=== PATIENT | male | born 1955 | race Caucasian/White ===

== ENCOUNTER 2022-01-26 10:07 | Outpatient (CLI) | payer MEDICARE, SELFPAY ==
--- NOTE | 2022-01-26 10:15 | CT_ITS ---
WS: [id number] LDCT LUNG CANCER SCREENING TECHNIQUE: Noncontrast CT of the chest with coronal and sagittal reformatted images. CLINICAL INFORMATION: NICOTINE DEPENDENCE COMPARISON: None. DLP: 86.70 mGy.cm DIvol: Mean CTDIvol: 1.60 (mGy) All CT scans at [facility] use at least one of these dose optimization techniques: automat ed exposure control; mA and/or kV adjustment per patient size (includes targeted exams where dose is matched to clinical indication); or iterative reconstruction. FINDINGS: No acute pulmonary infiltrates. No focal pneumonia or pleural fluid. Small amount of nodularity along the LEFT hilum. Calcified granuloma RIGHT lower lobe. Subsegmental atelectasis RIGHT middle lobe. Normal caliber thoracic aorta. Mild aortic calcification. Coronary calcification. No mediastinal or h ilar lymphadenopathy. No axillary lymphadenopathy. Adrenal glands are normal. Normal GE junction. Hypertrophic changes thoracic spine. CT/CT lung screening [id number] IMPRESSION: LUNG-RADS: 2-Benign Appearance or Behavior FOLLOW UP: 12 Month: Continue annual screening with LDCT
== END 2022-01-26 10:08 | disposition home or self-care (01) ==
PROVIDERS: PCP Nurse Practitioner Family; Visit Provider Family Medicine
DX: Z12.2 Encounter for screening for malignant neoplasm of respiratory organs (principal); F17.210 Nicotine dependence, cigarettes, uncomplicated
CPT/HCPCS: 71271

== ENCOUNTER 2022-06-28 10:09 | Inpatient (IN) | payer MEDICARE, SELFPAY ==
[2022-06-28] VITALS (38 sets, daily range): BP systolic 119–170; BP diastolic 77–99; PULSE 73–114; RESP 17–31; TEMP 36.6–37.4; O2SAT 86–96; BMI 26.4; BMI 36.1
--- NOTE | 2022-06-28 10:15 | XRR_ITS ---
PROCEDURE INFORMATION: Exam: XR Chest Exam date and time: 06/28/2022 10:21 AM Age: 67 years old Clinical indication: Cough and dyspnea; Additional info: Dyspnea/cough TECHNIQUE: Imaging protocol: Radiologic exam of the chest. Views: 1 view. COMPARISON: CR Chest 1 [place] [id number] 09/25/2018 4:23 PM FINDINGS: Lungs: Unremarkable. No consolidation. Pleural spaces: Unremarkable. No pleural effusion. No pneumothorax. Heart/Mediastinum: Unremarkable. No cardiomegaly. Bones/joints: Unremarkable. XR/XR chest 1V portable [id number] IMPRESSION: No acute findings.
[2022-06-28 10:25] LABS: Basophils # 0.1 10^3/uL (0.0-0.1); Monocytes # 0.7 10^3/uL (0.2-0.9); Nucleated Red Blood Cells % 0 %
--- NOTE | 2022-06-28 10:28 | CTR_ITS ---
PROCEDURE INFORMATION: Exam: CT Abdomen And Pelvis With Contrast Exam date and time: 06/28/2022 12:09 PM Age: 67 years old Clinical indication: Abdominal pain; Additional info: Abd pain TECHNIQUE: Imaging protocol: Computed tomography of the abdomen and pelvis with contrast. Radiation optimization: All CT scans at this facility use at least one of these dose optimization techniques: automated exposure control; mA and/or kV adjustment per patient size (includes targeted exams where dose is matched to clinical indication); or iterative reconstruction. Contrast material: OMNI 350; Contrast volume: 80 ml; Contrast route: INTRAVENOUS (IV); COMPARISON: CT pelvis wo con [id number] 09/25/2018 3:27 PM RADIATION DOSE METRICS: Total DLP (mGy-cm): 1079.33 FINDINGS: Liver: Hepatomegaly the liver span is 20 cm. No mass. Gallbladder and bile ducts: Normal. No calcified stones. No ductal dilation. Pancreas: Normal. No ductal dilation. Spleen: Normal. No splenomegaly. Adrenal glands: Normal. No mass. Kidneys and ureters: Normal. No hydronephrosis. Stomach and bowel: Unremarkable. No obstruction. No mucosal thickening. Appendix: No evidence of appendicitis. Intraperitoneal space: Unremarkable. No free air. No significant fluid collection. Vasculature: Unremarkable. No abdominal aortic aneurysm. Lymph nodes: Unremarkable. No enlarged lymph nodes. Urinary bladder: Unremarkable as visualized. Reproductive: Unremarkable as visualized. Bones/joints: Unremarkable. No acute fracture. Soft tissues: Unremarkable. CT/CT abdomen pelvis w con* [id number] IMPRESSION: 1. Hepatomegaly without focal hepatic abnormality. 2. Otherwise No acute findings.
--- NOTE | 2022-06-28 10:31 | ECG_ITS ---
[facility] Test Date: 2022-06-28 Pat Name: Sanchez Phillips Department: Room: Gender: Male Transitional Care Liaison: : 1955 Requested By: Haresh Gan Order Number: [id number] Sumanth MD: Chinyere Rosado M.D. Measurements Intervals [place] Rate: 112 P: 72 VA: 152 QRS: -39 QRSD: 92 T: 79 QT: 310 QTc: 425 Interpretive Statements SINUS TACHYCARDIA WITH OCCASIONAL ECTOPIC PREMATURE COMPLEXES LEFT AXIS DEVIATION [QRS AXIS < -30] SEPTAL MYOCARDIAL INFARCTION , PROBABLY OLD [40+ ms Q WAVE IN V1/V2] Compared to ECG 09/25/2018 13:00:42 Myocardial infarct finding now present Electronically Signed On 06-28-2022 18:00:28 CDT by Chinyere Rosado M.D. [email or web address] [id number]
[2022-06-28 10:33] LABS: Basophils % 0.3 %; Eosinophils % 0.1 %; Hematocrit 52.8 % (42.0-52.0); Lymphocytes # 1.4 10^3/uL (0.8-4.8); Lymphocytes % 8.8 %; Mean Corpuscular HGB Conc 32.2 g/dL (30.0-36.0); Mean Corpuscular Volume 93.1 fl (80-94); Mean Platelet Volume 11.2 fL (7.4-10.4); Monocytes % 4.5 %; Neutrophils # 13.77 10^3/uL (1.8-7.7); Neutrophils % 85.7 %; Platelet Count 148 10^3/cmm (130-400); Red Blood Count 5.67 10^6/uL (4.1-5.3); Red Cell Distribution Width 13.8 % (12.1-15.1); White Blood Count 16.1 10^3/uL (4.0-10.0)
[2022-06-28 11:05] LABS: Alanine Aminotransferase 10 U/L (0-41); Albumin Level 3.6 g/dL (3.5-5.2); Alkaline Phosphatase 139 U/L (40-130); Anion Gap 16.8 (5-19); Aspartate Amino Transferase 13 U/L (0-40); Blood Urea Nitrogen 24 mg/dL (8-23); Carbon Dioxide 25 mmol/L (22-29); Chloride 102 mmol/L (98-107); Globulin 3.8 g/dL (1.3-4.6); Glomerular Filtration Rate 60.2 mL/min (90-130); Glucose 197 mg/dL (65-115); Osmolality Calculated 298 mOsm/kg (285-295); Potassium 4.8 mmol/L (3.5-5.1); Sodium 139 mmol/L (136-145); Total Bilirubin 0.8 mg/dL (0.15-1.2); Total Protein 7.4 g/dL (6.6-8.7)
[2022-06-28] MEDS: iohexol 350 mg/mL 100 mL Btl IV (12:18)
--- NOTE | 2022-06-28 12:47 | W.ED.WEAKNES ---
HPI - Weakness General: Chief complaint: Weakness Stated complaint: GENERAL WEAKNESS/ BOWEL INCONTINENCE Time Seen by Provider: 06/28/22 10:14 Source: patient Mode of arrival: EMS Limitations: no limitations History of Present Illness: 59-year-old male presents emergency room from home with generalized weakness malaise and fevers been incontinent of stool and urine. 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 Was reported to have O2 sat of 87% on room air on arrival. He normally does not use oxygen. He has not had any orthopnea or PND he has had a cough which is nonproductive subtle low-grade fever as well. On arrival here he is tachycardic requiring 2 L by nasal cannula to maintain sats in the low 90s. He has had episodes of urinary and fecal incontinence since arriving here. He denies any medication melena hematemesis or coffee-ground emesis. Patient is diabetic and has a history of COPD. Is complaining of generalized abdominal pain as well. He is not currently having any chest pain or orthopnea. MD Complaint: generalized weakness Onset (ago): hour(s) Duration: constant Location: generalized Severity: moderate Relieving factors: none Exacerbating factors: none Associated symptoms: Reports chills, decreased appetite, fever(s), myalgias, nausea, short of breath and vomiting; Denies chest pain, confusion, melena, diaphoresis, dysuria, easy bruising, headache(s), rash or syncope Review of Systems Const: Reports: fever(s), chills, fatigue and malaise; Denies: diaphoresis ENMT: Denies: throat pain, ear or mastoid pain, nasal discharge or nasal congestion Card: Denies: chest pain, palpitations or syncope Resp: Reports: dyspnea and non-productive cough; Denies: productive cough GI: Reports: abdominal pain, nausea, vomiting, diarrhea and GI cramping; Denies: melena : Denies: flank pain, difficulty urinating, dysuria, urinary frequency or urinary urgency Musc: Denies: neck pain or back pain Skin/Breast: Denies: rash or pruritus Neuro: Denies: headache(s) or confusion Brennan/Lymph: Denies: easy bruising PFSH ED PFSH: Medical History Diabetes mellitus Hypertension Family History Mother Diabetes Lung disease CAD (coronary artery disease) Social History Quit status (tobacco): not considering quitting Second hand smoke exposure: Yes Alcohol intake: former Physical Exam Const: GENERAL APPEARANCE: cooperative ORIENTATION/CONSCIOUSNESS: Yes awake, Yes oriented to person, Yes oriented to place and Yes oriented to time HENMT: COMMON NORMALS: normocephalic, atraumatic and hearing grossly normal bilaterally HEAD & SCALP: normocephalic and atraumatic Resp: COMMON NORMALS: normal respiratory effort, No retractions, No use of accessory muscles and clear to auscultation bilaterally AUSCULTATION: clear to auscultation bilaterally Cardio: COMMON NORMALS: regular rhythm and No murmurs present (Cardio) RATE: tachycardic RHYTHM: regular rhythm GI: COMMON NORMALS: No hepatosplenomegaly present AUSCULTATION: Yes normoactive bowel sounds PALPATION: Yes Tenderness to palpation present (GI) (Diffuse), No Guarding due to palpation present (GI) and Yes No hepatosplenomegaly present Extremity: COMMON NORMALS: normal to inspection, capillary refill normal, no clubbing, cyanosis or edema, no calf tenderness and no pedal edema Neuro: SENSORIUM/ORIENTATION: Yes oriented to person, Yes oriented to place and Yes oriented to time Skin: COMMON NORMALS: no rashes or lesions noted GENERAL SKIN EXAM: no rashes or lesions noted Course Vital Signs: Vital signs: Vital Signs Temperature 99.2 F 06/28/22 10:37 Pulse Rate 73 06/28/22 15:45 Respiratory Rate 29 H 06/28/22 15:15 Blood Pressure 125/79 06/28/22 15:00 Pulse Oximetry 90 06/28/22 15:45 Oxygen Delivery Me thod 06/28/22 10:15 Oxygen Flow Rate 2 06/28/22 10:15 MDM - Weakness Medical Decision Making Labs imaging and EKGs reviewed as in the chart. Patient is having some hypoxia suspect he has some pneumonia as well as potential heart failure. We will empirically start him on antibiotics discussed with hospitalist will admit done ACDF on the patient. We are also still waiting on a UA. He is mildly volume contracted with a BUN of 24. His second troponin is pending. Orders written. Medical Records I reviewed the patient's medical records. Lab Data I reviewed the patient's lab results. : 06/28/22 10:19 06/28/22 10:19 Radiology Impressions Chest X-Ray 06/28/22 10:15 IMPRESSION: No acute findings. Abdomen/Pelvis CT 06/28/22 10:28 IMPRESSION: 1. Hepatomegaly without focal hepatic abnormality. 2. Otherwise No acute findings. Laboratory Results WBC 16.1 10^3/uL (4.0-10.0) H 06/28/22 10:19 RBC 5.67 10^6/uL (4.1-5.3) H 06/28/22 10:19 Hgb 17.0 g/dL (11.7-16.6) H 06/28/22 10:19 Hct 52.8 % (42.0-52.0) H 06/28/22 10:19 MCV 93.1 fl (80-94) 06/28/22 10:19 MCH 30.0 pg (28.0-34.0) 06/28/22 10:19 MCHC 32.2 g/dL (30.0-36.0) 06/28/22 10:19 RDW 13.8 % (12.1-15.1) 06/28/22 10:19 Plt Count 148 10^3/cmm (130-400) 06/28/22 10:19 MPV 11.2 fL (7.4-10.4) H 06/28/22 10:19 Neut % (Auto) 85.7 % 06/28/22 10:19 Lymph % (Auto) 8.8 % 06/28/22 10:19 [place] % (Auto) 4.5 % 06/28/22 10:19 Eos % (Auto) 0.1 % 06/28/22 10:19 Baso % (Auto) 0.3 % 06/28/22 10:19 Neut # (Auto) 13.77 10^3/uL (1.8-7.7) H 06/28/22 10:19 Lymph # (Auto) 1.4 10^3/uL (0.8-4.8) 06/28/22 10:19 [place] # (Auto) 0.7 10^3/uL (0.2-0.9) 06/28/22 10:19 Eos # (Auto) 0.0 10^3/uL (0.0-0.8) 06/28/22 10:19 Baso # (Auto) 0.1 10^3/uL (0.0-0.1) 06/28/22 10:19 Nucleated RBC % (auto) 0 % 06/28/22 10:19 Nucleated RBCs # 0.0 /100WBC 06/28/22 10:19 Sodium 139 mmol/L (136-145) 06/28/22 10:19 Potassium 4.8 mmol/L (3.5-5.1) 06/28/22 10:19 Chloride 102 mmol/L (98-107) 06/28/22 10:19 Carbon Dioxide 25 mmol/L (22-29) 06/28/22 10:19 Anion Gap 16.8 (5-19) 06/28/22 10:19 BUN 24 mg/dL (8-23) H 06/28/22 10:19 Creatinine 1.2 mg/dL (0.7-1.2) 06/28/22 10:19 GFR Calculation 60.2 mL/min (90-130) L 06/28/22 10:19 Glucose 197 mg/dL (65-115) H 06/28/22 10:19 POC Glucose 197 mg/dL (70-110) H 06/28/22 12:46 Calculated Osmolality 298 mOsm/kg (285-295) H 06/28/22 10:19 Calcium 9.0 mg/dL (8.5-10.5) 06/28/22 10:19 Total Bilirubin 0.8 mg/dL (0.15-1.2) 06/28/22 10:19 AST 13 U/L (0-40) 06/28/22 10:19 ALT 10 U/L (0-41) 06/28/22 10:19 Alkaline Phosphatase 139 U/L (40-130) H 06/28/22 10:19 Troponin T Baseline 18 ng/L (0-15) H 06/28/22 14:02 NT-Pro-B Natriuret Pep 331 pg/mL (0-125) H 06/28/22 10:19 Total Protein 7.4 g/dL (6.6-8.7) 06/28/22 10:19 Albumin 3.6 g/dL (3.5-5.2) 06/28/22 10:19 Globulin 3.8 g/dL (1.3-4.6) 06/28/22 10:19 Discharge Plan Discharge Patient Disposition: Placed in Observation Clinical Impression: Hypoxia, Fever, Pneumonia, Diarrhea Condition: Stable Prescriptions: No Action insulin aspart U-100 [Novolog Flexpen U-100 Insulin] 100 unit/mL (3 mL) insulin pen See Rx Instructions .ROUTE .COMPLEX Rx Instructions: 3 - 5 unit subcutaneously per sliding scale Lantus U-100 Insulin 100 unit/mL solution 60 unit SUBCUT DAILY clotrimazole 1 % cream 1 applic TOPICAL BID 90 Days Qty: 90 0RF atorvastatin 40 mg Tablet 40 mg PO BEDTIME amlodipine 5 mg tablet 5 mg PO DAILY hydroxyzine HCl 25 mg tablet 25 mg PO TID PRN (Reason: Anxiety) duloxetine 60 mg Capsule,Delayed Release(Dr/Ec) 60 mg PO DAILY pregabalin 50 mg Capsule 50 mg PO TID Farxiga 10 mg Tablet 10 mg PO DAILY Advair Diskus 250-50 mcg/dose Blister With Device 1 inh INHALATION BID albuterol sulfate 90 mcg/actuation Hfa Aerosol Inhaler 2 puff INHALATION 6XD PRN (Reason: Shortness Of Breath) Referrals: Naheed Tesfaye FNP [Primary Care Provider] - Patient Instructions: Opioid Safety Coding Level of Care Code ED It Investment/Portfolio Manager for Youg Fwd Exam Detailed
[2022-06-28 12:48] LABS: Glucose Point of Care 197 mg/dL (70-110)
[2022-06-28 13:49] LABS: NT Pro B Type Natriuretic Pept 331 pg/mL (0-125)
[2022-06-28 14:33] LABS: Troponin(5th) Baseline 18 ng/L (0-15)
--- NOTE | 2022-06-28 15:07 | ECG_ITS ---
[facility] Test Date: 2022-06-28 Pat Name: Sanchez Phillips Department: Room: Gender: Male Exhibition Carver: : 1955 Requested By: Haresh Gan Order Number: [id number] Sumanth MD: Chinyere Rosado M.D. Measurements Intervals [place] Rate: 103 P: 77 [place]: 179 QRS: -14 QRSD: 101 T: 67 QT: 352 QTc: 461 Interpretive Statements SINUS TACHYCARDIA WITH OCCASIONAL ECTOPIC PREMATURE COMPLEXES Compared to ECG 06/28/2022 10:31:27 Left-axis deviation no longer present Myocardial infarct finding no longer present Electronically Signed On 06-28-2022 18:17:17 CDT by Chinyere Rosado M.D. [id number]
[2022-06-28 16:54] LABS: Troponin 5 2HR 17.71 ng/L (0-15)
--- NOTE | 2022-06-28 16:59 | P.HP_ITS ---
Providers/Chief Complaint Admitting Physician: Mary Mejia MD Primary Care Provider: Naheed Tesfaye Chief Complaint: GENERAL WEAKNESS/ BOWEL INCONTINENCE History of Present Illness Sanchez Phillips is a 67 year old male who presented to the emergency room with chief complaint of not feeling well, being unable to get out of bed and generally not feeling well today. Patient was in his usual state of health per his last evening. They ate dinner and later went to bed. Patient seemed okay prior to that. Mr. Phillips and his do sleep in separate rooms so she is not sure what happened in the interim. When she got up this morning she went to his room and the heater was on. He was mumbling and not making sense. When she evaluated a bit further he had had bladder and bowel incontinence. He does not really remember what happened. No recollection of if he had tried to get up to go to the bathroom. He spends probably 90% of his time in bed due to severe peripheral neuropathy related to diabetes and inability to stand anything touching his feet including standing on his feet. Usually however he can attend to his ADLs as needed with assistance. Patient was significantly weaker than his baseline. Even with additional family help they were unable to get him up. No definitive fever but he felt warm. Patient has had prior episodes of significant infection and family was concerned that something like that was happening again. EMS was called and brought patient in for further evaluation. They noted that his room air oxygen saturation was 87%. When specifically asked, patient admits to being maybe a little bit more short of breath. No increased cough or sputum production. Patient's says that he always ends up being sent home from hospitals with oxygen but when he gets home his oxygen levels are okay. He does not have chronic oxygen available to him at home currently. Work-up in the emergency room revealed significant stool inconti nence to the point that a rectal tube was placed. No recent antibiotic usage. No one else in the family is sick. Does not usually have issues with diarrhea. CT of the abdomen did not show any acute process. Chest x-ray was unremarkable. White count though was 16,000. Given the hypoxemia clinical impression was for pneumonia and Mr. Phillips received antibiotics. Hospitalist for asked to admit for further care and evaluation as indicated. Attempts to get urinalysis in the emergency room were thus far unsuccessful. 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 Attempt to place catheter in urethral opening behind the scrotal sac were unsuccessful and patient has declined additional attempts. Denies burning or stinging or difficulty/change in urination prior to today. Did not have any diarrhea yesterday. No vomiting. No new areas of pain identified beyond IV placement site to left forearm. Offer was made to replace IV but patient chose to maintain current line. While in the emergency room erythema developed on the right lower extremity extending up the leg. He has chronic dry skin and scratches his thighs as well as under his pannus. He follows with Dr. Gaxiola for foot care but has not seen him for some time. He has a known diabetic and has had previous wounds that were slow to heal. He has known history of peripheral vascular disease having previously undergone vascular radiofrequency ablation procedure by Dr. Cui. Review of Systems Const: Reports: fever(s) (Subjective), chills, body aches, fatigue, malaise, night sweats and diaphoresis (Has completely soaked pillow at home and here) Eyes: Denies: change in vision or photophobia ENMT: Denies: throat pain, oral sores or nasal congestion Card: Denies: chest pain, palpitations or edema Resp: Reports: dyspnea and non-productive cough; Denies: productive cough, pain on inspiration or hemoptysis GI: Reports: abdominal pain, nausea and diarrhea; Denies: vomiting, constipation or hematochezia : Reports: genital lesions (Scrotum red since penectomy; intertriginous erythema new) and other (Status post penectomy, urinates via post scrotal urethral opening); Denies: dysuria or hematuria Musc: Reports: extremity pain (Chronic related to neuropathy, hurts anywhere you touch him), muscle weakness and decrease in muscle mass Skin/Breast: Reports: rash (Chronic irritation to skin in the pannus and both thighs right greater than), pruritus (Pannus and both thighs) and erythema (To right lower extremity has developed since presentation to the emergency ); Denies: sores (Right medial ankle, thighs and abdomen) Neuro: Reports: numbness in extremities (Along with severe pain due to neuropathy), weakness in extremities (Acute on chronic generalized) and confusion (Transient when first found him this morning); Denies: headache(s) or difficulty walking Psych: Reports: anxiety and depression Endo: Reports: polydipsia (But not had much to drink today) Brennan/Lymph: Denies: easy bruising or easy bleeding Medications/Allergies Home Medications Medication Instructions Recorded Confirmed Last Taken Type clotrimazole 1 % topical cream 1 applic topical BID 3 months #90 09/03/20 06/28/22 06/27/22 Rx grams insulin aspart U-100 100 unit/mL See Rx Instructions .Route .COMPLEX 09/03/20 06/28/22 06/27/22 History (3 mL) subcutaneous pen (Novolog Flexpen U-100 Insulin aspart) insulin glargine 100 unit/mL 60 unit SUBCUT DAILY 09/03/20 06/28/22 06/27/22 History subcutaneous solution (Lantus U-100 Insulin) albuterol sulfate 90 mcg/actuation 2 puff inhalation 6XD PRN 06/28/22 06/28/22 Unknown History aerosol inhaler Shortness Of Breath amlodipine 5 mg tablet 5 mg PO DAILY 06/28/22 06/28/22 06/27/22 History atorvastatin 40 mg tablet 40 mg PO BEDTIME 06/28/22 06/28/22 06/27/22 History dapagliflozin 10 mg tablet 10 mg PO DAILY 06/28/22 06/28/22 06/27/22 History (Farxiga) duloxetine 60 mg capsule,delayed 60 mg PO DAILY 06/28/22 06/28/22 06/27/22 History release fluticasone 250 mcg-salmeterol 50 1 inh inhalation BID 06/28/22 06/28/22 06/27/22 History mcg/dose blistr powdr for inhalation (Advair Diskus) hydroxyzine HCl 25 mg tablet 25 mg PO TID PRN Anxiety 06/28/22 06/28/22 06/27/22 History pregabalin 50 mg capsule 50 mg PO TID 06/28/22 06/28/22 06/27/22 History Allergies Allergy/AdvReac Type Severity Reaction Status Date / Time No Known Allergies Allergy Verified 06/28/22 11:30 PFSH Acute PFSH: Medical History (Updated 06/28/22 @ 22:09 by Mary Mejia MD) Chronic kidney disease, stage III (moderate) COPD (chronic obstructive pulmonary disease) Depression with anxiety Diabetes mellitus, type II Diabetic peripheral neuropathy History of renal dialysis Required temporary dialysis after a severe bout of influenza Hyperlipidemia Hypertension Nicotine dependence, cigarettes, with other nicotine-induced disorders Penile cancer Peripheral vascular disease Plantar porokeratosis, acquired Surgical History (Updated 06/28/22 @ 21:54 by Mary Mejia MD) History of incision and drainage History of penectomy Prior to surgical removal due to cancer had had invasive intervention for marvin kortney stenosis and circumcision Status post endovenous radiofrequency ablation of saphenous vein Family History Mother Diabetes Lung disease CAD (coronary artery disease) Social History (Updated 06/28/22 @ 21:54 by Mary Mejia MD) Smoking and tobacco status: current every day smoker cigarettes Packs smoked per day: 1 Years cigarettes smoked: 51 Quit status (tobacco): not considering quitting Alcohol intake: former Household members: spouse Vitals/I&O/Wt Last Vital Signs Temp 99.2 F 06/28/22 10:37 Pulse 97 06/28/22 16:30 Resp 30 H 06/28/22 16:30 BP 125/79 06/28/22 15:00 Pulse Ox 90 06/28/22 16:30 O2 Del Method 06/28/22 10:15 O2 Flow Rate 2 06/28/22 10:15 Weight last 48 hrs Weight 86.183 kg Physical Exam Narrative: Constitutional: Patient is lethargic but arousable, answers questions, provides majority of details as does daughter because he cannot recall events of today fully during the time he was probably febrile, looks both acutely and chronically ill, jumps anywhere you touch him HEENT: Normocephalic, conjunctive are mildly injected, extraocular movements i ntact, oropharynx with very dry mucous membranes and erythematous posterior oropharynx with some stippling noted though patient denies any pain or difficulty swallowing, frequent yawning during exam, no photophobia Neck: Supple, large Respiratory: Clear to auscultation bilaterally without any rales rhonchi or wheezes noted Cardiovascular: Regular rate and rhythm, no murmurs, no JVD, pulses 1+ x4 Abdomen: Soft, rotund, positive bowel sounds, no rebound or guarding though tender anywhere he is touched : Status post penectomy, scrotal sac is quite erythematous but per at the bedside is similar to usual appearance, not acutely tender beyond what I would expect, soft without crepitus, I was not able to visualize urinary opening due to patient not wanting further evaluation currently but intertriginous areas around the scrotal sac with very erythematous skin with satellite lesions, not significantly odorous, no areas of externally obvious necrosis identified, has recently urinated in bed Extremities: Chronic stasis changes noted to both lower extremities with areas of hyperpigmentation bilaterally. Right lower extremity is warm to touch compared to left with defined area of erythema extending from ankle to below the knee. Skin is tender to touch though difficult to assess as patient is extremely tender anywhere you touch him in the lower extremities chronically. Literally cannot handle a whisper of a touch without withdrawing in pain. There is an approximately 5 mm round wound brownish erythematous color in the upper po rtion of the right arch of the foot medially and extending from that a line of some scabbing over a vein, no drainage the wounds look crusted. Patient has very hyperkeratotic nails as well as hypertrophic skin to both feet Skin: In addition to skin findings already noted in other parts of this examination, large area of chronic irritation at the pannus as well as on the u pper thighs with sores in different stages of healing, all appear old and scabbed rather than purulent and acute, no active bleeding seen, outer edges of these wounds are erythematous with chronic skin reconfiguration from repeated healing Neuro: Speech clear, face symmetric, moves all extremities, very hypersensitive to touch in terms of pain particularly to the lower extremities but really anywhere, no abnormal movements beyond jerking from touch's and pain Psych: Normal affect once awake Data : 06/28/22 10:19 06/28/22 10:19 Other Labs: Radiology Impressions Chest X-Ray 06/28/22 10:15 IMPRESSION: No acute findings. Abdomen/Pelvis CT 06/28/22 10:28 IMPRESSION: 1. Hepatomegaly without focal hepatic abnormality. 2. Otherwise No acute findings. Laboratory Results WBC 16.1 10^3/uL (4.0-10.0) H 06/28/22 10:19 RBC 5.67 10^6/uL (4.1-5.3) H 06/28/22 10:19 Hgb 17.0 g/dL (11.7-16.6) H 06/28/22 10:19 Hct 52.8 % (42.0-52.0) H 06/28/22 10:19 MCV 93.1 fl (80-94) 06/28/22 10:19 MCH 30.0 pg (28.0-34.0) 06/28/22 10:19 MCHC 32.2 g/dL (30.0-36.0) 06/28/22 10:19 RDW 13.8 % (12.1-15.1) 06/28/22 10:19 Plt Count 148 10^3/cmm (130-400) 06/28/22 10:19 MPV 11.2 fL (7.4-10.4) H 06/28/22 10:19 Neut % (Auto) 85.7 % 06/28/22 10:19 Lymph % (Auto) 8.8 % 06/28/22 10:19 [place] % (Auto) 4.5 % 06/28/22 10:19 Eos % (Auto) 0.1 % 06/28/22 10:19 Baso % (Auto) 0.3 % 06/28/22 10:19 Neut # (Auto) 13.77 10^3/uL (1.8-7.7) H 06/28/22 10:19 Lymph # (Auto) 1.4 10^3/uL (0.8-4.8) 06/28/22 10:19 [place] # (Auto) 0.7 10^3/uL (0.2-0.9) 06/28/22 10:19 Eos # (Auto) 0.0 10^3/uL (0.0-0.8) 06/28/22 10:19 Baso # (Auto) 0.1 10^3/uL (0.0-0.1) 06/28/22 10:19 Nucleated RBC % (auto) 0 % 06/28/22 10:19 Nucleated RBCs # 0.0 /100WBC 06/28/22 10:19 Sodium 139 mmol/L (136-145) 06/28/22 10:19 Potassium 4.8 mmol/L (3.5-5.1) 06/28/22 10:19 Chloride 102 mmol/L (98-107) 06/28/22 10:19 Carbon Dioxide 25 mmol/L (22-29) 06/28/22 10:19 Anion Gap 16.8 (5-19) 06/28/22 10:19 BUN 24 mg/dL (8-23) H 06/28/22 10:19 Creatinine 1.2 mg/dL (0.7-1.2) 06/28/22 10:19 GFR Calculation 60.2 mL/min (90-130) L 06/28/22 10:19 Glucose 197 mg/dL (65-115) H 06/28/22 10:19 POC Glucose 197 mg/dL (70-110) H 06/28/22 12:46 Calculated Osmolality 298 mOsm/kg (285-295) H 06/28/22 10:19 Calcium 9.0 mg/dL (8.5-10.5) 06/28/22 10:19 Total Bilirubin 0.8 mg/dL (0.15-1.2) 06/28/22 10:19 AST 13 U/L (0-40) 06/28/22 10:19 ALT 10 U/L (0-41) 06/28/22 10:19 Alkaline Phosphatase 139 U/L (40-130) H 06/28/22 10:19 Troponin T Baseline 18 ng/L (0-15) H 06/28/22 14:02 Troponin T 120 Minute 17.71 ng/L (0-15) H 06/28/22 16:22 Delta Troponin T -0.29 ABS# (0-10) L 06/28/22 16:22 NT-Pro-B Natriuret Pep 331 pg/mL (0-125) H 06/28/22 10:19 Total Protein 7.4 g/dL (6.6-8.7) 06/28/22 10:19 Albumin 3.6 g/dL (3.5-5.2) 06/28/22 10:19 Globulin 3.8 g/dL (1.3-4.6) 06/28/22 10:19 Micro: Microbiology 06/28/22 11:20 Occult Blood (FIT) - Final Stool Routine Collection 06/28/22 10:43 Blood Culture - Preliminary Blood SPECIMEN COLLECTED 06/28/22 10:45 Blood Culture - Preliminary Blood SPECIMEN COLLECTED A&P Assessment and plan (1) Cellulitis of right lower extremity: Likely stemming from skin sores on feet, particularly a medial sore noted at the arch of the right lower extremity Has associated leukocytosis, subjective fever and chills, transient encephalopathy that sounds related to fever and progressive red streaks on examination, at significant risk for progression to severe sepsis without appropriate treatment and intervention; currently not meeting criteria for severe sepsis otherwise. Status: Acute (2) Hypoxia: Described as acute but on further review indicates that he has frequently h ad hypoxemia when evaluated in hospital setting, known COPD and smoker, not on chronic oxygen though has been discharged with oxygen previously. Indicates that when he gets home his oxygen levels have always been okay. No pleuritic type chest pain but does describe some increased shortness of breath and a nonproductive cough. No known history of coronary disease or CHF. Has not had COVID. No known sick contacts with COVID. COVID testing remains pending. Status: Acute (3) Diarrhea: Large-volume today, suspect related to overall infectious process currently. Await urine. No recent antibiotics or known sick contacts. Status: Acute (4) Diabetes mellitus, type II: Insulin requiring, with peripheral neuropathy and chronic kidney disease. Neuropathy is quite severe and debilitating for Mr. Phillips limiting his activity level and drastically altering his pain threshold. Chronically on Lantus as well as short acting insulin and Farxiga On gabapentin for neuropathy Status: Chronic Qualifiers: Diabetes mellitus termite exterminator helper insulin use: with termite exterminator helper use Diabetes mellitus complication status: with neurologic complications Diabetes mellitus complication detail: with polyneuropathy Qualified Code(s): E11.42 - Type 2 diabetes mellitus with diabetic polyneuropathy; Z79.4 - [facility] (current) use of insulin (5) Tinea cruris: Status: Acute (6) COPD (chronic obstructive pulmonary disease): Clinically does not appear acute at the moment beyond the hypoxemia noted on examination, no wheezes or productive cough. Chronically on albuterol and Advair Status: Chronic (7) Hypertension: Chronically on amlodipine Status: Chronic (8) Chronic kidney disease, stage III (moderate): With prior history of transient dialysis during an episode of severe influenza back in 2013 Status: Chronic Qualifiers: Chronic kidney disease stage 3 subtype: stage 3a (GFR 45-59) Qualified Code(s): N18.31 - Chronic kidney disease, stage 3a (9) Nicotine dependence, cigarettes, with other nicotine-induced disorders: Status: Chronic (10) Body mass index [BMI] 36.0-36.9, adult: Status: Chronic Plan Dyslipidemia on chronic statin therapy Anxiety and depression on Cymbalta and as needed hydroxyzine Inpatient admission Vancomycin and Zosyn Monitor sores to right foot and right lower extremity for acute clinical changes Elevate right lower extremity Check baseline sed rate and CRP Add Diflucan orally and continue clotrimazole cream Follow-up pending urine -reviewed with nursing staff options to get as close to a clean-catch specimen as we are able including a pedi bag, bedpan with extended prep and the lack; patient declines any further attempts at catheterization of urinary meatus Follow-up pending COVID testing Blood cultures have been collected Check procalcitonin Continue albuterol and Advair along with oxygen supplementation Check room air ABG Will decrease dose of Lantus to 50 units until we ensure he is taking appropriate oral intake along with moderate dose sliding scale Hold home Farxiga Continue home gabapentin Presently holding home amlodipine until assured of patient's stability We will continue low rate of IV fluids tonight, reevaluating electrolytes and overall volume status tomorrow Continue already ordered serial cardiac enzymes and EKGs Continue home statin therapy Continue home duloxetine and hydroxyzine as needed Nicotine patch if needed Add lactobacillus Lovenox for DVT prophylaxis Supportive care otherwise Currently anticipate discharge home with outpatient follow-up; depending on clinical course may benefit from short-term home health Findings, concerns and plans were reviewed with patient, his and his daughter and all were given an opportunity to ask questions. Patient was clear in his dislike of the hospital but willing to stay understanding that he is in current need of care. He has not been hospitalized for several years. Full code Attestations Medical Necessity Statement*: Anticipated stay greater than two midnights in this gentleman with comorbid conditions presenting with cascade of symptoms strongly suggestive of acute infectious process who has been found to have developing cellulitis of the right lower extremity. In addition to this he was found to be hypoxic. Likely has a component of chronic hypoxemia related to COPD and ongoing tobacco use but at risk for acute pulmonary process as well. Initial imaging unremarkable. Alternative source is skin in the groin and other areas where he has chronic dry skin and itching and has scratched himself. Given his limited baseline activity and comorbidities at high risk of rapid clinical decline without monitored inpatient care and treatment as described Coding Level of Care Code Acute Parachute Inspector for Martha Fwd Diagnoses Cellulitis of right lower extremity L03.115 Hypoxia R09.02 Diarrhea R19.7 Diabetes mellitus, type II E11.42; Z79.4 Diabetes mellitus termite exterminator helper insulin use: with termite exterminator helper use Diabetes mellitus complication status: with neurologic complications Diabetes mellitus complication detail: with polyneuropathy Tinea cruris B35.6 COPD (chronic obstructive pulmonary disease) J44.9 Hypertension I10 Chronic kidney disease, stage III (moderate) N18.31 Chronic kidney disease stage 3 subtype: stage 3a (GFR 45-59) Nicotine dependence, cigarettes, with other nicotine-induced disorders F17.218 Body mass index [BMI] 36.0-36.9, adult Z68.36
[2022-06-28 17:01] LABS: Troponin 5 2HR Delta -0.29 ABS# (0-10)
--- NOTE | 2022-06-28 18:32 | USCV_ITS ---
Sanchez Phillips Age: 67 Gender: M : 1955 Exam Date: 06/28/2022 23:41 Ordering Phys: Mary Mejia MD Technologist: VANESA Exam Location: [facility] [place] Indication: severe neuropathy, chronic cellulitis, No history of DVT per patient. HISTORY: severe neuropathy, chronic cellulitis, No history of DVT per patient. PROCEDURES: Venous duplex imaging was performed in bilateral lower extremities. The venous duplex Doppler examination of both lower extremities was performed in the standard fashion. The following venous structures were evaluated: common femoral vein, profunda vein, proximal portion of the greater saphenous vein, superficial femoral vein, and the popliteal vein. In addition, the posterior tibial veins were evaluated. Serial compression, augmentation maneuvers, and spectral Doppler flow evaluation were performed, which were normal. Bilaterally, the common femoral, superficial femoral, profunda femoral, popliteal, posterior tibial, and greater saphenous veins were identified and interrogated in the standard fashion. These veins were found to be easily compressible with spontaneous blood flow. No evidence of thrombus noted. CONCLUSIONS No evidence of right lower extremity DVT. No evidence of left lower extremity DVT. Torsten Beckett MD (Electronically Signed) Final Date: 29 June 2022 10:28 S
[2022-06-28 19:20] LABS: Erythrocyte Sedimentation Rate 63 mm/hr (0-10)
[2022-06-28 19:25] LABS: Adenovirus Not Detected (NOT DETECT); Chlamydia Pneumoniae Not Detected (NOT DETECT); Coronavirus 229E,HKU1,NL63,OC4 Not Detected (NOT DETECT); Human Metapneumovirus Not Detected (NOT DETECT); Human Rhinovirus/Enterovirus Not Detected (NOT DETECT); Influenza A Not Detected (NOT DETECT); Influenza A H1 Not Detected (NOT DETECT); Influenza A H1-2009 Not Detected (NOT DETECT); Influenza A H3 Not Detected (NOT DETECT); Influenza B Not Detected (NOT DETECT); Mycoplasma Pneumoniae Not Detected (NOT DETECT); Parainfluenza Virus Type 1 Not Detected (NOT DETECT); Parainfluenza Virus Type 2 Not Detected (NOT DETECT); Parainfluenza Virus Type 3 Not Detected (NOT DETECT); Parainfluenza Virus Type 4 Not Detected (NOT DETECT); Respiratory Syncytial Virus A Not Detected (NOT DETECT); Respiratory Syncytial Virus B Not Detected (NOT DETECT); SARS-COV-2 Not Detected (NOT DETECT)
--- NOTE | 2022-06-28 19:31 | ECG_ITS ---
[facility] Test Date: 2022-06-28 Pat Name: Sanchez Phillips Department: Room: 270 Gender: Male Records Analyst: : 1955 Requested By: Haresh Gan Order Number: [id number] Sumanth MD: Slava Thompson M.D. Measurements Intervals [place] Rate: 96 P: 72 [place]: 185 QRS: -24 QRSD: 103 T: 49 QT: 352 QTc: 446 Interpretive Statements SINUS RHYTHM WITH OCCASIONAL ECTOPIC PREMATURE COMPLEXES BORDERLINE LEFT AXIS DEVIATION [QRS AXIS < -20] Compared to ECG 06/28/2022 15:07:00 Sinus tachycardia no longer present Electronically Signed On 06-29-2022 17:21:50 CDT by Slava Thompson M.D. [id number]
[2022-06-28 20:00] LABS: Procalcitonin 0.42 ng/mL (0-0.5)
[2022-06-28 20:30] LABS: Add Urine Culture? No; Add Urine Microscopic? YES; Amorphous Sediment Urine TRACE /hpf; Bacteria Urine 1+ /hpf; Bilirubin Urine Neg (Negative); Blood Urine 3+ (Negative); Glucose Urine UA 4+ (Normal); Ketones Urine Negative (Negative); Leukocyte Esterase Urine 2+ (Negative); Nitrate Urine Negative (Negative); Protein Urine 3+ (Negative); Specific Gravity, Urine 1.015 (1.005-1.030); Urine Appearance SL Hazy (CLEAR); Urine Color Yellow (Yellow); Urobilinogen Urine 1 mg/dL (Negative); WBC Urine >100 /hpf (0-5); pH Urine 5 (5-7)
[2022-06-28 21:06] LABS: Troponin 5 6HR 16.28 ng/L (0-15)
[2022-06-28 21:24] LABS: Glucose Point of Care 352 mg/dL (70-110)
[2022-06-28 21:31] LABS: Troponin 5 6HR Delta -1.72 ng/L (0-12)
[2022-06-28] MEDS: pregabalin 50 mg Capsule PO (21:46)
[2022-06-28] MEDS: lactobacillus 1 Tablet 1 TAB PO (21:46)
[2022-06-28] MEDS: atorvastatin 40 mg Tablet PO (21:46)
[2022-06-28] MEDS: piperacillin-tazobactam 3.375 GM in sodium chloride 0.9% (plus) 50 ML IV (21:47)
[2022-06-28] MEDS: enoxaparin 40 mg/0.4 mL Syringe SUBCUT (21:47)
[2022-06-28] MEDS: vancomycin 1,500 MG/300 ML PIGGYBACK 200 MG IV (21:47)
[2022-06-28] MEDS: insulin lispro 100 unit/1 mL SUBCUT (21:49)
[2022-06-28] MEDS: clotrimazole 1% cream 30 gm 1 APPLIC TOPICAL (22:57)
[2022-06-28] MEDS: sodium chloride 0.9% 1,000 ML 75 ML IV (23:00)
[2022-06-28] MEDS: hyDROXYzine 25 mg Capsule PO (23:43)
[2022-06-29] VITALS (10 sets, daily range): BP systolic 134–162; BP diastolic 62–92; PULSE 83–99; RESP 16–20; TEMP 36.3–36.9; O2SAT 87–95
[2022-06-29] MEDS: piperacillin-tazobactam 3.375 GM in sodium chloride 0.9% (plus) 50 ML IV ×3 (04:59→21:11)
[2022-06-29 05:06] LABS: ABG PCO2 47.7 mmHg (35-45); ABG PH Result 7.36 (7.35-7.45); Base Excess ABG 0.7 mmol/L (-2.0-2.0); Blood Gas Allen Test Pos; Blood Gas Sample Site Radial, right; Blood Gas Sample Type Arterial; HCO3 ABG 26.9 mmol/L (22-26); Oxygen Device NC; PO2 ABG 58.2 mmHg (80.0-100.0)
[2022-06-29 05:17] LABS: Basophils % 0.5 %; Eosinophils # 0.2 10^3/uL (0.0-0.8); Eosinophils % 2.9 %; Hematocrit 52.6 % (42.0-52.0); Hemoglobin 16.6 g/dL (11.7-16.6); Lymphocytes # 1.6 10^3/uL (0.8-4.8); Lymphocytes % 19.3 %; Mean Corpuscular HGB Conc 31.6 g/dL (30.0-36.0); Mean Corpuscular Hemoglobin 30.5 pg (28.0-34.0); Mean Corpuscular Volume 96.5 fl (80-94); Monocytes # 0.8 10^3/uL (0.2-0.9); Monocytes % 9.3 %; Neutrophils % 67.3 %; Nucleated Red Blood Cells % 0 %; Platelet Count 146 10^3/cmm (130-400); Red Blood Count 5.45 10^6/uL (4.1-5.3); White Blood Count 8.2 10^3/uL (4.0-10.0)
[2022-06-29 05:32] LABS: D Dimer 0.78 ug/mIFEU (0-0.59)
[2022-06-29 05:34] LABS: Magnesium 1.9 mg/dL (1.7-2.3)
[2022-06-29 05:41] LABS: Alanine Aminotransferase 10 U/L (0-41); Albumin Level 3.4 g/dL (3.5-5.2); Alkaline Phosphatase 132 U/L (40-130); Anion Gap 12.1 (5-19); Aspartate Amino Transferase 12 U/L (0-40); Blood Urea Nitrogen 22 mg/dL (8-23); Carbon Dioxide 28 mmol/L (22-29); Chloride 103 mmol/L (98-107); Globulin 3.6 g/dL (1.3-4.6); Glomerular Filtration Rate 66.6 mL/min (90-130); Glucose 255 mg/dL (65-115); Osmolality Calculated 300 mOsm/kg (285-295); Potassium 4.1 mmol/L (3.5-5.1); Sodium 139 mmol/L (136-145); Total Bilirubin 0.5 mg/dL (0.15-1.2)
[2022-06-29 06:27] LABS: Glucose Point of Care 222 mg/dL (70-110)
[2022-06-29] MEDS: pregabalin 50 mg Capsule PO ×3 (10:11→21:10)
[2022-06-29] MEDS: insulin glargine 100 units/1 mL 55 UNIT SUBCUT (10:11)
[2022-06-29] MEDS: duloxetine 60 mg Capsule PO (10:11)
[2022-06-29] MEDS: lactobacillus 1 Tablet 1 TAB PO ×2 (10:11→17:39)
[2022-06-29] MEDS: fluconazole 100 mg Tablet 200 MG PO (10:11)
[2022-06-29] MEDS: insulin lispro 100 unit/1 mL SUBCUT ×4 (10:12→22:49)
[2022-06-29] MEDS: clotrimazole 1% cream 30 gm 1 APPLIC TOPICAL ×2 (10:16→17:38)
--- NOTE | 2022-06-29 11:57 | PC.CHAP ---
Pastoral Care Encounter/Spiritual Assessment Type of Contact [] Declined television and radio repairer visit [] Patient/Family/Request visit [] Outpatient visit [] Follow-up visit [] Physician referral [] Code/Alert [x] Routine visit [] Staff referral [] Actively dying [] Patient sleeping [] Family support [] [] Out of room [] Palliative care [] [] Receiving care in room [] Pre-surgical visit [] Trauma [] Long length of stay [] ICU visit [] Other: Relational/Emotional Strength [x] Patient feels connected with others/family/visitors/staff [] Distress [] Loneliness/isolation [] Abandonment Spirituality of Patient [x] Person of Shaina [] Attends Latter-Day of their Shaina [x] Believes in Prayer [] Reads Bible or Amish materials [x] There are Spiritual issues to be addressed Parts Counterperson Interventions [x] Prayer [x] Active listening [x] Non-anxious presence [] Spiritual/emotional support [] Crisis/trauma care [] Spiritual counseling [] Bereavement support [] Provided bereavement packet [] Provided Bible/devotional materials [] Provided toy/stuffed animal, coloring book to patient or family member [] Provided Communion [] Anointing/[place] [] Salvation [x] Completed spiritual assessment [] Other: Impact on Illness or Injury [] Angry [] Fearful [] Anxious [] Often cries [] Exhaustion [] Unable to work [] Unable to attend nondenominational [] Unable to walk/stand [] Unable to read [] Unable to drive [] Unable to eat/drink [] Unable to sleep [] Unable to be with family [] Patient intubated [] Other: Summary Time spent with patient 10 min
[2022-06-29 12:02] LABS: Glucose Point of Care 287 mg/dL (70-110)
--- NOTE | 2022-06-29 12:15 | PM.PN ---
Subjective Subjective: Morning patient is awake and alert Patient is endorsing feeling better He has been diagnosed with UTI Nonpurulent cellulitis of right foot Willing to stay 1 more day Cultures negative Afebrile No leukocytosis CT abdomen pelvis did not show hydronephrosis, no signs of DVT Vitals/I&O/Wt Last Vital Signs Temp 98.5 F 06/29/22 11:04 Pulse 98 06/29/22 11:04 Resp 18 06/29/22 11:04 BP 135/79 06/29/22 11:04 Pulse Ox 90 06/29/22 11:04 O2 Del Method 06/29/22 11:04 O2 Flow Rate 4 06/29/22 11:04 06/28/22 06/29/22 06/29/22 22:59 06:59 14:59 Intake Total 50 / 50 830 / 830 Output Total 150 / 150 Balance -100 / -100 830 / 830 Weight last 48 hrs Weight 117.753 kg Weight 86.183 kg Physical Exam Narrative: Patient is awake and alert Nonfocal neuro exam Right leg nonpurulent cellulitis He is not confused at all Nonfocal neuro exam Currently saturating well on 4 L nasal cannula Abdomen soft, distended, Satting well on room air S1, S2 Data : 06/29/22 04:45 06/29/22 04:45 Micro: Microbiology 06/28/22 10:43 Blood Culture - Preliminary Blood NEGATIVE TO DATE 06/28/22 10:45 Blood Culture - Preliminary Blood 06/28/22 11:20 Stool Lactoferrin - Final Stool 06/28/22 11:20 C.difficile Toxin B Gene (PCR) - Final Stool Routine Collection 06/28/22 11:20 Occult Blood (FIT) - Final Stool Routine Collection A&P Assessment and plan (1) Hypertension: Status: Chronic (2) Plantar porokeratosis, acquired: Status: Chronic (3) Hypoxia: Status: Acute (4) Fever: Status: Acute (5) Diarrhea: Status: Acute (6) Diabetes mellitus, type II: Status: Chronic Qualifiers: Diabetes mellitus ferry terminal supervisor insulin use: with ferry terminal supervisor use Diabetes mellitus complication status: with neurologic complications Diabetes mellitus complication detail: with polyneuropathy Qualified Code(s): E11.42 - Type 2 diabetes mellitus with diabetic polyneuropathy; Z79.4 - intermediate teacher (current) use of insulin (7) Chronic kidney disease, stage III (moderate): Status: Chronic Qualifiers: Chronic kidney disease stage 3 subtype: stage 3a (GFR 45-59) Qualified Code(s): N18.31 - Chronic kidney disease, stage 3a (8) COPD (chronic obstructive pulmonary disease): Status: Chronic (9) Depression with anxiety: Status: Chronic (10) UTI (urinary tract infection): Status: Acute Plan Metabolic encephalopathy related to UTI Continue antibiotics Currently patient awake and alert Encephalopathy: Resolved No signs of sepsis Acute on chronic hypoxia This could be related to hypoventilation At baseline uses 2 to 3 L of oxygen at home COVID-negative DuoNeb treatment for COPD Diarrhea: C. difficile ruled out Hyperglycemia type 2 diabetes Hemoglobin A1c level to be checked Plantar keratosis, venous stasis dermatitis Unkept appearance Right leg nonpurulent cellulitis Ceftriaxone okay for now Chronic kidney disease at baseline creatinine acute decompensation Patient remains clinically well and cultures are negative to date we will plan to discharge him in next 48 hours Date broad-spectrum antibiotics no signs of DVT I do not suspect arterial ischemia at this point Troponin trending down No active chest pain Attestations Medical Necessity Statement*: Discharge within 48 hours Time Spent in Patient Care: 30 Coding Level of Care Code Acute Cover Making Machine Operator for [facility] Fwd Diagnoses Hypertension I10 Plantar porokeratosis, acquired L85.1 Hypoxia R09.02 Fever R50.9 Diarrhea R19.7 Diabetes mellitus, type II E11.42; Z79.4 Diabetes mellitus ferry terminal supervisor insulin use: with ferry terminal supervisor use Diabetes mellitus complication status: with neurologic complications Diabetes mellitus complication detail: with polyneuropathy Chronic kidney disease, stage III (moderate) N18.31 Chronic kidney disease stage 3 subtype: stage 3a (GFR 45-59) COPD (chronic obstructive pulmonary disease) J44.9 Depression with anxiety F41.8 UTI (urinary tract infection) N39.0
[2022-06-29] MEDS: vancomycin 1,500 MG/300 ML PIGGYBACK 150 MG IV (16:46)
[2022-06-29 17:25] LABS: Glucose Point of Care 249 mg/dL (70-110)
[2022-06-29 19:55] LABS: Glucose Point of Care 238 mg/dL (70-110)
[2022-06-29] MEDS: atorvastatin 40 mg Tablet PO (21:09)
[2022-06-29] MEDS: enoxaparin 40 mg/0.4 mL Syringe SUBCUT (21:10)
[2022-06-30] MEDS: piperacillin-tazobactam 3.375 GM in sodium chloride 0.9% (plus) 50 ML IV (03:59)
[2022-06-30 04:00] VITALS: BP 145/88; PULSE 84; RESP 19; TEMP 36.8; O2SAT 92
[2022-06-30 06:13] LABS: Glucose Point of Care 165 mg/dL (70-110)
[2022-06-30 07:13] LABS: Basophils % 0.5 %; Eosinophils # 0.6 10^3/uL (0.0-0.8); Eosinophils % 7.7 %; Hemoglobin 16.3 g/dL (11.7-16.6); Lymphocytes # 1.5 10^3/uL (0.8-4.8); Lymphocytes % 18.4 %; Mean Corpuscular HGB Conc 31.3 g/dL (30.0-36.0); Mean Corpuscular Hemoglobin 30.1 pg (28.0-34.0); Mean Corpuscular Volume 96.1 fl (80-94); Mean Platelet Volume 10.9 fL (7.4-10.4); Monocytes # 0.7 10^3/uL (0.2-0.9); Monocytes % 8.8 %; Neutrophils # 5.28 10^3/uL (1.8-7.7); Neutrophils % 63.9 %; Nucleated Red Blood Cells % 0 %; Platelet Count 148 10^3/cmm (130-400); Red Blood Count 5.41 10^6/uL (4.1-5.3); Red Cell Distribution Width 13.8 % (12.1-15.1); White Blood Count 8.3 10^3/uL (4.0-10.0)
[2022-06-30 07:41] LABS: Blood Urea Nitrogen 17 mg/dL (8-23); C Reactive Protein 85.9 mg/L (0.0-4.9); Calcium 8.4 mg/dL (8.5-10.5); Carbon Dioxide 28 mmol/L (22-29); Chloride 102 mmol/L (98-107); Glomerular Filtration Rate 66.6 mL/min (90-130); Glucose 183 mg/dL (65-115); Osmolality Calculated 292 mOsm/kg (285-295); Sodium 138 mmol/L (136-145); Vancomycin Trough 12.5 ug/mL (10-15)
[2022-06-30 07:44] LABS: Anion Gap 12.6 (5-19); Potassium 4.6 mmol/L (3.5-5.1)
[2022-06-30 08:00] VITALS: BP 125/78; PULSE 83; PULSE 84; RESP 18; TEMP 36.6; O2SAT 91; O2SAT 93
[2022-06-30] MEDS: fluconazole 100 mg Tablet 200 MG PO (09:33)
[2022-06-30] MEDS: pregabalin 50 mg Capsule PO (09:33)
[2022-06-30] MEDS: duloxetine 60 mg Capsule PO (09:33)
[2022-06-30] MEDS: lactobacillus 1 Tablet 1 TAB PO (09:34)
[2022-06-30] MEDS: vancomycin 1,500 MG/300 ML PIGGYBACK 150 MG IV (09:34)
--- NOTE | 2022-06-30 10:25 | PM.DCS ---
Discharge Providers Date of Admission: 06/28/22 15:03 Date of Discharge: June 30, 2022 Attending Provider at Admission: Mary Mejia MD Attending Provider at Discharge: Narayan Malhotra MD Primary Care Provider: Naheed Tesfaye Diagnoses at Discharge Discharge Diagnosis (1) Hypertension: Status: Chronic (2) Plantar porokeratosis, acquired: Status: Chronic (3) Hypoxia: Status: Acute (4) Fever: Status: Acute (5) Diarrhea: Status: Acute (6) Diabetes mellitus, type II: Status: Chronic Qualifiers: Diabetes mellitus residential insulin use: with watermelon inspector use Diabetes mellitus complication status: with neurologic complications Diabetes mellitus complication detail: with polyneuropathy Qualified Code(s): E11.42 - Type 2 diabetes mellitus with diabetic polyneuropathy; Z79.4 - alf (current) use of insulin (7) Chronic kidney disease, stage III (moderate): Status: Chronic Qualifiers: Chronic kidney disease stage 3 subtype: stage 3a (GFR 45-59) Qualified Code(s): N18.31 - Chronic kidney disease, stage 3a (8) COPD (chronic obstructive pulmonary disease): Status: Chronic (9) Depression with anxiety: Status: Chronic (10) UTI (urinary tract infection): Status: Acute Reason for Visit Reason for Visit: GENERAL WEAKNESS/ BOWEL INCONTINENCE Hospital Course Hospital Course 67-year-old male, carries history of oxygen dependent COPD, noncompliant with oxygen, at home supposed to use 2 L who presented with chief complaint generalized weakness. He is mostly bedbound because of his comorbid conditions and diabetes related neuropathy but able to carry his ADL with minimal assistance when needed, has history of penilectomy, urinary diversion and scrotum, he was diagnosed with hypoxia, right leg nonpurulent cellulitis and UTI. He remained afebrile no severe leukocytosis no signs of sepsis or bacteremia, patient requiring 2 to 3 L of oxygen during hospitalization, requested home O2 eval, will discharge him on 2 L of oxygen, Augmentin and topical bacitracin. at the bedside. He will be discharged home. During hospitalization he received broad-spectrum antibiotics vancomycin and Zosyn. No signs of DVT, CT abdomen pelvis unremarkable Physical Exam Narrative: Patient is awake and alert Nonfocal neuro exam Right leg nonpurulent cellulitis Wake and alert, no signs of confusion Nonfocal neuro exam Currently saturating well on 2 L nasal cannula Abdomen soft, distended, S1, S2 Discharge Data Studies Completed and Pending Completed Studies During Hospitalization Category Date Time Status CT abdomen pelvis w con* [id number] Stat Cat Scan 06/28/22 10:28 Completed XR chest 1V portable [id number] Stat Exams 06/28/22 10:15 [place] [id number] Routine Ultrasound 06/28/22 18:32 Completed Pending at discharge Category Date Time Status Blood Culture Stat Lab 06/28/22 10:43 Results Urine Culture Stat Lab 06/29/22 12:21 Uncollected Radiology Impressions Chest X-Ray 06/28/22 10:15 IMPRESSION: No acute findings. Abdomen/Pelvis CT 06/28/22 10:28 IMPRESSION: 1. Hepatomegaly without focal hepatic abnormality. 2. Otherwise No acute findings. Laboratory Results WBC 8.3 10^3/uL (4.0-10.0) 06/30/22 06:59 RBC 5.41 10^6/uL (4.1-5.3) H 06/30/22 06:59 Hgb 16.3 g/dL (11.7-16.6) 06/30/22 06:59 Hct 52.0 % (42.0-52.0) 06/30/22 06:59 MCV 96.1 fl (80-94) H 06/30/22 06:59 MCH 30.1 pg (28.0-34.0) 06/30/22 06:59 MCHC 31.3 g/dL (30.0-36.0) 06/30/22 06:59 RDW 13.8 % (12.1-15.1) 06/30/22 06:59 Plt Count 148 10^3/cmm (130-400) 06/30/22 06:59 MPV 10.9 fL (7.4-10.4) H 06/30/22 06:59 Neut % (Auto) 63.9 % 06/30/22 06:59 Lymph % (Auto) 18.4 % 06/30/22 06:59 [place] % (Auto) 8.8 % 06/30/22 06:59 Eos % (Auto) 7.7 % 06/30/22 06:59 Baso % (Auto) 0.5 % 06/30/22 06:59 Neut # (Auto) 5.28 10^3/uL (1.8-7.7) 06/30/22 06:59 Lymph # (Auto) 1.5 10^3/uL (0.8-4.8) 06/30/22 06:59 [place] # (Auto) 0.7 10^3/uL (0.2-0.9) 06/30/22 06:59 Eos # (Auto) 0.6 10^3/uL (0.0-0.8) 06/30/22 06:59 Baso # (Auto) 0.0 10^3/uL (0.0-0.1) 06/30/22 06:59 Nucleated RBC % (auto) 0 % 06/30/22 06:59 Nucleated RBCs # 0.0 /100WBC 06/30/22 06:59 ESR 63 mm/hr (0-10) H 06/28/22 10:19 D-Dimer 0.78 ug/mIFEU (0-0.59) H 06/29/22 04:45 Specimen Type Arterial 06/29/22 04:54 Sample Site Radial, right 06/29/22 04:54 ABG pH 7.36 (7.35-7.45) 06/29/22 04:54 ABG pCO2 47.7 mmHg (35-45) H 06/29/22 04:54 ABG pO2 58.2 mmHg (80.0-100.0) L 06/29/22 04:54 ABG HCO3 26.9 mmol/L (22-26) H 06/29/22 04:54 ABG Base Excess 0.7 mmol/L (-2.0-2.0) 06/29/22 04:54 Praful Test Pos 06/29/22 04:54 Hematocrit 52.0 % (42-52) 06/29/22 04:54 O2 Delivery Device Nc 06/29/22 04:54 O2 Liters/Min 5.0 % 06/29/22 04:54 School Psychological Examiner ID [place] 06/29/22 04:54 Sodium 138 mmol/L (136-145) 06/30/22 06:59 Potassium 4.6 mmol/L (3.5-5.1) 06/30/22 06:59 Chloride 102 mmol/L (98-107) 06/30/22 06:59 Carbon Dioxide 28 mmol/L (22-29) 06/30/22 06:59 Anion Gap 12.6 (5-19) 06/30/22 06:59 BUN 17 mg/dL (8-23) 06/30/22 06:59 Creatinine 1.1 mg/dL (0.7-1.2) 06/30/22 06:59 GFR Calculation 66.6 mL/min (90-130) L 06/30/22 06:59 Glucose 183 mg/dL (65-115) H 06/30/22 06:59 POC Glucose 165 mg/dL (70-110) H 06/30/22 06:02 Calculated Osmolality 292 mOsm/kg (285-295) 06/30/22 06:59 Calcium 8.4 mg/dL (8.5-10.5) L 06/30/22 06:59 Magnesium 1.9 mg/dL (1.7-2.3) 06/29/22 04:45 Total Bilirubin 0.5 mg/dL (0.15-1.2) 06/29/22 04:45 AST 12 U/L (0-40) 06/29/22 04:45 ALT 10 U/L (0-41) 06/29/22 04:45 Alkaline Phosphatase 132 U/L (40-130) H 06/29/22 04:45 Troponin T Baseline 18 ng/L (0-15) H 06/28/22 14:02 Troponin T 120 Minute 17.71 ng/L (0-15) H 06/28/22 16:22 Delta Troponin T -0.29 ABS# (0-10) L 06/28/22 16:22 Troponin T Hi Sens 6Hr 16.28 ng/L (0-15) H 06/28/22 20:25 Troponin T Hi Sens 6Hr Delta -1.72 ng/L (0-12) L 06/28/22 20:25 C-Reactive Protein 85.9 mg/L (0.0-4.9) H 06/30/22 06:59 C-Reactive Protein Cancelled 06/30/22 06:59 NT-Pro-B Natriuret Pep 331 pg/mL (0-125) H 06/28/22 10:19 Total Protein 7.0 g/dL (6.6-8.7) 06/29/22 04:45 Albumin 3.4 g/dL (3.5-5.2) L 06/29/22 04:45 Globulin 3.6 g/dL (1.3-4.6) 06/29/22 04:45 Procalcitonin 0.42 ng/mL (0-0.5) 06/28/22 16:22 Urine Color Yellow (Yellow) 06/28/22 19:08 Urine Appearance Sl hazy (CLEAR) 06/28/22 19:08 Urine pH 5 (5-7) 06/28/22 19:08 Ur Specific [place] 1.015 (1.005-1.030) 06/28/22 19:08 Urine Protein 3+ (Negative) H 06/28/22 19:08 Urine Glucose (UA) 4+ (Normal) H 06/28/22 19:08 Urine Ketones Negative (Negative) 06/28/22 19:08 Urine Blood 3+ (Negative) H 06/28/22 19:08 Urine Nitrate Negative (Negative) 06/28/22 19:08 Urine Bilirubin Neg (Negative) 06/28/22 19:08 Urine Urobilinogen 1 mg/dL (Negative) H 06/28/22 19:08 Ur Leukocyte Esterase 2+ (Negative) H 06/28/22 19:08 Urine RBC 5-10 /hpf (0-2) H 06/28/22 19:08 Urine WBC >100 /hpf (0-5) H 06/28/22 19:08 Ur Squamous Epith Cells 10-15 /hpf (0-5) H 06/28/22 19:08 Amorphous Sediment Trace /hpf 06/28/22 19:08 Urine Bacteria 1+ /hpf (NONE) H 06/28/22 19:08 Vancomycin Trough 12.5 ug/mL (10-15) 06/30/22 06:59 Coronavirus 229E (PCR) Not detected (NOT DETECT) 06/28/22 17:10 SARS-CoV-2 (PCR) Not detected (NOT DETECT) 06/28/22 17:10 Vitals Last Vital Signs Temp 97.8 F 06/30/22 08:00 Pulse 84 06/30/22 08:00 Resp 18 06/30/22 08:00 BP 125/78 06/30/22 08:00 Pulse Ox 93 06/30/22 08:00 O2 Del Method 06/30/22 08:00 O2 Flow Rate 4 06/30/22 08:00 Discharge Plan Discharge Patient Disposition: Home Condition: Stable Prescriptions: New amoxicillin-pot clavulanate 875-125 mg tablet 1 tab PO BID Qty: 20 0RF bacitracin zinc-polymyxin B [Wal-Sporin] 500-10,000 unit/gram ointment 1 applic topical BID Qty: 28.4 0RF Continued insulin aspart U-100 [Novolog Flexpen U-100 Insulin] 100 unit/mL (3 mL) insulin pen See Rx Instructions .ROUTE .COMPLEX Rx Instructions: 3 - 5 unit subcutaneously per sliding scale Lantus U-100 Insulin 100 unit/mL solution 60 unit SUBCUT DAILY clotrimazole 1 % cream 1 applic TOPICAL BID 90 Days Qty: 90 0RF atorvastatin 40 mg Tablet 40 mg PO BEDTIME amlodipine 5 mg tablet 5 mg PO DAILY hydroxyzine HCl 25 mg tablet 25 mg PO TID PRN (Reason: Anxiety) duloxetine 60 mg Capsule,Delayed Release(Dr/Ec) 60 mg PO DAILY pregabalin 50 mg Capsule 50 mg PO TID Farxiga 10 mg Tablet 10 mg PO DAILY Advair Diskus 250-50 mcg/dose Blister With Device 1 inh INHALATION BID albuterol sulfate 90 mcg/actuation Hfa Aerosol Inhaler 2 puff INHALATION 6XD PRN (Reason: Shortness Of Breath) Discharge Orders: Discharge Order (Routine); Ordered 06/30/22 Ordered By: Narayan Malhotra Other Ambulatory Orders: DME: Oxygen (Order) Location: None Selected Ordered By: Narayan Malhotra Referrals: Naheed Tesfaye FNP [Primary Care Provider] - 07/07/22 9:30 am Discharge Diet: Usual diet Discharge Activity: Increase activity as tolerated Patient Instructions: Opioid Safety Discharge Attestations Time Spent in Discharge Care*: less than 30 min Quality Metrics Clinical Quality Measures [ No reported AMI, CVA or VTE this stay] Coding Level of Care Code Acute Chg FW DC note Diagnoses Hypertension I10 Plantar porokeratosis, acquired L85.1 Hypoxia R09.02 Fever R50.9 Diarrhea R19.7 Diabetes mellitus, type II E11.42; Z79.4 Diabetes mellitus residential insulin use: with residential use Diabetes mellitus complication status: with neurologic complications Diabetes mellitus complication detail: with polyneuropathy Chronic kidney disease, stage III (moderate) N18.31 Chronic kidney disease stage 3 subtype: stage 3a (GFR 45-59) COPD (chronic obstructive pulmonary disease) J44.9 Depression with anxiety F41.8 UTI (urinary tract infection) N39.0
[2022-06-30 11:15] VITALS: O2SAT 80; O2SAT 92
[2022-06-30 11:17] LABS: Glucose Point of Care 241 mg/dL (70-110)
[2022-06-30 12:00] VITALS: BP 147/87; PULSE 89; RESP 16; TEMP 36.7; O2SAT 91
[2022-06-30] MEDS: insulin lispro 100 unit/1 mL SUBCUT (14:57)
[2022-06-30 15:32] VITALS: BP 147/87; PULSE 89; RESP 16; TEMP 36.7; O2SAT 91
== END 2022-06-30 14:50 | disposition home or self-care (01) | DRG 689 ==
LOC: ER 16:39 → MEDSURG 17:41
PROVIDERS: Admitting Provider Hospitalist; Emergency Provider Family Medicine; PCP Nurse Practitioner Family; Visit Provider Internal Medicine
DX: N39.0 Urinary tract infection, site not specified (principal); G93.41 Metabolic encephalopathy; L03.115 Cellulitis of right lower limb; E11.42 Type 2 diabetes mellitus with diabetic polyneuropathy; E11.51 Type 2 diabetes mellitus with diabetic peripheral angiopathy without gangrene; E11.65 Type 2 diabetes mellitus with hyperglycemia; E11.22 Type 2 diabetes mellitus with diabetic chronic kidney disease; I12.9 Hypertensive chronic kidney disease with stage 1 through stage 4 chronic kidney disease, or unspecified chronic kidney disease; N18.31 Chronic kidney disease, stage 3a; J44.9 Chronic obstructive pulmonary disease, unspecified; F41.8 Other specified anxiety disorders; E78.5 Hyperlipidemia, unspecified; F17.210 Nicotine dependence, cigarettes, uncomplicated; Z85.45 Personal history of malignant neoplasm of unspecified male genital organ; Q82.8 Other specified congenital malformations of skin; Z90.79 Acquired absence of other genital organ(s); B35.6 Tinea cruris; Z79.51 Long term (current) use of inhaled steroids; Z79.4 Long term (current) use of insulin; Z74.01 Bed confinement status; Z91.19 Patient's noncompliance with other medical treatment and regimen
CPT/HCPCS: 36415; 36416; 36600; 71045; 74177; 80048; 80053; 80202; 81001; 82274; 82803; 82962; 83630; 83735; 83880; 84145; 84484; 85025; 85378; 85651; 86140; 87040; 87493; 87506; 87635; 93005; 93970; 94640; 94760; 96372; 99285; J1650; J1815; J2543; J3370; J7030; Q9967

== ENCOUNTER → 2022-09-27 11:06 | Outpatient (BNVA) | payer MEDICARE, SELFPAY | PROVIDERS: PCP Nurse Practitioner Family; Visit Provider Podiatrist Foot & Ankle Surgery | DX: E11.42 Type 2 diabetes mellitus with diabetic polyneuropathy (principal); L85.1 Acquired keratosis [keratoderma] palmaris et plantaris; L60.2 Onychogryphosis; Z79.84 Long term (current) use of oral hypoglycemic drugs; L28.0 Lichen simplex chronicus | CPT/HCPCS: 11721; 17110 ==

== ENCOUNTER 2023-01-12 09:27 | Emergency (ER) | payer MEDICARE, SELFPAY ==
[2023-01-12 09:33] VITALS: BP 170/85; PULSE 127; RESP 33; TEMP 39.7; O2SAT 98; BMI 40.6
--- NOTE | 2023-01-12 09:44 | XRR_ITS ---
PROCEDURE INFORMATION: Exam: XR Chest Exam date and time: 01/12/2023 9:56 AM Age: 67 years old Clinical indication: Shortness of breath; Additional info: SOB, AMS TECHNIQUE: Imaging protocol: Radiologic exam of the chest. Views: 1 view. COMPARISON: CR XR chest 1V portable [id number] 06/28/2022 10:21 AM FINDINGS: Lungs: Unremarkable. No consolidation. Pleural spaces: Unremarkable. No pleural effusion. No pneumothorax. Heart/Mediastinum: Unremarkable. No cardiomegaly. Bones/joints: Unremarkable. XR/XR chest 1V portable [id number] IMPRESSION: No acute findings.
--- NOTE | 2023-01-12 09:52 | CT_ITS ---
WS: [id number] CT ABDOMEN AND PELVIS WITH CONTRAST HISTORY: significant scrotal/perineal redness/infection TECHNIQUE: Imaging performed of the abdomen and pelvis with IV contrast. Single phase imaging of the abdomen. Coronal and sagittal reformats are submitted. All CT scans at [facility] use at [address] one of these dose optimization techniques: automated exposure control; mA and/or kV adjustment per patient size (includes targeted exams where dose is matched to clinical indication); or iterative re construction. IV CONTRAST: Omnipaque 350; 100 mL IV. Oral contrast: No DLP: 1711.03 mGy.cm COMPARISON: 06/28/2022 Lower thorax: Lung bases are clear. Heart is normal size. No hiatal hernia. Liver/biliary system: Normal size with no intrahepatic dilatation. Gallbladder: Normal. No gallstones or wall thickening. No pericholecystic fluid. Pancreas: Mild atrophy. No bile duct dilatation or pancreatic duct dilatation. Spleen: Normal size spleen with several granulomata. Adrenal glands: Normal. Right kidney: Mild perinephric stranding. Lower pole motion artifact. No obstruction. Left kidney: Mild perinephric stranding. No obstruction. Aorta: Mild atherosclerosis with no aneurysm. Lymphadenopathy: None. Free fluid: None. GI tract: Normal stomach. No small bowel obstruction. Normal appendix. Mild constipation. Mild sigmoi d diverticulosis without acute diverticulitis. Abdominal wall: Unremarkable abdominal wall. No hernia. Pelvis: Minimally distended urinary bladder. No focal wall thickening or enhancement. No free fluid. Small inguinal lymph nodes are identified. These lymph nodes are hyperemic suggesting these are react shari. The largest measures 16 mm on the RIGHT. There is very mild scrotal wall thickening extending into the perineum. There are a few small foci of air within the perineum. This may be entrapped air between the patient's body and the scrotum. With history of perineal infection tiny foci of air may suggest early necrotizing fasciitis. Typically the re is more air than this present for necrotizing fasciitis. Bones: Mild subchondral cystic changes involving the femoral heads may be early osteonecrosis. CT/CT abdomen pelvis w con* [id number] IMPRESSION: 1. Mild scrotal wall and perineum thickening. No focal mass or abnormal enhanc ement. There are a few small foci of air along the perineum. This is probably r elated to air trapped between the scrotal wall and body. Necrotizing fasciitis is not completely excluded. No abscess. 2. Mildly reactive inguinal lymph nodes measuring up to 16 mm in diameter. 3. No acute abdominal or pelvic abnormalities otherwise.
--- NOTE | 2023-01-12 10:01 | W.ED.AMS ---
HPI - Altered Mental Status General: Chief Complaint: Altered Mental Status Stated Complaint: AMS Time Seen by Provider: 01/12/23 09:52 Source: EMS Mode of arrival: EMS Limitations: altered mental status History of Present Illness: Patient is a 67-year-old male who arrives to the ED today via EMS. According to EMS report the of patient found him in his room covered in urine, feces, and vomit and was severely altered. I do not have any further history on patient at this time. Upon my initial examination patient is significantly ill. He is able to tell me his name and date of and that is about it. He is significantly tachycardic and febrile. He is on 12 L of oxygen via nonrebreather. From what I can gather on patient's history he is a diabetic. On initial physical exam he appears very poorly taking care of. 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 He has had a penis amputation and appears to have some type of urinary diversion. Will try and obtain better history from daughter when she arrives. [facility] ED PFSH: Medical History Body mass index [BMI] 36.0-36.9, adult Cellulitis of right lower extremity Chronic kidney disease, stage III (moderate) COPD (chronic obstructive pulmonary disease) Depression with anxiety Diabetes mellitus, type II Diabetic peripheral neuropathy Diarrhea Fever History of renal dialysis Required temporary dialysis after a severe bout of influenza Hyperlipidemia Hypertension Hypoxia Nicotine dependence, cigarettes, with other nicotine-induced disorders Penile cancer Peripheral vascular disease Plantar porokeratosis, acquired Tinea cruris UTI (urinary tract infection) Surgical History History of incision and drainage History of penectomy Prior to surgical removal due to cancer had 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 Marrufo as he was attending to a trauma/critical patient. He will assume care of patient at this time. ES Vital Signs: Vital signs: Vital Signs Temperature 103.4 F H 01/12/23 09:33 Pulse Rate 127 H 01/12/23 09:33 Respiratory Rate 33 H 01/12/23 09:33 Blood Pressure 170/85 01/12/23 09:33 Pulse Oximetry 96 01/12/23 10:18 Oxygen Delivery Me thod 01/12/23 10:18 Oxygen Flow Rate 7 01/12/23 10:18 MDM - Altered Mental Status Medical Decision Making Care transferred to Dr. Marrufo ES Lab Data 01/12/23 08:49 01/12/23 08:49 Laboratory Results WBC 18.5 10^3/uL (4.0-10.0) H 01/12/23 08:49 RBC 5.80 10^6/uL (4.1-5.3) H 01/12/23 08:49 Hgb 17.8 g/dL (11.7-16.6) H 01/12/23 08:49 Hct 55.0 % (42.0-52.0) H 01/12/23 08:49 MCV 94.8 fl (80-94) H 01/12/23 08:49 MCH 30.7 pg (28.0-34.0) 01/12/23 08:49 MCHC 32.4 g/dL (30.0-36.0) 01/12/23 08:49 RDW 15.0 % (12.1-15.1) 01/12/23 08:49 Plt Count 141 10^3/cmm (130-400) 01/12/23 08:49 MPV 11.7 fL (7.4-10.4) H 01/12/23 08:49 Neut % (Auto) 90.3 % 01/12/23 08:49 Lymph % (Auto) 4.2 % 01/12/23 08:49 [place] % (Auto) 4.1 % 01/12/23 08:49 Eos % (Auto) 0.2 % 01/12/23 08:49 Baso % (Auto) 0.4 % 01/12/23 08:49 Neut # (Auto) 16.69 10^3/uL (1.8-7.7) H 01/12/23 08:49 Lymph # (Auto) 0.8 10^3/uL (0.8-4.8) 01/12/23 08:49 [place] # (Auto) 0.8 10^3/uL (0.2-0.9) 01/12/23 08:49 Eos # (Auto) 0.0 10^3/uL (0.0-0.8) 01/12/23 08:49 Baso # (Auto) 0.1 10^3/uL (0.0-0.1) 01/12/23 08:49 Nucleated RBC % (auto) 0 % 01/12/23 08:49 Nucleated RBCs # 0.0 /100WBC 01/12/23 08:49 ESR 39 mm/hr (0-10) H 01/12/23 08:49 Specimen Type Arterial 01/12/23 09:59 Sample Site Radial, right 01/12/23 09:59 ABG pH 7.33 (7.35-7.45) L 01/12/23 09:59 ABG pCO2 54.6 mmHg (35-45) H 01/12/23 09:59 ABG pO2 53.0 mmHg (80.0-100.0) L 01/12/23 09:59 ABG HCO3 28.6 mmol/L (22-26) H 01/12/23 09:59 ABG O2 Saturation 86.8 01/12/23 09:59 ABG Base Excess 1.1 mmol/L (-2.0-2.0) 01/12/23 09:59 Praful Test Pos 01/12/23 09:59 A-a O2 Gradient 3.9 mmHg (5-10) L 01/12/23 09:59 Hematocrit 54.7 % (42-52) H 01/12/23 09:59 Hgb O2 Saturation 83.6 % (95-100) L 01/12/23 09:59 Carboxyhemoglobin 3.3 %THgb (0.4-20.1) 01/12/23 09:59 Methemoglobin 0.5 % (0.4-1.5) 01/12/23 09:59 Total Hemoglobin 17.9 g/dL (14-18) 01/12/23 09:59 Sodium 139.0 mmol/L (131-143) 01/12/23 09:59 Potassium 4.8 mmol/L (3.5-5.0) 01/12/23 09:59 Glucose 252.0 mg/dL (70-115) H 01/12/23 09:59 Ionized Calcium 1.3 mmol/L (1.1-1.4) 01/12/23 09:59 O2 Delivery Device Nc 01/12/23 09:59 O2 Liters/Min 6.0 % 01/12/23 09:59 Three Dimensional Art Instructor ID [place] 01/12/23 09:59 Sodium 136 mmol/L (136-145) 01/12/23 08:49 Potassium 4.8 mmol/L (3.5-5.1) 01/12/23 08:49 Chloride 99 mmol/L (98-107) 01/12/23 08:49 Carbon Dioxide 25 mmol/L (22-29) 01/12/23 08:49 Anion Gap 16.8 (5-19) 01/12/23 08:49 BUN 19 mg/dL (8-23) 01/12/23 08:49 Creatinine 1.3 mg/dL (0.7-1.2) H 01/12/23 08:49 GFR Calculation 54.9 mL/min (90-130) L 01/12/23 08:49 Glucose 240 mg/dL (65-115) H 01/12/23 08:49 Calculated Osmolality 292 mOsm/kg (285-295) 01/12/23 08:49 Lactic Acid 2.1 mmol/L (0.5-2.2) 01/12/23 09:58 Calcium 9.1 mg/dL (8.5-10.5) 01/12/23 08:49 Total Bilirubin 0.6 mg/dL (0.15-1.2) 01/12/23 08:49 AST 18 U/L (0-40) 01/12/23 08:49 ALT 11 U/L (0-41) 01/12/23 08:49 Alkaline Phosphatase 149 U/L (40-130) H 01/12/23 08:49 C-Reactive Protein 46.1 mg/L (0.0-4.9) H 01/12/23 08:49 Total Protein 7.3 g/dL (6.6-8.7) 01/12/23 08:49 Albumin 3.3 g/dL (3.5-5.2) L 01/12/23 08:49 Globulin 4.0 g/dL (1.3-4.6) 01/12/23 08:49 Discharge Plan Discharge Condition: Stable Prescriptions: No Action insulin aspart U-100 [Novolog FlexPen U-100 Insulin] 100 unit/mL (3 mL) insulin pen See Rx Instructions .ROUTE .COMPLEX Rx Instructions: 3 - 5 unit subcutaneously on sliding scale tid (max 12 units per day) pregabalin 150 mg capsule 150 mg PO TID Lantus Solostar U-100 Insulin 100 unit/mL (3 mL) insulin pen 60 unit SUBCUT DAILY levothyroxine 50 mcg tablet 50 mcg PO DAILY atorvastatin 40 mg Tablet 40 mg PO BEDTIME amlodipine 5 mg tablet 5 mg PO DAILY hydroxyzine HCl 25 mg tablet 25 mg PO TID PRN (Reason: Anxiety) duloxetine 60 mg Capsule,Delayed Release(Dr/Ec) 60 mg PO DAILY Farxiga 10 mg Tablet 10 mg PO DAILY albuterol sulfate 90 mcg/actuation HFA aerosol inhaler 2 inh inhalation Q8H PRN (Reason: shortness of breath or wheezing) Qty: 8.5 3RF fluticasone propion-salmeterol [Advair Diskus] 250-50 mcg/dose blister with device 1 inh inhalation BID Qty: 60 3RF Referrals: Naheed Tesfaye MICROFILM TECHNICIAN [Primary Care Provider] - Coding Level of Care Code ED Production Stage Manager for [employer]
[2023-01-12 10:10] LABS: ABG PCO2 54.6 mmHg (35-45); ABG PH Result 7.33 (7.35-7.45); Alveolar-Arterial Oxygen Gradi 3.9 mmHg (5-10); Arterial Blood Gas Hematocrit 54.7 % (42-52); Base Excess ABG 1.1 mmol/L (-2.0-2.0); Blood Gas Allen Test Pos; Blood Gas Operator Identificat WALCI; Blood Gas Sample Site Radial, right; Blood Gas Sample Type Arterial; Carboxyhemoglobin 3.3 %THgb (0.4-20.1); HCO3 ABG 28.6 mmol/L (22-26); HGB O2 Sat 83.6 % (95-100); Ionized Calcium Level - ABG 1.3 mmol/L (1.1-1.4); Methemoglobin 0.5 % (0.4-1.5); Oxygen Device NC; Oxygen Saturation ABG 86.8; Potassium Level - ABG 4.8 mmol/L (3.5-5.0); Total Hemoglobin 17.9 g/dL (14-18)
[2023-01-12] MEDS: piperacillin-tazobactam 3.375 GM in sodium chloride 0.9% (plus) 50 ML IV (10:12)
[2023-01-12] MEDS: sodium chloride 0.9% 1,000 ML 999 ML IV (10:12)
--- NOTE | 2023-01-12 10:12 | ED_ITS ---
HPI - Altered Mental Status General: Chief Complaint: Altered Mental Status Stated Complaint: AMS Time Seen by Provider: 01/12/23 09:52 Source: family and EMS Mode of arrival: EMS Limitations: altered mental status History of Present Illness: This patient was transported from home by EMS. Family provide all of his history. Apparently he has a history of diabetes, sepsis, and reports he was in his normal state of health yesterday and ate and drank normally. She states that she woke this morning and found him in bed covered in vomit. She states that he was not responding normally to her at that time. She noted he had a fever and had increasing rash of his right leg and called EMS. Patient has a long history of recurrent sepsis. 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. 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 MD complaint: altered mental status Review of Systems Const: Reports: fever(s) ENMT: Denies: throat pain or odynophagia Card: Denies: chest pain or palpitations Resp: Denies: dyspnea, productive cough or non-productive cough GI: Reports: vomiting; Denies: abdominal pain Musc: Reports: extremity pain; Denies: neck pain or back pain Skin/Breast: Reports: rash and erythema Neuro: Denies: headache(s) PFS ED PFSH: Medical History Body mass index [BMI] 36.0-36.9, adult Cellulitis of right lower extremity Chronic kidney disease, stage III (moderate) COPD (chronic obstructive pulmonary disease) Depression with anxiety Diabetes mellitus, type II Diabetic peripheral neuropathy Diarrhea Fever History of renal dialysis Required temporary dialysis after a severe bout of influenza Hyperlipidemia Hypertension Hypoxia Nicotine dependence, cigarettes, with other nicotine-induced disorders Penile cancer Peripheral vascular disease Plantar porokeratosis, acquired Tinea cruris UTI (urinary tract infection) Surgical History History of incision and drainage History of penectomy Prior to surgical removal due to cancer had had 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 Status post endovenous radiofrequency ablation of saphenous vein Family History Mother Diabetes Lung disease CAD (coronary artery disease) Social History Smoking and tobacco status: current every day smoker cigarettes Packs smoked per day: 1 Years cigarettes smoked: 51 Quit status (tobacco): not considering quitting Alcohol intake: former Household members: spouse Physical Exam Narrative: Patient's a obese gentleman who is making grunting respirations. He has some periorbital swelling on the left side of his face. No palpable step-offs. Const: NUTRITIONAL APPEARANCE: overweight ORIENTATION/CONSCIOUSNESS: Yes confused Eye: COMMON NORMALS: Equal, round and reactive pupils present and conjunctivae normal CONJUNCTIVA: Yes conjunctivae normal PUPIL: Yes Equal, round and reactive pupils present Neck/C-Spine: COMMON NORMALS: full ROM and supple Chest: COMMONS NORMALS: normal inspection of the chest Resp: EFFORT & INSPECTION: Yes labored AUSCULTATION: diminished lung sounds Cardio: COMMON NORMALS: No murmurs present (Cardio) and Peripheral pulses 2+ throughout RATE: tachycardic PERIPHERAL PULSES: Peripheral pulses 2+ throughout GI: COMMON NORMALS: Soft to palpation and non-tender INSPECTION: Yes abdominal distension PALPATION: Yes Soft to palpation : OTHER: Penis is surgically absent. He has intact scrotum with a urinary conduit inferior to the scrotum at the perineum. The skin of the perineal area is erythematous. No palpable subcutaneous emphysema noted. Back/Pelvis: COMMON NORMALS: thoracic and lumbar spine normal to inspection Extremity: OTHER: Lower extremities are notable for significant hypertrophy of the skin of both feet with significant thickening and fissuring of the skin of the soles of the feet. Proximally particularly on the right leg he has confluent erythema which extends from the foot proximal to mid to upper thigh. There is irregular border without any satellite lesions. Neuro: SENSORIUM/ORIENTATION: Yes somnolent Course Reevaluation(s): Reevaluation #1: Initial laboratories were reviewed. He is not displaying significant CO2 retention but still requiring significant supplemental oxygen. He tends to be a mouth breather and so putting him on a open facemask to improve his oxygenation. He does not appear to have a significant work of breathing right now or tiring out and in fact his alertness level seems to have improved slightly since initial presentation. We will go ahead and do a head CT as well to ensure that there is no other contributing factors to his current presentation. Time: 11:04 Reevaluation #2: Reviewed CT scan report to just return. His head CT is reassuring. His abdominal pelvic CT does have some mention of potential gas within the soft tissues of the perineal area. While this may be due to his prior urinary conduit rerouting certainly raises the specter of possible very early necrotizing fasciitis. Given this finding I think we should probably plan on transferring this patient to a tertiary care center that can provide more broad spectrum treatment of for this patient's condition. We will also discussed with respiratory about just switching over to high flow nasal cannula. Time: 12:09 Reevaluation #3: The patient was excepted at [facility] due to staffing issues at [facility]. I informed patient of the plans for transfer and she was in agreement. We will plan for urgent transport via air ambulance if possible given time and distance and the current patient's condition. Patient is currently continue his fluid resuscitation is received IV antibiotics. Time: 12:38 Consultations: Consultation #1: Discussed with [facility] game farm helper as well as supporting surgical subspecialties who agreed to accept the patient in transfer. Time: 12:37 Vital Signs: Vital signs: Vital Signs Temperature 103.4 F H 01/12/23 09:33 Pulse Rate 115 H 01/12/23 12:29 Respiratory Rate 18 01/12/23 12:29 Blood Pressure 174/96 01/12/23 11:58 Pulse Oximetry 93 01/12/23 12:29 Oxygen Delivery Me thod 01/12/23 10:18 Oxygen Flow Rate 40 01/12/23 12:29 Fraction of Inspir ed Oxygen 40 01/12/23 12:29 MDM - Altered Mental Status Medical Decision Making This patient with a longstanding history of diabetes and recurrent lower extremity cellulitis presented to our emergency department with acute onset of high fevers, marked in an increasing redness to his right lower extremity as well as altered mental status. His evaluation in the emergency department revealed a patient who was tachycardic febrile and had decreased mental responsiveness and alertness. Work-up to ascertain potential causes of his current illness in addition to ongoing resuscitation was begun. He received IV fluid resuscitation, IV antibiotics empirically, imaging studies. Imaging did reveal potential for possible early necrotizing fasciitis but not definitive. He did show appropriate mild acidosis with reasonable blood gases with supplemental oxygen. It was not felt that he required emergent intubation given his current clinical picture but that certainly could may be necessary in the future. Because of the multifaceted nature of his current illness and the lack of continuous urology support at this facility it was felt he be best served by transferring to a larger facility of more comprehensive care. This was undertaken and he was transferred to [facility]. Condition remains critical but improved. Lab Data I reviewed the patient's lab results. 01/12/23 08:49 01/12/23 08:49 Radiology Impressions Chest X-Ray 01/12/23 09:44 IMPRESSION: No acute findings. Abdomen/Pelvis CT 01/12/23 09:52 IMPRESSION: 1. Mild scrotal wall and perineum thickening. No focal mass or abnormal enhancement. There are a few small foci of air along the perineum. This is probably related to air trapped between the scrotal wall and body. Necrotizing fasciitis is not completely excluded. No abscess. 2. Mildly reactive inguinal lymph nodes measuring up to 16 mm in diameter. 3. No acute abdominal or pelvic abnormalities otherwise. Head CT 01/12/23 11:04 IMPRESSION: 1. No acute intracranial hemorrhage or edema. 2. Mild atrophy and small vessel ischemic disease. Laboratory Results WBC 18.5 10^3/uL (4.0-10.0) H 01/12/23 08:49 RBC 5.80 10^6/uL (4.1-5.3) H 01/12/23 08:49 Hgb 17.8 g/dL (11.7-16.6) H 01/12/23 08:49 Hct 55.0 % (42.0-52.0) H 01/12/23 08:49 MCV 94.8 fl (80-94) H 01/12/23 08:49 MCH 30.7 pg (28.0-34.0) 01/12/23 08:49 MCHC 32.4 g/dL (30.0-36.0) 01/12/23 08:49 RDW 15.0 % (12.1-15.1) 01/12/23 08:49 Plt Count 141 10^3/cmm (130-400) 01/12/23 08:49 MPV 11.7 fL (7.4-10.4) H 01/12/23 08:49 Neut % (Auto) 90.3 % 01/12/23 08:49 Lymph % (Auto) 4.2 % 01/12/23 08:49 Huron % (Auto) 4.1 % 01/12/23 08:49 Eos % (Auto) 0.2 % 01/12/23 08:49 Baso % (Auto) 0.4 % 01/12/23 08:49 Neut # (Auto) 16.69 10^3/uL (1.8-7.7) H 01/12/23 08:49 Lymph # (Auto) 0.8 10^3/uL (0.8-4.8) 01/12/23 08:49 [place]on # (Auto) 0.8 10^3/uL (0.2-0.9) 01/12/23 08:49 Eos # (Auto) 0.0 10^3/uL (0.0-0.8) 01/12/23 08:49 Baso # (Auto) 0.1 10^3/uL (0.0-0.1) 01/12/23 08:49 Nucleated RBC % (auto) 0 % 01/12/23 08:49 Nucleated RBCs # 0.0 /100WBC 01/12/23 08:49 ESR 39 mm/hr (0-10) H 01/12/23 08:49 Specimen Type Arterial 01/12/23 09:59 Sample Site Radial, right 01/12/23 09:59 ABG pH 7.33 (7.35-7.45) L 01/12/23 09:59 ABG pCO2 54.6 mmHg (35-45) H 01/12/23 09:59 ABG pO2 53.0 mmHg (80.0-100.0) L 01/12/23 09:59 ABG HCO3 28.6 mmol/L (22-26) H 01/12/23 09:59 ABG O2 Saturation 86.8 01/12/23 09:59 ABG Base Excess 1.1 mmol/L (-2.0-2.0) 01/12/23 09:59 Praful Test Pos 01/12/23 09:59 A-a O2 Gradient 3.9 mmHg (5-10) L 01/12/23 09:59 Hematocrit 54.7 % (42-52) H 01/12/23 09:59 Hgb O2 Saturation 83.6 % (95-100) L 01/12/23 09:59 Carboxyhemoglobin 3.3 %THgb (0.4-20.1) 01/12/23 09:59 Methemoglobin 0.5 % (0.4-1.5) 01/12/23 09:59 Total Hemoglobin 17.9 g/dL (14-18) 01/12/23 09:59 Sodium 139.0 mmol/L (131-143) 01/12/23 09:59 Potassium 4.8 mmol/L (3.5-5.0) 01/12/23 09:59 Glucose 252.0 mg/dL (70-115) H 01/12/23 09:59 Ionized Calcium 1.3 mmol/L (1.1-1.4) 01/12/23 09:59 O2 Delivery Device Nc 01/12/23 09:59 O2 Liters/Min 6.0 % 01/12/23 09:59 Workforce Consultant ID Walci 01/12/23 09:59 Sodium 136 mmol/L (136-145) 01/12/23 08:49 Potassium 4.8 mmol/L (3.5-5.1) 01/12/23 08:49 Chloride 99 mmol/L (98-107) 01/12/23 08:49 Carbon Dioxide 25 mmol/L (22-29) 01/12/23 08:49 Anion Gap 16.8 (5-19) 01/12/23 08:49 BUN 19 mg/dL (8-23) 01/12/23 08:49 Creatinine 1.3 mg/dL (0.7-1.2) H 01/12/23 08:49 GFR Calculation 54.9 mL/min (90-130) L 01/12/23 08:49 Glucose 240 mg/dL (65-115) H 01/12/23 08:49 Calculated Osmolality 292 mOsm/kg (285-295) 01/12/23 08:49 Lactic Acid 2.1 mmol/L (0.5-2.2) 01/12/23 09:58 Calcium 9.1 mg/dL (8.5-10.5) 01/12/23 08:49 Total Bilirubin 0.6 mg/dL (0.15-1.2) 01/12/23 08:49 AST 18 U/L (0-40) 01/12/23 08:49 ALT 11 U/L (0-41) 01/12/23 08:49 Alkaline Phosphatase 149 U/L (40-130) H 01/12/23 08:49 C-Reactive Protein 46.1 mg/L (0.0-4.9) H 01/12/23 08:49 Total Protein 7.3 g/dL (6.6-8.7) 01/12/23 08:49 Albumin 3.3 g/dL (3.5-5.2) L 01/12/23 08:49 Globulin 4.0 g/dL (1.3-4.6) 01/12/23 08:49 Influenza Type A Ag negative (Negative) 01/12/23 11:00 Influenza Type B Ag negative (Negative) 01/12/23 11:00 Discharge Plan Discharge Patient Disposition: Xfer Short-Term Hosp Clinical Impression: Cellulitis, Necrotizing fasciitis of pelvic region and thigh Condition: Stable Prescriptions: No Action insulin aspart U-100 [Novolog FlexPen U-100 Insulin] 100 unit/mL (3 mL) insulin pen See Rx Instructions .ROUTE .COMPLEX Rx Instructions: 3 - 5 unit subcutaneously on sliding scale tid (max 12 units per day) pregabalin 150 mg capsule 150 mg PO TID Lantus Solostar U-100 Insulin 100 unit/mL (3 mL) insulin pen 60 unit SUBCUT DAILY levothyroxine 50 mcg tablet 50 mcg PO DAILY atorvastatin 40 mg Tablet 40 mg PO BEDTIME amlodipine 5 mg tablet 5 mg PO DAILY hydroxyzine HCl 25 mg tablet 25 mg PO TID PRN (Reason: Anxiety) duloxetine 60 mg Capsule,Delayed Release(Dr/Ec) 60 mg PO DAILY Farxiga 10 mg Tablet 10 mg PO DAILY albuterol sulfate 90 mcg/actuation HFA aerosol inhaler 2 inh inhalation Q8H PRN (Reason: shortness of breath or wheezing) Qty: 8.5 3RF fluticasone propion-salmeterol [Advair Diskus] 250-50 mcg/dose blister with device 1 inh inhalation BID Qty: 60 3RF Referrals: Naheed Tesfaye, CONTINUOUS MINING OPERATOR [Primary Care Provider] - Coding Level of Care Code ED Lithoduplicator Operator for Martha Schneider
[2023-01-12 10:14] LABS: Basophils # 0.1 10^3/uL (0.0-0.1); Basophils % 0.4 %; Eosinophils % 0.2 %; Hemoglobin 17.8 g/dL (11.7-16.6); Lymphocytes # 0.8 10^3/uL (0.8-4.8); Lymphocytes % 4.2 %; Mean Corpuscular HGB Conc 32.4 g/dL (30.0-36.0); Mean Corpuscular Hemoglobin 30.7 pg (28.0-34.0); Mean Corpuscular Volume 94.8 fl (80-94); Mean Platelet Volume 11.7 fL (7.4-10.4); Monocytes # 0.8 10^3/uL (0.2-0.9); Monocytes % 4.1 %; Neutrophils # 16.69 10^3/uL (1.8-7.7); Neutrophils % 90.3 %; Nucleated Red Blood Cells % 0 %; Platelet Count 141 10^3/cmm (130-400); White Blood Count 18.5 10^3/uL (4.0-10.0)
[2023-01-12] MEDS: vancomycin 1,000 MG in sodium chloride 0.9% 250 ML 250 MG IV (10:15)
[2023-01-12 10:18] VITALS: O2SAT 96
--- NOTE | 2023-01-12 10:24 | PC.PHAR ---
pts brought in medication bottles-states the pt normally takes care of his own medications- states she is unsure how many units he uses on his insulins-insulins entered is how ext med history shows was last filled-pts didnt bring in the bottle for levothyroxine 50mcg daily ext med history shows last filled 10/17/22 90d/s pts states unsure if pt still taking or not-notes are made in the pharmacy comments
[2023-01-12 10:30] LABS: Lactic Sepsis W/Reflex 2.1 mmol/L (0.5-2.2)
[2023-01-12 10:30] LABS: Alanine Aminotransferase 11 U/L (0-41); Albumin Level 3.3 g/dL (3.5-5.2); Alkaline Phosphatase 149 U/L (40-130); Anion Gap 16.8 (5-19); Aspartate Amino Transferase 18 U/L (0-40); Blood Urea Nitrogen 19 mg/dL (8-23); C Reactive Protein 46.1 mg/L (0.0-4.9); Calcium 9.1 mg/dL (8.5-10.5); Carbon Dioxide 25 mmol/L (22-29); Chloride 99 mmol/L (98-107); Glomerular Filtration Rate 54.9 mL/min (90-130); Glucose 240 mg/dL (65-115); Osmolality Calculated 292 mOsm/kg (285-295); Potassium 4.8 mmol/L (3.5-5.1); Sodium 136 mmol/L (136-145); Total Bilirubin 0.6 mg/dL (0.15-1.2); Total Protein 7.3 g/dL (6.6-8.7)
[2023-01-12 10:39] LABS: Erythrocyte Sedimentation Rate 39 mm/hr (0-10)
--- NOTE | 2023-01-12 11:04 | CT_ITS ---
WS: [id number] CT HEAD NONCONTRAST HISTORY: ams TECHNIQUE: Contiguous axial imaging performed through the brain in 2.5 mm imaging. Bone and soft tiss ue windows. Sagittal and coronal reformats reviewed. All CT scans at [facility] use at least one of these dose optimization techniques: automated exposure control; mA and/or kV adjustment per pa tient size (includes targeted exams where dose is matched to clinical indication); or iterative recon struction. DLP: 1188.20 mGy.cm COMPARISON: None available. No acute intracranial hemorrhage, midline shift or mass effect. Mild atrophy and small vessel ischemic disease. No acute infarct. Ventricles: Normal size with no hydrocephalus. No inferior displacement of cerebellar tonsils. Paranasal sinuses: Mucoperiosteal thickening in the ethmoid and frontal ethmoid recesses. No air-flui d levels. Mastoid air cells: Well pneumatized. Calvarium and scalp: Skull is intact with no soft tissue edema or swelling. CT/CT head wo con* [id number] IMPRESSION: 1. No acute intracranial hemorrhage or edema. 2. Mild atrophy and small vessel ischemic disease.
[2023-01-12] MEDS: iohexol 350 mg/mL 500 mL Btl (per mL) IV (11:38)
[2023-01-12 11:45] LABS: Influenza A by IFA negative (Negative); Influenza B by IFA negative (Negative)
[2023-01-12 11:55] LABS: Reflex Lactate Order REFLEX LACTIC ORDERD
[2023-01-12 11:58] VITALS: BP 174/96; PULSE 78; O2SAT 95
[2023-01-12] MEDS: lactated ringers 1,000 ML 999 ML IV (12:11)
--- NOTE | 2023-01-12 12:20 | ECG_ITS ---
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 Measurements Intervals Gamaliel Rate: 115 P: 69 TN: 189 QRS: -46 QRSD: 105 T: 79 QT: 361 QTc: 501 Interpretive Statements SINUS TACHYCARDIA LEFT ANTERIOR FASCICULAR BLOCK [QRS AXIS <= -45, QR IN I, RS IN II] Compared to ECG 06/28/2022 22:22:52 Left anterior fascicular block now present Sinus rhythm no longer present Electronically Signed On 01-12-2023 18:12:15 SANDBLASTER PAINT SPRAYER by Slava Thompson M.D. [id number]
[2023-01-12 12:29] VITALS: PULSE 115; RESP 18; O2SAT 93
[2023-01-12 13:22] VITALS: BP 169/64; PULSE 109; RESP 18; O2SAT 92
[2023-01-12 13:23] LABS: Lactic Acid level (Lactate) 1.6 mmol/L (0.5-2.2)
[2023-01-12 13:24] LABS: Adenovirus Not Detected (NOT DETECT); Chlamydia Pneumoniae Not Detected (NOT DETECT); Coronavirus 229E,HKU1,NL63,OC4 Not Detected (NOT DETECT); Human Metapneumovirus Not Detected (NOT DETECT); Human Rhinovirus/Enterovirus Not Detected (NOT DETECT); Influenza A Not Detected (NOT DETECT); Influenza A H1 Not Detected (NOT DETECT); Influenza A H1-2009 Not Detected (NOT DETECT); Influenza A H3 Not Detected (NOT DETECT); Influenza B Not Detected (NOT DETECT); Mycoplasma Pneumoniae Not Detected (NOT DETECT); Parainfluenza Virus Type 1 Not Detected (NOT DETECT); Parainfluenza Virus Type 2 Not Detected (NOT DETECT); Parainfluenza Virus Type 3 Not Detected (NOT DETECT); Parainfluenza Virus Type 4 Not Detected (NOT DETECT); Respiratory Syncytial Virus A Not Detected (NOT DETECT); Respiratory Syncytial Virus B Not Detected (NOT DETECT); SARS-COV-2 Not Detected (NOT DETECT)
[2023-01-12 14:13] VITALS: BP 174/93; PULSE 105; RESP 26; O2SAT 94
== END 2023-01-12 14:16 | disposition short-term general hospital (02) ==
PROVIDERS: Physician Assistant; Emergency Provider Emergency Medicine; PCP Nurse Practitioner Family
DX: M72.6 Necrotizing fasciitis (principal); L03.115 Cellulitis of right lower limb; E11.9 Type 2 diabetes mellitus without complications; J44.9 Chronic obstructive pulmonary disease, unspecified; I10 Essential (primary) hypertension
CPT/HCPCS: 36415; 36600; 70450; 71045; 74177; 80051; 80053; 82330; 82805; 83605; 85025; 85651; 86140; 87040; 87635; 87804; 93005; 96361; 96374; 96375; 99285; J2543; J3370; J7030; J7050; J7120; Q9967

== ENCOUNTER 2023-05-28 18:08 | Inpatient (IN) | payer MEDICARE, SELFPAY ==
[2023-05-28] VITALS (12 sets, daily range): BP systolic 91–193; BP diastolic 57–90; PULSE 96–119; RESP 22–30; TEMP 38.7–39.6; O2SAT 88–97; BMI 4823.4
--- NOTE | 2023-05-28 18:28 | CTR_ITS ---
PROCEDURE INFORMATION: Exam: CT Head Without Contrast Exam date and time: 05/28/2023 7:24 PM Age: 68 years old Clinical indication: Altered mental status/memory loss; Patient HX: Acute confusion. ; Additional info: AMS TECHNIQUE: Imaging protocol: Computed tomography of the head without contrast. Radiation optimization: All CT scans at this facility use at least one of these dose optimization techniques: automated exposure control; mA and/or kV adjustment per patient size (includes targeted exams where dose is matched to clinical indication); or iterative reconstruction. REPORTING DATA: Count of CT and Cardiac NM exams in prior 12 months: This patient has received 3 known CTs and 0 known cardiac nuclear medicine studies in the 12 months prior to the current study. COMPARISON: CT head wo con* [id number] 01/12/2023 11:20 AM RADIATION DOSE METRICS: Total DLP (mGy-cm): 939.01 FINDINGS: Brain: Mild diffuse cortical volume loss. Mild hypodensities in supratentorial periventricular and subcortical white matter, consistent with microangiopathy. No intracranial hemorrhage. Cerebral ventricles: No ventriculomegaly. Paranasal sinuses: Visualized sinuses are unremarkable. No fluid levels. Mastoid air cells: Visualized mastoid air cells are well aerated. Bones/joints: Unremarkable. No acute fracture. Soft tissues: Unremarkable. Vasculature: No hyperdense artery. CT/CT head wo con* [id number] IMPRESSION: Stable CT head. No acute intracranial abnormality.
--- NOTE | 2023-05-28 18:28 | CTR_ITS ---
PROCEDURE INFORMATION: Exam: CT Pelvis With Contrast Exam date and time: 05/28/2023 7:28 PM Age: 68 years old Clinical indication: Cellulitis; Groin, acute; Prior surgery; Surgery date: 6+ months; Surgery type: Penectomy; Patient HX: Discoloration and redness to RT lower pannus and entierety of groin scrotum. ; Additional info: Perrineal cellulitis, ? nec fasc. HX of conduit, posterior to scrotum TECHNIQUE: Imaging protocol: Computed tomography of the pelvis with contrast. Radiation optimization: All CT scans at this facility use at least one of these dose optimization techniques: automated exposure control; mA and/or kV adjustment per patient size (includes targeted exams where dose is matched to clinical indication); or iterative reconstruction. Contrast material: OMNI 350; Contrast volume: 100 ml; Contrast route: INTRAVENOUS (IV); REPORTING DATA: Count of CT and Cardiac NM exams in prior 12 months: This patient has received 3 known CTs and 0 known cardiac nuclear medicine studies in the 12 months prior to the current study. COMPARISON: 1. CT abdomen pelvis w con* [id number] 01/12/2023 11:[address] abdomen pelvis w con* [id number] 06/28/2022 12:[address] pelvis wo con [id number] 09/25/2018 3:27 PM RADIATION DOSE METRICS: Total DLP (mGy-cm): 1015.83 FINDINGS: Stomach and bowel: Mild colonic diverticulosis. Visualized small bowel and colon are otherwise unremarkable. Appendix: No evidence of appendicitis. Intraperitoneal space: Unremarkable. No free air. No significant fluid collection. Vasculature: Mild vascular calcifications without aneurysmal dilatation. Lymph nodes: Asymmetric enlargement of multiple left inguinal and external iliac lymph nodes similar to prior exams, possible slight waxing and waning. Normal right inguinal and external iliac lymph nodes. Urinary bladder: Navas catheter in decompressed urinary bladder. Reproductive: Normal as visualized. Bones/joints: No acute fracture. Mild degenerative changes of the imaged axial and proximal appendicular skeletal system. Soft tissues: Mild pannus skin thickening and subcutaneous edema. Small fat containing bilateral inguinal hernias. Otherwise unremarkable. No soft tissue gas. CT/CT pelvis w con* [id number] IMPRESSION: 1. Left inguinal lymphadenopathy may be reactive. No right-sided lymphadenopathy. 2. Mild pannus skin thickening and subcutaneous edema in keeping with reported cellulitis. No abscess or soft tissue gas.
--- NOTE | 2023-05-28 18:28 | XRR_ITS ---
PROCEDURE INFORMATION: Exam: XR Chest Exam date and time: 05/28/2023 6:37 PM Age: 68 years old Clinical indication: Other: Sepsis TECHNIQUE: Imaging protocol: Radiologic exam of the chest. Views: 1 view. COMPARISON: CR XR chest 1V portable [id number] 01/12/2023 9:56 AM FINDINGS: Lungs: Mild atelectasis in the left lung base. The lungs otherwise are clear. Pleural spaces: Unremarkable. No pleural effusion. No pneumothorax. Heart/Mediastinum: Unremarkable. No cardiomegaly. Bones/joints: Unremarkable. XR/XR chest 1V portable [id number] IMPRESSION: No acute findings.
[2023-05-28 18:47] LABS: ABG PCO2 56.8 mmHg (35-45); ABG PH Result 7.39 (7.35-7.45); Arterial Blood Gas Hematocrit 50.4 % (42-52); Base Excess ABG 7.2 mmol/L (-2.0-2.0); Blood Gas Operator Identificat AMH; Blood Gas Sample Site Brachial, left; Blood Gas Sample Type Arterial; HCO3 ABG 34.4 mmol/L (22-26); Oxygen Device NC; PO2 ABG 62.3 mmHg (80.0-100.0)
--- NOTE | 2023-05-28 18:51 | ECG_ITS ---
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 Measurements Intervals [place] Rate: 122 P: 79 VT: 179 QRS: -32 QRSD: 106 T: 84 QT: 311 QTc: 444 Interpretive Statements SINUS TACHYCARDIA LEFT AXIS DEVIATION [QRS AXIS < -30] INTERPRETATION BASED ON A DEFAULT AGE OF 40 YEARS Compared to ECG 01/12/2023 12:20:40 Left-axis deviation now present Left anterior fascicular block no longer present Electronically Signed On 05-29-2023 21:30:09 CDT by Sergo Schwab M.D. [email or web address] medical [id number] f
[2023-05-28 18:55] LABS: Basophils # 0.1 10^3/uL (0.0-0.1); Basophils % 0.4 %; Eosinophils # 0.2 10^3/uL (0.0-0.8); Eosinophils % 1.4 %; Hemoglobin 15.8 g/dL (11.7-16.6); Lymphocytes # 1.2 10^3/uL (0.8-4.8); Lymphocytes % 8.2 %; Mean Platelet Volume 11.4 fL (7.4-10.4); Monocytes # 0.6 10^3/uL (0.2-0.9); Monocytes % 4.4 %; Neutrophils # 12.01 10^3/uL (1.8-7.7); Neutrophils % 84.6 %; Nucleated Red Blood Cells % 0 %; Platelet Count 161 10^3/cmm (130-400); Red Blood Count 5.26 10^6/uL (4.1-5.3); White Blood Count 14.2 10^3/uL (4.0-10.0)
[2023-05-28 19:17] LABS: Alanine Aminotransferase 11 U/L (0-41); Albumin Level 3.5 g/dL (3.5-5.2); Alkaline Phosphatase 170 U/L (40-130); Blood Urea Nitrogen 31 mg/dL (8-23); C Reactive Protein 32.3 mg/L (0.0-4.9); Calcium 8.8 mg/dL (8.5-10.5); Carbon Dioxide 33 mmol/L (22-29); Chloride 97 mmol/L (98-107); Globulin 4.2 g/dL (1.3-4.6); Glomerular Filtration Rate 54.7 mL/min (90-130); Glucose 180 mg/dL (65-115); Osmolality Calculated 297 mOsm/kg (285-295); Sodium 138 mmol/L (136-145); Total Bilirubin 0.5 mg/dL (0.15-1.2); Total Protein 7.7 g/dL (6.6-8.7)
[2023-05-28 19:18] LABS: Lactic Sepsis W/Reflex 1.4 mmol/L (0.5-2.2)
[2023-05-28 19:34] LABS: Anion Gap 12.7 (5-19); Potassium 4.7 mmol/L (3.5-5.1)
[2023-05-28 19:35] LABS: Aspartate Amino Transferase 20 U/L (0-40)
[2023-05-28 19:37] LABS: Bilirubin Urine Neg (Negative); Blood Urine 2+ (Negative); Glucose Urine UA 4+ (Normal); Ketones Urine 1+ (Negative); Leukocyte Esterase Urine Trace (Negative); Nitrate Urine Positive (Negative); Protein Urine 3+ (Negative); Urine Appearance Cloudy (CLEAR); Urine Color Yellow (Yellow); Urobilinogen Urine Norm (Negative); pH Urine 5 (5-7)
[2023-05-28] MEDS: iohexol 350 mg/mL 500 mL Btl (per mL) IV (19:37)
--- NOTE | 2023-05-28 19:37 | PC.NURSE ---
Patient arrived via EMS approx 1600 with AMS unable to answer questions and moaning in pain. Not following commands. Navas place to perineal urostomy site with good return. BP elevated oxygen saturation at 88% on 6L with baseline of 3LNC. Respiratory at bedside. PHysician at bedside orders being placed
[2023-05-28 19:38] LABS: Add Urine Microscopic? YES
[2023-05-28 19:39] LABS: Add Urine Culture? Yes; Bacteria Urine 2+ /hpf; Squamous Epithelial Cell Urine 0-4 /hpf (0-5); WBC Urine 40-55 /hpf (0-5)
[2023-05-28] MEDS: sodium chloride 0.9% 1,000 ML 999 ML IV ×2 (20:00→21:25)
[2023-05-28] MEDS: ketorolac 30 mg/mL INJ 15 MG IVP (20:01)
[2023-05-28] MEDS: piperacillin-tazobactam 4.5 GM in sodium chloride 0.9% (plus) 50 ML IV (20:04)
--- NOTE | 2023-05-28 20:13 | ED_ITS ---
HPI - Altered Mental Status General: Chief Complaint: Altered Mental Status Stated Complaint: AMS Time Seen by Provider: 05/28/23 18:11 History of Present Illness: 68-year-old male here with mental status changes and significant fever. Temperature is 103. 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 This was evidently because of chronic skin infections to the area. The conduit also leads to chronic skin irritation as well. Family had reported that he had tender, swollen, red testicles. No other source of infection is revealed by history. The patient has significant altered mental status and is a poor historian at this point. MD complaint: altered mental status, confusion and decreased responsiveness Onset (ago): unknown Severity: moderate Consistency of symptoms: Getting Worse Associated symptoms: Reports other Treatments prior to arrival: IV fluid and oxygen Review of Systems General: Reports: ROS unobtainable due to mental status Const: Reports: fever(s) Resp: Reports: dyspnea Skin/Breast: Reports: rash PFSH ED PFSH: Medical History Body mass index [BMI] 36.0-36.9, adult Cellulitis of right lower extremity Chronic kidney disease, stage III (moderate) COPD (chronic obstructive pulmonary disease) Depression with anxiety Diabetes mellitus, type II Diabetic peripheral neuropathy Diarrhea Fever History of renal dialysis Required temporary dialysis after a severe bout of influenza Hyperlipidemia Hypertension Hypoxia Nicotine dependence, cigarettes, with other nicotine-induced disorders Penile cancer Peripheral vascular disease Plantar porokeratosis, acquired Tinea cruris UTI (urinary tract infection) Surgical History History of incision and drainage History of penectomy Prior to surgical removal due to cancer had had 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 Status post endovenous radiofrequency ablation of saphenous vein Family History Mother Diabetes Lung disease CAD (coronary artery disease) Social History Smoking and tobacco status: current every day smoker cigarettes Packs smoked per day: 1 Years cigarettes smoked: 51 Quit status (tobacco): not considering quitting Alcohol intake: former Substance/Drug Use: never Household members: spouse Physical Exam Const: GENERAL APPEARANCE: ill appearing, frail appearing and diaphoretic ORIENTATION/CONSCIOUSNESS: Yes awake; not oriented to person, not oriented to place and not oriented to time HENMT: COMMON NORMALS: atraumatic and Normal external nose present HEAD & SCALP: atraumatic NOSE: Normal external nose present Eye: COMMON NORMALS: Equal, round and reactive pupils present and EOMs intact bilaterally PUPIL: Yes Equal, round and reactive pupils present Neck/C-Spine: GENERAL: Yes trachea midline Chest: CHEST: Yes Symmetrical chest wall rise Resp: EFFORT & INSPECTION: Yes tachypneic and Yes labored Cardio: COMMON NORMALS: regular rhythm RATE: tachycardic RHYTHM: regular rhythm GI: COMMON NORMALS: Normal to inspection, nondistended, normoactive bowel sounds present : MALE GROIN/PERINEUM EXAM: Yes edema and Yes erythema PENIS: other Neuro: KYA COMA SCALE: document GCS findings [place] coma scale eye opening: Spontaneous Kya coma scale verbal response: Sounds [place] coma scale motor response: Localising [place] coma scale total score: 11 SENSORIUM/ORIENTATION: No oriented to person, No oriented to place and No oriented to time Skin: NARRATIVE SKIN EXAM: Cellulitic scrotum, perineum. No abscess. Urinary Catheter Management: Navas: Cath Placed During This Visit: yes Urinary Catheter Date of Insertion: 05/28/23 Urinary Catheter Time of Insertion: 19:22 Course Vital Signs: Vital signs: Vital Signs Temperature 98.1 F 05/29/23 16:00 Pulse Rate 82 05/29/23 22:00 Respiratory Rate 27 H 05/29/23 21:00 Blood Pressure 108/58 05/29/23 21:00 Pulse Oximetry 95 05/29/23 21:00 Oxygen Delivery Me thod High Flow Nasal C annula 05/29/23 19:23 Oxygen Flow Rate 12 05/29/23 19:23 Fraction of Inspir ed Oxygen 50 05/29/23 18:00 MDM - Altered Mental Status Medical Decision Making Febrile tachycardic short of breath male with altered mental status. Heart rate is down to 110s from 120s and 30s. Saturations are 93% on BiPAP currently. Blood gas before BiPAP showed a PO2 of 62 on 6 L with a PCO2 of 57 and a pH of 7.39. He was placed on BiPAP at that point. Chest x-ray is nonacute. Head CT is nonacute. CT of the pelvis reveals cellulitis with no abscess or gas formation. Lactic acid is normal. Patient is getting Vanco and Zosyn after blood cultures here. Fluid boluses going in. He is actually mildly hypertensive and not hypotensive. He will go to ICU. Hospitalist will see the patient in the ER. Lab Data 05/29/23 02:40 05/29/23 02:40 Radiology Impressions Chest X-Ray 05/28/23 18:28 IMPRESSION: No acute findings. Head CT 05/28/23 18:28 IMPRESSION: Stable CT head. No acute intracranial abnormality. Pelvis CT 05/28/23 18:28 IMPRESSION: 1. Left inguinal lymphadenopathy may be reactive. No right-sided lymphadenopathy. 2. Mild pannus skin thickening and subcutaneous edema in keeping with reported cellulitis. No abscess or soft tissue gas. Laboratory Results WBC 14.2 10^3/uL (4.0-10.0) H 05/28/23 17:50 RBC 5.26 10^6/uL (4.1-5.3) 05/28/23 17:50 Hgb 15.8 g/dL (11.7-16.6) 05/28/23 17:50 Hct 51.0 % (42.0-52.0) 05/28/23 17:50 MCV 97.0 fl (80-94) H 05/28/23 17:50 MCH 30.0 pg (28.0-34.0) 05/28/23 17:50 MCHC 31.0 g/dL (30.0-36.0) 05/28/23 17:50 RDW 14.0 % (12.1-15.1) 05/28/23 17:50 Plt Count 161 10^3/cmm (130-400) 05/28/23 17:50 MPV 11.4 fL (7.4-10.4) H 05/28/23 17:50 Neut % (Auto) 84.6 % 05/28/23 17:50 Lymph % (Auto) 8.2 % 05/28/23 17:50 [place] % (Auto) 4.4 % 05/28/23 17:50 Eos % (Auto) 1.4 % 05/28/23 17:50 Baso % (Auto) 0.4 % 05/28/23 17:50 Neut # (Auto) 12.01 10^3/uL (1.8-7.7) H 05/28/23 17:50 Lymph # (Auto) 1.2 10^3/uL (0.8-4.8) 05/28/23 17:50 [place] # (Auto) 0.6 10^3/uL (0.2-0.9) 05/28/23 17:50 Eos # (Auto) 0.2 10^3/uL (0.0-0.8) 05/28/23 17:50 Baso # (Auto) 0.1 10^3/uL (0.0-0.1) 05/28/23 17:50 Nucleated RBC % (auto) 0 % 05/28/23 17:50 Nucleated RBCs # 0.0 /100WBC 05/28/23 17:50 D-Dimer 0.69 ug/mIFEU (0-0.59) H 05/28/23 17:50 Specimen Type Arterial 05/28/23 18:36 Sample Site Brachial, left 05/28/23 18:36 ABG pH 7.39 (7.35-7.45) 05/28/23 18:36 ABG pCO2 56.8 mmHg (35-45) H 05/28/23 18:36 ABG pO2 62.3 mmHg (80.0-100.0) L 05/28/23 18:36 ABG HCO3 34.4 mmol/L (22-26) H 05/28/23 18:36 ABG Base Excess 7.2 mmol/L (-2.0-2.0) H 05/28/23 18:36 Praful Test N/a 05/28/23 18:36 Hematocrit 50.4 % (42-52) 05/28/23 18:36 O2 Delivery Device Nc 05/28/23 18:36 O2 Liters/Min 6.0 % 05/28/23 18:36 FiO2 44.0 % 05/28/23 18:36 Blockmason ID Amh 05/28/23 18:36 Sodium 138 mmol/L (136-145) 05/28/23 17:50 Potassium 4.7 mmol/L (3.5-5.1) 05/28/23 17:50 Chloride 97 mmol/L (98-107) L 05/28/23 17:50 Carbon Dioxide 33 mmol/L (22-29) H 05/28/23 17:50 Anion Gap 12.7 (5-19) 05/28/23 17:50 BUN 31 mg/dL (8-23) H 05/28/23 17:50 Creatinine 1.3 mg/dL (0.7-1.2) H 05/28/23 17:50 GFR Calculation 54.7 mL/min (90-130) L 05/28/23 17:50 Glucose 180 mg/dL (65-115) H 05/28/23 17:50 Calculated Osmolality 297 mOsm/kg (285-295) H 05/28/23 17:50 Lactic Acid 1.4 mmol/L (0.5-2.2) 05/28/23 18:47 Calcium 8.8 mg/dL (8.5-10.5) 05/28/23 17:50 Total Bilirubin 0.5 mg/dL (0.15-1.2) 05/28/23 17:50 AST 20 U/L (0-40) 05/28/23 17:50 ALT 11 U/L (0-41) 05/28/23 17:50 Alkaline Phosphatase 170 U/L (40-130) H 05/28/23 17:50 Troponin T Baseline 29 ng/L (0-15) H 05/28/23 17:50 C-Reactive Protein 32.3 mg/L (0.0-4.9) H 05/28/23 17:50 NT-Pro-B Natriuret Pep 379 pg/mL (0-125) H 05/28/23 17:50 Total Protein 7.7 g/dL (6.6-8.7) 05/28/23 17:50 Albumin 3.5 g/dL (3.5-5.2) 05/28/23 17:50 Globulin 4.2 g/dL (1.3-4.6) 05/28/23 17:50 TSH 1.34 uIU/mL (0.27-4.20) 05/28/23 17:50 Urine Color Yellow (Yellow) 05/28/23 19:17 Urine Appearance Cloudy (CLEAR) A 05/28/23 19:17 Urine pH 5 (5-7) 05/28/23 19:17 Ur Specific [place] 1.010 (1.005-1.030) 05/28/23 19:17 Urine Protein 3+ (Negative) H 05/28/23 19:17 Urine Glucose (UA) 4+ (Normal) H 05/28/23 19:17 Urine Ketones 1+ (Negative) H 05/28/23 19:17 Urine Blood 2+ (Negative) H 05/28/23 19:17 Urine Nitrate Positive (Negative) H 05/28/23 19:17 Urine Bilirubin Neg (Negative) 05/28/23 19:17 Urine Urobilinogen Norm mg/dL (Negative) 05/28/23 19:17 Ur Leukocyte Esterase Trace (Negative) H 05/28/23 19:17 Urine RBC 5-10 /hpf (0-2) H 05/28/23 19:17 Urine WBC 40-55 /hpf (0-5) H 05/28/23 19:17 Ur Squamous Epith Cells 0-4 /hpf (0-5) H 05/28/23 19:17 Amorphous Sediment Not Reportable 05/28/23 19:17 Urine Bacteria 2+ /hpf (NONE) H 05/28/23 19:17 Discharge Plan Discharge Patient Disposition: Admitted As Inpatient Admit Provider: Kerri White Clinical Impression: Altered mental status, Acute UTI, Cellulitis, pelvic Condition: Stable Coding Level of Care Code ED Tumbling And Rolling Supervisor for Martha Schneider
[2023-05-28] MEDS: vancomycin 1,250 MG/250 ML PIGGYBACK 250 MG IV (20:23)
--- NOTE | 2023-05-28 20:47 | PM.HP ---
Providers/Chief Complaint Primary Care Provider: Naheed Tesfaye Chief Complaint: AMS History of Present Illness History is all obtained by talking to patient's family including his and daughter. Sanchez Phillips is a 68 year old male with a past medical history of diabetes mellitus, COPD, possible cardiomyopathy, history of recurrent sepsis from genitourinary sources. 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 Since then he has a urinary conduit that drains inferior to his scrotum and leads to recurrent skin excoriation and intertrigo. At baseline he has difficulty ambulating, is able to walk a few short steps within the house and perform basic ADLs. He is brought by the family today due to concern for altered mental status. Patient was in his usual state of health until this morning when this afternoon he started to experience fever and chills and then quickly started to become lethargic and disoriented. He was noted to have a worsening rash in the genital area along with swelling and erythema of his scrotum. No other history is directly available from the patient at this time. He has a history of COPD, typically wears 3 L/min supplemental O2 at home. Does not usually use a BiPAP or CPAP. Upon ER arrival he was noted to be hypoxic and dyspneic which necessitated placement on a BiPAP. states that his last episode of sepsis was in January of this year at which time he was [place] [facility] [place] [facility] due to concern for necrotizing fasciitis. Hospital course was complicated by development of cardiomyopathy, it appears his EF is around 20%. He also had what appears to be pneumonia and pleural effusion per history. Review of Systems General: Reports: ROS unobtainable due to mental status Medications/Allergies Home Medications Medication Instructions Recorded Confirmed Last Taken Type insulin aspart U-100 100 unit/mL See Rx Instructions .Route .COMPLEX 09/03/20 01/12/23 06/27/22 History (3 mL) subcutaneous pen (Novolog FlexPen U-100 Insulin aspart) amlodipine 5 mg tablet 5 mg PO DAILY 06/28/22 01/12/23 06/27/22 History atorvastatin 40 mg tablet 40 mg PO BEDTIME 06/28/22 01/12/23 06/27/22 History dapagliflozin 10 mg tablet 10 mg PO DAILY 06/28/22 01/12/23 06/27/22 History (Farxiga) duloxetine 60 mg capsule,delayed 60 mg PO DAILY 06/28/22 01/12/23 06/27/22 History release hydroxyzine HCl 25 mg tablet 25 mg PO TID PRN Anxiety 06/28/22 01/12/23 06/27/22 History albuterol sulfate 90 mcg/actuation 2 inh inhalation Q8H PRN shortness 06/30/22 01/12/23 Unknown Rx aerosol inhaler of breath or wheezing #8.5 grams fluticasone 250 mcg-salmeterol 50 1 inh inhalation BID #60 ea 06/30/22 01/12/23 Unknown Rx mcg/dose blistr powdr for inhalation (Advair Diskus) insulin glargine 100 unit/mL (3 60 unit SUBCUT DAILY 01/12/23 01/12/23 Unknown History mL) subcutaneous pen (Lantus Solostar U-100 Insulin) levothyroxine 50 mcg tablet 50 mcg PO DAILY 01/12/23 01/12/23 Unknown History pregabalin 150 mg capsule 150 mg PO TID 01/12/23 05/28/23 Unknown History apixaban 5 mg tablet (Eliquis) mg 05/28/23 05/28/23 Unknown History atorvastatin 40 mg tablet mg 05/28/23 Unknown History bumetanide 1 mg tablet mg 05/28/23 Unknown History dapagliflozin 5 mg tablet (Farxiga) mg 05/28/23 Unknown History duloxetine 60 mg capsule,delayed mg PO 05/28/23 Unknown History release insulin glargine 100 unit/mL (3 unit SUBCUT 05/28/23 Unknown History mL) subcutaneous pen (Lantus Solostar U-100 Insulin) insulin glargine 100 unit/mL (3 unit SUBCUT 05/28/23 Unknown History mL) subcutaneous pen (Lantus Solostar U-100 Insulin) levothyroxine 50 mcg tablet mcg 05/28/23 Unknown History metoprolol succinate 50 mg mg PO 05/28/23 Unknown History tablet,extended release 24 hr pantoprazole 40 mg tablet,delayed mg PO 05/28/23 Unknown History release Allergies Allergy/AdvReac Type Severity Reaction Status Date / Time No Known Allergies Allergy Verified 01/12/23 10:24 PFSH Acute PFSH: Medical History Body mass index [BMI] 36.0-36.9, adult Cellulitis of right lower extremity Chronic kidney disease, stage III (moderate) COPD (chronic obstructive pulmonary disease) Depression with anxiety Diabetes mellitus, type II Diabetic peripheral neuropathy Diarrhea Fever History of renal dialysis Required temporary dialysis after a severe bout of influenza Hyperlipidemia Hypertension Hypoxia Nicotine dependence, cigarettes, with other nicotine-induced disorders Penile cancer Peripheral vascular disease Plantar porokeratosis, acquired Tinea cruris UTI (urinary tract infection) Surgical History History of incision and drainage History of penectomy Prior to surgical removal due to cancer had had 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 Status post endovenous radiofrequency ablation of saphenous vein Family History Mother Diabetes Lung disease CAD (coronary artery disease) Social History Smoking and tobacco status: current every day smoker cigarettes Packs smoked per day: 1 Years cigarettes smoked: 51 Quit status (tobacco): not considering quitting Alcohol intake: former Substance/Drug Use: never Household members: spouse Vitals/I&O/Wt Last Vital Signs Temp 103.3 F H 05/28/23 18:48 Pulse 117 H 05/28/23 19:08 Resp 22 H 05/28/23 18:36 BP 193/90 05/28/23 18:48 Pulse Ox 97 05/28/23 19:08 O2 Del Method Nasal Cannula 05/28/23 18:36 O2 Flow Rate 6 05/28/23 18:36 FiO2 50 05/28/23 19:08 05/28/23 05/28/23 05/28/23 06:59 14:59 22:59 Intake Total 50 / 50 Balance 50 / 50 Weight last 48 hrs Weight 112.037 kg Physical Exam Narrative: General: Lethargic, disoriented, currently has BiPAP in place. Only states a few sentences like I am not doing good, I feel sick HEENT: PERRLA, currently on a BiPAP Chest: Bilateral coarse conducted breath sounds with wheezing CVS: S1-S2 regular, no murmurs, no tachycardia, no gallops, no rubs Abdomen: Soft, nondistended Neuro: Moves all extremities while laying in bed Extremities: Onycholysis involving all toes, no lower extremity cellulitis. Urinary Catheter Management: Navas: Cath Placed During This Visit: yes Urinary Catheter Date of Insertion: 05/28/23 Urinary Catheter Time of Insertion: 19:22 Data 05/28/23 17:50 05/28/23 17:50 Micro: Microbiology 05/28/23 18:45 Blood Culture - Preliminary Blood SPECIMEN COLLECTED 05/28/23 18:47 Blood Culture - Preliminary Blood SPECIMEN COLLECTED ABG Interpretation 1: 05/28/23 18:36 ABG pH 7.39 ABG pCO2 56.8 H ABG pO2 62.3 L ABG HCO3 34.4 H ABG Base Excess 7.2 H Other data: Radiology Impressions Chest X-Ray 05/28/23 18:28 IMPRESSION: No acute findings. Head CT 05/28/23 18:28 IMPRESSION: Stable CT head. No acute intracranial abnormality. Pelvis CT 05/28/23 18:28 IMPRESSION: 1. Left inguinal lymphadenopathy may be reactive. No right-sided lymphadenopathy. 2. Mild pannus skin thickening and subcutaneous edema in keeping with reported cellulitis. No abscess or soft tissue gas. Laboratory Results WBC 14.2 10^3/uL (4.0-10.0) H 05/28/23 17:50 RBC 5.26 10^6/uL (4.1-5.3) 05/28/23 17:50 Hgb 15.8 g/dL (11.7-16.6) 05/28/23 17:50 Hct 51.0 % (42.0-52.0) 05/28/23 17:50 MCV 97.0 fl (80-94) H 05/28/23 17:50 MCH 30.0 pg (28.0-34.0) 05/28/23 17:50 MCHC 31.0 g/dL (30.0-36.0) 05/28/23 17:50 RDW 14.0 % (12.1-15.1) 05/28/23 17:50 Plt Count 161 10^3/cmm (130-400) 05/28/23 17:50 MPV 11.4 fL (7.4-10.4) H 05/28/23 17:50 Neut % (Auto) 84.6 % 05/28/23 17:50 Lymph % (Auto) 8.2 % 05/28/23 17:50 [place] % (Auto) 4.4 % 05/28/23 17:50 Eos % (Auto) 1.4 % 05/28/23 17:50 Baso % (Auto) 0.4 % 05/28/23 17:50 Neut # (Auto) 12.01 10^3/uL (1.8-7.7) H 05/28/23 17:50 Lymph # (Auto) 1.2 10^3/uL (0.8-4.8) 05/28/23 17:50 [place] # (Auto) 0.6 10^3/uL (0.2-0.9) 05/28/23 17:50 Eos # (Auto) 0.2 10^3/uL (0.0-0.8) 05/28/23 17:50 Baso # (Auto) 0.1 10^3/uL (0.0-0.1) 05/28/23 17:50 Nucleated RBC % (auto) 0 % 05/28/23 17:50 Nucleated RBCs # 0.0 /100WBC 05/28/23 17:50 D-Dimer 0.69 ug/mIFEU (0-0.59) H 05/28/23 17:50 Specimen Type Arterial 05/28/23 18:36 Sample Site Brachial, left 05/28/23 18:36 ABG pH 7.39 (7.35-7.45) 05/28/23 18:36 ABG pCO2 56.8 mmHg (35-45) H 05/28/23 18:36 ABG pO2 62.3 mmHg (80.0-100.0) L 05/28/23 18:36 ABG HCO3 34.4 mmol/L (22-26) H 05/28/23 18:36 ABG Base Excess 7.2 mmol/L (-2.0-2.0) H 05/28/23 18:36 Praful Test N/a 05/28/23 18:36 Hematocrit 50.4 % (42-52) 05/28/23 18:36 O2 Delivery Device Nc 05/28/23 18:36 O2 Liters/Min 6.0 % 05/28/23 18:36 FiO2 44.0 % 05/28/23 18:36 Breakfast Attendant ID Amh 05/28/23 18:36 Sodium 138 mmol/L (136-145) 05/28/23 17:50 Potassium 4.7 mmol/L (3.5-5.1) 05/28/23 17:50 Chloride 97 mmol/L (98-107) L 05/28/23 17:50 Carbon Dioxide 33 mmol/L (22-29) H 05/28/23 17:50 Anion Gap 12.7 (5-19) 05/28/23 17:50 BUN 31 mg/dL (8-23) H 05/28/23 17:50 Creatinine 1.3 mg/dL (0.7-1.2) H 05/28/23 17:50 GFR Calculation 54.7 mL/min (90-130) L 05/28/23 17:50 Glucose 180 mg/dL (65-115) H 05/28/23 17:50 POC Glucose 204 mg/dL (70-110) H 05/28/23 22:22 Calculated Osmolality 297 mOsm/kg (285-295) H 05/28/23 17:50 Lactic Acid 1.4 mmol/L (0.5-2.2) 05/28/23 18:47 Calcium 8.8 mg/dL (8.5-10.5) 05/28/23 17:50 Total Bilirubin 0.5 mg/dL (0.15-1.2) 05/28/23 17:50 AST 20 U/L (0-40) 05/28/23 17:50 ALT 11 U/L (0-41) 05/28/23 17:50 Alkaline Phosphatase 170 U/L (40-130) H 05/28/23 17:50 Troponin T Baseline 29 ng/L (0-15) H 05/28/23 17:50 Troponin T 120 Minute 28.07 ng/L (0-15) H 05/28/23 21:15 Delta Troponin T -0.93 ABS# (0-10) L 05/28/23 21:15 C-Reactive Protein 32.3 mg/L (0.0-4.9) H 05/28/23 17:50 NT-Pro-B Natriuret Pep 379 pg/mL (0-125) H 05/28/23 17:50 Total Protein 7.7 g/dL (6.6-8.7) 05/28/23 17:50 Albumin 3.5 g/dL (3.5-5.2) 05/28/23 17:50 Globulin 4.2 g/dL (1.3-4.6) 05/28/23 17:50 TSH 1.34 uIU/mL (0.27-4.20) 05/28/23 17:50 Urine Color Yellow (Yellow) 05/28/23 19:17 Urine Appearance Cloudy (CLEAR) A 05/28/23 19:17 Urine pH 5 (5-7) 05/28/23 19:17 Ur Specific [place] 1.010 (1.005-1.030) 05/28/23 19:17 Urine Protein 3+ (Negative) H 05/28/23 19:17 Urine Glucose (UA) 4+ (Normal) H 05/28/23 19:17 Urine Ketones 1+ (Negative) H 05/28/23 19:17 Urine Blood 2+ (Negative) H 05/28/23 19:17 Urine Nitrate Positive (Negative) H 05/28/23 19:17 Urine Bilirubin Neg (Negative) 05/28/23 19:17 Urine Urobilinogen Norm mg/dL (Negative) 05/28/23 19:17 Ur Leukocyte Esterase Trace (Negative) H 05/28/23 19:17 Urine RBC 5-10 /hpf (0-2) H 05/28/23 19:17 Urine WBC 40-55 /hpf (0-5) H 05/28/23 19:17 Ur Squamous Epith Cells 0-4 /hpf (0-5) H 05/28/23 19:17 Amorphous Sediment Not Reportable 05/28/23 19:17 Urine Bacteria 2+ /hpf (NONE) H 05/28/23 19:17 A&P Assessment and plan (1) Sepsis: 68-year-old male with a past medical history of COPD diabetes, possible cardiomyopathy, 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 Sepsis criteria is met with fever, leukocytosis, tachypnea, tachycardia and endorgan dysfunction by way of metabolic encephalopathy. Source appears to be genitourinary infection. Lactate 1.4. Been given sepsis bolus in the emergency room, further fluids have not been continued due to reported history of cardiomyopathy, patient currently appearing to be hypervolemic. Started on empiric antibiotic coverage with piperacillin/tazobactam and IV vancomycin. Add fluconazole 100 mg IV daily due to severe intertrigo CT of the pelvis without any focal gas or abscess. Noted changes of cellulitis as also seen on clinical exam. UA with positive nitrate, trace leukocyte esterase, 40-55 WBCs. Navas catheter has been placed in the emergency room. Pending urine culture. Blood culture taken prior to starting antibiotics. (2) Altered mental status: Suspect metabolic encephalopathy from sepsis. Also noted to have hypercapnia on his ABG today, however pH is 7.39, appearing to be compensated chronic respiratory failure. (3) Acute UTI: Acute complicated UTI, management as above (4) Cellulitis, pelvic: Management as above, currently on empiric antibiotics (5) COPD (chronic obstructive pulmonary disease): COPD with acute exacerbation and respiratory distress necessitating BiPAP ventilation Diffuse bilateral wheezing on exam. DuoNeb every 6 hours and budesonide every 12 hours scheduled nebulization. Titrate to maintain saturation of around 90%. Dexamethasone 6 mg IV daily, aim for short course until clinical improvement Low probability of PE since patient is on Eliquis for history of A-fib. Plan Reported history of cardiomyopathy. Per it appears his last known EF is 20%. I do not have an echocardiogram on file with us. We will check a limited echo. Check EKG and troponin series given significant hypoxia today. Diabetes mellitus: Insulin sliding scale History of A-fib: Currently in sinus rhythm, rate between 95 to 127/min. Home dose of metoprolol needs to be confirmed. This documentation was created by [employer] manager warehouse software. Every effort was made to ensure accuracy of manager warehouse. Any obvious errors or omissions should be clarified with the author of the document. All updates discussed with and daughter at bedside Attestations Medical Necessity Statement*: Greater than 2 midnight admission will be needed for management of sepsis, IV antibiotics, metabolic encephalopathy , acute respiratory distress needing BiPAP ventilation, likely from COPD exacerbation Coding Level of Care Code Critical Care >/= 30 minutes Diagnoses Sepsis A41.9 Altered mental status R41.82 Acute UTI N39.0 Cellulitis, pelvic COPD (chronic obstructive pulmonary disease) J44.9
[2023-05-28 21:22] LABS: Troponin(5th) Baseline 29 ng/L (0-15)
[2023-05-28 21:32] LABS: NT Pro B Type Natriuretic Pept 379 pg/mL (0-125); Thyroid Stimulating Hormone 1.34 uIU/mL (0.27-4.20)
[2023-05-28 21:42] LABS: D Dimer 0.69 ug/mIFEU (0-0.59)
[2023-05-28 21:51] LABS: Troponin 5 2HR 28.07 ng/L (0-15)
--- NOTE | 2023-05-28 21:55 | ECG_ITS ---
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 Measurements Intervals [place] Rate: 98 P: 69 SC: 172 QRS: -9 QRSD: 100 T: 45 QT: 344 QTc: 441 Interpretive Statements SINUS RHYTHM Compared to ECG 05/28/2023 18:51:19 Sinus tachycardia no longer present Left-axis deviation no longer present Electronically Signed On 05-29-2023 21:42:42 CDT by Sergo Schwab M.D. [email or web address]
[2023-05-28 22:01] LABS: Troponin 5 2HR Delta -0.93 ABS# (0-10)
[2023-05-28 22:27] LABS: Glucose Point of Care 204 mg/dL (70-110)
[2023-05-28] MEDS: insulin lispro 100 unit/1 mL SUBCUT (22:48)
[2023-05-28] MEDS: dexamethasone 10 mg/mL INJ 6 MG IVP (22:49)
[2023-05-28] MEDS: enoxaparin 40 mg/0.4 mL Syringe SUBCUT (22:49)
--- NOTE | 2023-05-28 22:53 | PC.PHAR ---
Pharmacokinetic dosing service Date: 05/28/23 Time: 2253 Objective: Patient: Sanchez Phillips Floor: ICU-3 Age: 68 yo Serum creatinine: 1.3 mg/dL Height: 72.0 Inches Weight (kg): 112.037 Diagnosis: Relevant medical/social history: Cultures and sensitivities: Other labs: Assessment: IBW (kg): 77.60 Dosing wt(kg): 112.037 Estimated Creatinine clearance (ml/min): 58.9 CRCL method: Cockcroft and Gault using ibw(default). Drug selected: Vancomycin Loading dose (mg): 0 Vd (liters): 100.8 (factor used: 0.9 L/kg) Frank (hr-1): 0.053 Half life (hrs): 13.08 Recommended dose: 1500 mg Interval: 12 hrs Infusion time (hrs): 1.5 Predicted peak (mcg/mL): 30.4 Predicted trough (mcg/mL): 17.43 Total body weight is being used for vancomycin dosing. Renal function is stable [ ] /unstable [ ] Recommendations: Give Vancomycin 1500 mg q 12 hrs with an expected Cpeak of 30.4 mcg/ml and an expected Ctrough of 17.43 mcg/ml Renal dosing of other antibiotics (review renal dosing of other medications and list guidelines here): Thank you for the consult, will continue to follow. Signature: Trice David [facility]
[2023-05-28] MEDS: ipratropium-albuterol 3 mL Neb INHALATION (22:54)
[2023-05-28] MEDS: fluconazole premix 100 MG in empty flexible container 1 EACH 50 MG IV (23:30)
[2023-05-29] VITALS (41 sets, daily range): BP systolic 85–120; BP diastolic 50–67; PULSE 74–95; RESP 0–27; TEMP 36.5–38.7; O2SAT 91–98
--- NOTE | 2023-05-29 00:31 | USCV_ITS ---
Sanchez Phillips Age: 68 Gender: M : 1955 Exam Date: 05/29/2023 06:53 Ordering Phys: Kerri White MD Technologist: Rey Argueta Exam Location: [facility] Indication: BP: 97 / 60 HR: 79 Rhythm: Sinus Technical Quality: MEASUREMENTS (Male / Female) Normal Values 2D ECHO LV Diastolic Diameter PLAX 4.6 cm 4.2 - 5.9 / 3.9 - 5.3 cm LV Systolic Diameter PLAX 2.9 cm IVS Diastolic Thickness 1.0 cm 0.6 - 1.0 / 0.6 - 0.9 cm IVS Systolic Thickness 1.7 cm LVPW Diastolic Thickness 1.3 cm 0.6 - 1.0 / 0.6 - 0.9 cm LVPW Systolic Thickness 1.5 cm LVOT Diameter 2.1 cm LV Ejection Fraction 2D Teich 56.7 % LV Ejection Fraction MOD 2C 72.3 % LV Ejection Fraction 2C AL 73.7 % LA Diameter 3.9 cm M-MODE Aortic Annulus Diameter 3.4 cm LA Ao Ratio MM 1.1 MV E Point Septal Separation 1.2 cm DOPPLER AV Peak Velocity 132.0 cm/s LVOT Peak Velocity 98.0 cm/s AV Area Cont Eq vti 2.6 cm squared AV Area Cont Eq pk 2.5 cm squared MV Area PHT 3.7 cm squared Mitral E to A Ratio 0.7 MV E' Velocity 33.0 cm/s Mitral E to MV E' Ratio 6.5 Mitral E to LV E' Lateral Ratio 5.6 Mitral E to LV E' Septal Ratio 7.8 TR Peak Velocity 138.3 cm/s TR Peak Gradient 7.7 mmHg TV Peak E Velocity 63.0 cm/s Right Atrial Pressure 3.0 mmHg Pulmonary Artery Systolic Pressu 10.7 mmHg RV Acceleration Time 0.1 s FINDINGS Left Ventricle Normal left ventricular size and systolic function, EF 66 %. No regional wall motion abnormalities. Right Ventricle The right ventricle is normal in size and function. Right Atrium The right atrium is normal in size. Left Atrium The left atrium is normal in size. Mitral Valve Thickened mitral valve. Trace mitral valve regurgitation. Aortic Valve Thickened aortic valve. Tricuspid Valve Trace tricuspid valve regurgitation. Pulmonic Valve Pulmonic valve not well visualized. Pericardium Normal pericardium without effusion. Aorta Normal ascending aorta dimension. IVC The inferior vena cava appears normal. CONCLUSIONS Normal left ventricular size and systolic function, EF 66 %. No regional wall motion abnormalities. Thickened mitral valve. Trace mitral valve regurgitation. Thickened aortic valve. Trace tricuspid valve regurgitation. There is no pericardial effusion. There are no intracardiac masses. No similar previous studies are available for comparison Dr Sergo Schwab MD FAC (Electronically Signed) Final Date: 30 May 2023 19:40 S
[2023-05-29] MEDS: ipratropium-albuterol 3 mL Neb INHALATION ×4 (02:45→19:23)
--- NOTE | 2023-05-29 02:50 | ECG_ITS ---
[facility] Test Date: 2023-05-29 Pat Name: Sanchez Phillips Department: Room: [facility] Gender: Male Service Order Expediter: : 1955 Requested By: Kerri White Order Number: [id number] Sumanth MD: Sergo Schwab M.D. Measurements Intervals [place] Rate: 85 P: 77 KS: 178 QRS: -15 QRSD: 97 T: 27 QT: 383 QTc: 456 Interpretive Statements SINUS RHYTHM Compared to ECG 05/28/2023 21:55:03 No significant changes Electronically Signed On 05-29-2023 21:43:24 CDT by Sergo Schwab M.D. [id number]
[2023-05-29] MEDS: piperacillin-tazobactam 3.375 GM in sodium chloride 0.9% (plus) 50 ML IV ×3 (03:43→19:22)
[2023-05-29 03:45] LABS: Basophils # 0.1 10^3/uL (0.0-0.1); Basophils % 0.3 %; Eosinophils % 0.2 %; Hematocrit 47.5 % (42.0-52.0); Hemoglobin 14.6 g/dL (11.7-16.6); Lymphocytes # 0.8 10^3/uL (0.8-4.8); Lymphocytes % 2.9 %; Mean Corpuscular HGB Conc 30.7 g/dL (30.0-36.0); Mean Corpuscular Volume 97.5 fl (80-94); Mean Platelet Volume 11.6 fL (7.4-10.4); Monocytes # 0.7 10^3/uL (0.2-0.9); Monocytes % 2.8 %; Nucleated Red Blood Cells % 0.1 %; Platelet Count 149 10^3/cmm (130-400); Red Blood Count 4.87 10^6/uL (4.1-5.3); Red Cell Distribution Width 14.2 % (12.1-15.1); White Blood Count 26.2 10^3/uL (4.0-10.0)
[2023-05-29 04:05] LABS: Troponin 5 6HR 28.96 ng/L (0-15)
[2023-05-29 04:07] LABS: Troponin 5 6HR Delta -0.04 ng/L (0-12)
[2023-05-29 04:09] LABS: Alanine Aminotransferase 18 U/L (0-41); Alkaline Phosphatase 130 U/L (40-130); Anion Gap 17.2 (5-19); Aspartate Amino Transferase 21 U/L (0-40); Blood Urea Nitrogen 34 mg/dL (8-23); Calcium 8.4 mg/dL (8.5-10.5); Carbon Dioxide 28 mmol/L (22-29); Chloride 99 mmol/L (98-107); Globulin 3.8 g/dL (1.3-4.6); Glomerular Filtration Rate 43.1 mL/min (90-130); Glucose 149 mg/dL (65-115); Osmolality Calculated 300 mOsm/kg (285-295); Potassium 4.2 mmol/L (3.5-5.1); Sodium 140 mmol/L (136-145); Total Bilirubin 0.4 mg/dL (0.15-1.2); Total Protein 6.8 g/dL (6.6-8.7)
[2023-05-29 07:10] LABS: Glucose Point of Care 260 mg/dL (70-110)
[2023-05-29] MEDS: budesonide 0.5 mg/2 mL Neb INHALATION ×3 (07:35→19:23)
[2023-05-29] MEDS: insulin lispro 100 unit/1 mL SUBCUT ×4 (08:02→20:34)
[2023-05-29] MEDS: vancomycin 1,500 MG/300 ML PIGGYBACK 200 MG IV ×2 (08:04→19:22)
[2023-05-29] MEDS: levothyroxine 50 mcg Tablet PO (09:31)
[2023-05-29] MEDS: duloxetine 60 mg Capsule PO (09:31)
[2023-05-29] MEDS: pantoprazole DR 40 mg Tablet PO (09:31)
[2023-05-29] MEDS: apixaban 5 mg Tablet PO ×2 (09:31→20:34)
--- NOTE | 2023-05-29 09:50 | PC.PHAR ---
pt states his takes care of his medications-pts noemi [phone] verified pts medications-rx filled 05/17/23 30d/s for bumetanide 1mg TAKE ONE TABLET BY MOUTH EVERY DAY NEEDED FOR weight gain of ONE POUND IN THREE DAYS, OR THREE POUNDS IN FIVE DAYS-pts states the pt takes 1mg qam-pts states pt uses hydroxyzine hcl 25mg tid prn states it was dced when pt was at [facility] and then states when pt was sent home he used prn-rx filled 03/27/23 novolog flexpen 3 - 5 unit subcutaneously on sliding scale tid (max 12 units per day) pts states just does ss tid-pts states the pt uses lantus 60 units in the am ext med history shows filled 05/17/23 30d/s 60 units qpm-pts states [facility] dced pts amlodipine 5mg daily filled 03/06/23 30d/s-notes are made in the pharmacy comments
--- NOTE | 2023-05-29 10:07 | PC.CHAP ---
Pastoral Care Encounter/Spiritual Assessment Type of Contact [] Declined necktie stitcher visit [] Patient/Family/Request visit [] Outpatient visit [] Follow-up visit [] Physician referral [] Code/Alert [x] Routine visit [] Staff referral [] Actively dying [x] Patient sleeping [] Family support [] [] Out of room [] Palliative care [] [] Receiving care in room [] Pre-surgical visit [] Trauma [] Long length of stay [] ICU visit [x] Other: mask Relational/Emotional Strength [] Patient feels connected with others/family/visitors/staff [] Distress [] Loneliness/isolation [] Abandonment Spirituality of Patient [] Person of Shaina [] Attends Protestant of their Shaina [] Believes in Prayer [] Reads Bible or Baptist materials [] There are Spiritual issues to be addressed 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 [x] Prayer [] Active listening [] Non-anxious presence [] Spiritual/emotional support [] Crisis/trauma care [] Spiritual counseling [] Bereavement support [] Provided bereavement packet [] Provided Bible/devotional materials [] Provided toy/stuffed animal, coloring book to patient or family member [] Provided Communion [] Anointing/Telferner [] Salvation [x] Completed spiritual assessment [] Other: Impact on Illness or Injury [] Angry [] Fearful [] Anxious [] Often cries [] Exhaustion [] Unable to work [] Unable to attend gnosticism [] Unable to walk/stand [] Unable to read [] Unable to drive [] Unable to eat/drink [] Unable to sleep [] Unable to be with family [] Patient intubated [] Other: Summary Time spent with patient
[2023-05-29] MEDS: clotrimazole 1% cream 30 gm 1 APPLIC TOPICAL ×2 (10:42→17:30)
[2023-05-29 11:10] LABS: Glucose Point of Care 281 mg/dL (70-110)
[2023-05-29 11:22] LABS: Bacillus cereus group Not Detected (NOT DETECT); Bacillus subtillis group Not Detected (NOT DETECT); Corynebacterium Not Detected (NOT DETECT); Cutibacterium acnes (P.acnes) Not Detected (NOT DETECT); Enterococcus Not Detected (NOT DETECT); Enterococcus faecalis Not Detected (NOT DETECT); Enterococcus faecium Not Detected (NOT DETECT); Lactobacillus species Not Detected (NOT DETECT); Listeria Not Detected (NOT DETECT); Listeria monocytogenes Not Detected (NOT DETECT); Micrococcus Not Detected (NOT DETECT); Pan Candida Not Detected (NOT DETECT); Pan Gram-Negative Not Detected (NOT DETECT); Staphylococcus epidermidis Not Detected (NOT DETECT); Staphylococcus lugdunensis Not Detected (NOT DETECT); Staphylococcus species Not Detected (NOT DETECT); Streptococcus agalactiae Not Detected (NOT DETECT); Streptococcus anginosus group Not Detected (NOT DETECT); Streptococcus pneumoniae Not Detected (NOT DETECT); Streptococcus pyogenes Not Detected (NOT DETECT); Streptococcus species Not Detected (NOT DETECT)
[2023-05-29 16:26] LABS: Glucose Point of Care 279 mg/dL (70-110)
--- NOTE | 2023-05-29 17:54 | P.PN_ITS ---
Subjective Subjective: Patient was seen and examined this morning has remained afebrile overnight, white cell count has gone up to 26,000 as compared to 14.2 on admission, patient has received 1 dose of IV dexamethasone. Currently patient is doing fine on BiPAP. Blood and urine culture has been drawn, on broad-spectrum antibiotics. Altered mental status has resolved, currently holding decent conversation, wants to go home. Have advised him to stay in hospital pending work-up, 2D echo has been done, results awaited. Currently appears to be euvolemic, IV fluids have been discontinued. Medications: Medication Review Details: Generic Name Dose Route Start Last Admin Trade Name Freq PRN Reason Stop Dose Admin Albuterol/Ipratrop ium 3 ml 05/28/23 22:04 05/29/23 13:20 Ipratropium-Albu terol 3 Ml Neb INHALATION 3 ml Q6H.RESP DAPHNE Administration Amlodipine Besylat e 5 mg 05/29/23 09:00 05/29/23 08:54 Amlodipine 5 Mg Tablet PO Not Given DAILY DAPHNE Apixaban 5 mg 05/29/23 09:00 05/29/23 09:31 Apixaban 5 Mg Ta blet PO 5 mg BID@0900,2100 DAPHNE Administration Atorvastatin Calci um 40 mg 05/28/23 21:00 05/28/23 22:47 Atorvastatin 40 Mg Tablet PO Not Given BEDTIME DAPHNE Budesonide 0.5 mg 05/29/23 09:00 05/29/23 13:20 Budesonide 0.5 M g/2 Ml Neb INHALATION 0.5 mg BID.RESPIRATORY S CH Administration Clotrimazole 1 applic 05/29/23 09:00 05/29/23 17:30 Clotrimazole 1% Cream 30 Gm TOPICAL 1 applic BID DAPHNE Administration Dexamethasone 6 mg 05/28/23 21:15 05/28/23 22:49 Dexamethasone 10 Mg/Ml Inj IVP 6 mg Q24H DAPHNE Administration Duloxetine HCl 60 mg 05/29/23 09:00 05/29/23 09:31 Duloxetine 60 Mg Capsule PO 60 mg DAILY DAPHNE Administration Piperacillin Sod/T azobactam 50 mls @ 12.5 mls /hr 05/29/23 04:00 05/29/23 15:43 Sod 3.375 gm/ So dium Chloride IV Infused Q8H DAPHNE Infusion Protocol Fluconazole 100 mg / N/A 50 mls @ 50 mls/h r 05/28/23 22:04 05/29/23 05:55 IV Infused Q24H DAPHNE Infusion Vancomycin/PEG/NAD A/Lysine/Water 1,500 mg in 300 m ls @ 200 mls/hr 05/29/23 08:00 05/29/23 09:37 Vancocin IV Infused Q12H DAPHNE Infusion Insulin Human Lisp ro 0 unit 05/28/23 21:00 05/29/23 17:29 Insulin Lispro 1 00 Unit/1 Ml SUBCUT 10 unit WM&BEDTIME DAPHNE Administration Protocol Levothyroxine Sodi um 50 mcg 05/29/23 09:00 05/29/23 09:31 Levothyroxine 50 Mcg Tablet PO 50 mcg DAILY DAPHNE Administration Pantoprazole Sodiu m 40 mg 05/29/23 09:00 05/29/23 09:[address] 40 Mg Tablet PO 40 mg DAILY DAPHNE Administration Vitals/I&O/Wt Last Vital Signs Temp 98.1 F 05/29/23 16:00 Pulse 84 05/29/23 16:00 Resp 7 L 05/29/23 16:00 BP 120/63 05/29/23 16:00 Pulse Ox 95 05/29/23 16:00 O2 Del Method High Flow Nasal Cannula 05/29/23 16:00 O2 Flow Rate 14 05/29/23 16:00 FiO2 50 05/29/23 13:23 05/29/23 05/29/23 05/29/23 06:59 14:59 22:59 Intake Total 50 / 1850 350 / 350 50 / 400 Output Total 775 / 775 425 / 425 Balance -725 / 1075 -75 / -75 50 / -25 Weight last 48 hrs Weight 112.037 kg Physical Exam HENMT: COMMON NORMALS: normocephalic and atraumatic HEAD & SCALP: normocephalic and atraumatic Resp: COMMON NORMALS: clear to auscultation bilaterally AUSCULTATION: clear to auscultation bilaterally Cardio: COMMON NORMALS: regular rate, regular rhythm, S1 normal heart sound present, S2 normal heart sound present, No gallops present (Cardio), No murmurs present (Cardio), No rub (Cardio) and Peripheral pulses 2+ throughout RATE: regular rate RHYTHM: regular rhythm HEART SOUNDS: S1 normal heart sound present and S2 normal heart sound present PERIPHERAL PULSES: Peripheral pulses 2+ throughout GI: COMMON NORMALS: Normal to inspection, nondistended, normoactive bowel sounds present, Soft to palpation, non-tender, No hepatosplenomegaly present and no masses AUSCULTATION: Yes normoactive bowel sounds PALPATION: Yes Soft to palpation and Yes No hepatosplenomegaly present RECTAL EXAM: Yes deferred Extremity: COMMON NORMALS: no clubbing, cyanosis or edema and no pedal edema Urinary Catheter Management: Navas: Cath Placed During This Visit: yes Reason for Continuing Indwelling Catheter: Accurate Measurement of Urinary Output in Critically Ill Patients Urinary Catheter Date of Insertion: 05/28/23 Urinary Catheter Time of Insertion: 19:22 Data 05/29/23 02:40 05/29/23 02:40 Micro: Microbiology 05/28/23 18:47 Blood Culture - Preliminary Blood 05/28/23 18:45 Blood Culture - Preliminary Blood A&P Assessment and plan (1) Sepsis: 68-year-old male with a past medical history of COPD diabetes, possible cardiomyopathy, 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 Sepsis criteria is met with fever, leukocytosis, tachypnea, tachycardia and en dorgan dysfunction by way of metabolic encephalopathy. Source appears to be genitourinary infection. Lactate 1.4. Been given sepsis bolus in the emergency room, further fluids have not been continued due to reported history of cardiomyopathy, patient currently appearing to be hypervolemic. Started on empiric antibiotic coverage with piperacillin/tazobactam and IV vancomycin. Add fluconazole 100 mg IV daily due to severe intertrigo CT of the pelvis without any focal gas or abscess. Noted changes of cellulitis as also seen on clinical exam. UA with positive nitrate, trace leukocyte esterase, 40-55 WBCs. Navas catheter has been placed in the emergency room. Pending urine culture. Blood culture taken prior to starting antibiotics. (2) Altered mental status: Suspect metabolic encephalopathy from sepsis. Also noted to have hypercapnia on his ABG today, however pH is 7.39, appearing to be compensated chronic respiratory failure. (3) Acute UTI: Acute complicated UTI, management as above (4) Cellulitis, pelvic: Management as above, currently on empiric antibiotics (5) COPD (chronic obstructive pulmonary disease): COPD with acute exacerbation and respiratory distress necessitating BiPAP ventilation Diffuse bilateral wheezing on exam. DuoNeb every 6 hours and budesonide every 12 hours scheduled nebulization. Titrate to maintain saturation of around 90%. Dexamethasone 6 mg IV daily, aim for short course until clinical improvement Low probability of PE since patient is on Eliquis for history of A-fib. Plan Reported history of cardiomyopathy. Per it appears his last known EF is 20%. I do not have an echocardiogram on file with us. We will check a limited echo. Check EKG and troponin series given significant hypoxia today. Diabetes mellitus: Insulin sliding scale History of A-fib: Currently in sinus rhythm, rate between 95 to 127/min. Home dose of metoprolol needs to be confirmed. Attestations Medical Necessity Statement*: Needs to be in hospital for the management of sepsis. Coding Level of Care Code Acute Code for [facility] Fwd Diagnoses Sepsis A41.9 Altered mental status R41.82 Acute UTI N39.0 Cellulitis, pelvic COPD (chronic obstructive pulmonary disease) J44.9
--- NOTE | 2023-05-29 18:25 | PC.NURSE ---
Shift summary: Overall uneventful shift. Patient currently off bipap to GA at 13 and eating his evening meal. Speech evaluated and recommended a mechanical soft diet. Patient state he is feeling better and is more alert this evening, speaking with daughter at bedside. Physical therapy plans to work with patient tomorrow and achieve todays goal of getting up to recliner. Patient refuses positioning most of the time offered despite education of pressure injury prevention. Patient vitals have remained stable, see charting. Patient frequently states he wants to go home. This nurse spoke with daughter at bedside who requested possible home health for wound care and equipment. See MAR for medication administrations.
[2023-05-29 20:32] LABS: Glucose Point of Care 350 mg/dL (70-110)
[2023-05-29] MEDS: atorvastatin 40 mg Tablet PO (20:34)
[2023-05-29] MEDS: dexamethasone 10 mg/mL INJ 6 MG IVP (20:34)
[2023-05-29] MEDS: fluconazole premix 100 MG in empty flexible container 1 EACH 50 MG IV (21:50)
[2023-05-30] VITALS (23 sets, daily range): BP systolic 109–155; BP diastolic 59–86; PULSE 0–96; RESP 16–25; TEMP 36.5–37.2; O2SAT 87–97
[2023-05-30] MEDS: ipratropium-albuterol 3 mL Neb INHALATION ×3 (02:58→13:28)
[2023-05-30] MEDS: piperacillin-tazobactam 3.375 GM in sodium chloride 0.9% (plus) 50 ML IV ×3 (03:06→20:44)
[2023-05-30 07:32] LABS: Glucose Point of Care 269 mg/dL (70-110)
[2023-05-30] MEDS: vancomycin 1,500 MG/300 ML PIGGYBACK 200 MG IV (07:32)
[2023-05-30] MEDS: amlodipine 5 mg Tablet PO (08:31)
[2023-05-30] MEDS: levothyroxine 50 mcg Tablet PO (08:31)
[2023-05-30] MEDS: apixaban 5 mg Tablet PO ×2 (08:31→21:18)
[2023-05-30] MEDS: insulin lispro 100 unit/1 mL SUBCUT ×4 (08:31→20:43)
[2023-05-30] MEDS: pantoprazole DR 40 mg Tablet PO (08:31)
[2023-05-30] MEDS: clotrimazole 1% cream 30 gm 1 APPLIC TOPICAL ×2 (08:31→19:01)
[2023-05-30] MEDS: duloxetine 60 mg Capsule PO (08:31)
[2023-05-30] MEDS: budesonide 0.5 mg/2 mL Neb INHALATION (09:04)
[2023-05-30 09:21] LABS: Basophils % 0.2 %; Hematocrit 45.5 % (42.0-52.0); Hemoglobin 13.8 g/dL (11.7-16.6); Lymphocytes # 1.2 10^3/uL (0.8-4.8); Mean Corpuscular HGB Conc 30.3 g/dL (30.0-36.0); Mean Corpuscular Hemoglobin 30.3 pg (28.0-34.0); Mean Corpuscular Volume 99.8 fl (80-94); Mean Platelet Volume 11.2 fL (7.4-10.4); Monocytes # 0.3 10^3/uL (0.2-0.9); Monocytes % 1.7 %; Neutrophils # 15.09 10^3/uL (1.8-7.7); Neutrophils % 90.4 %; Nucleated Red Blood Cells % 0 %; Platelet Count 146 10^3/cmm (130-400); Red Blood Count 4.56 10^6/uL (4.1-5.3); Red Cell Distribution Width 14.5 % (12.1-15.1); White Blood Count 16.7 10^3/uL (4.0-10.0)
[2023-05-30 09:53] LABS: Anion Gap 15.8 (5-19); Blood Urea Nitrogen 33 mg/dL (8-23); Calcium 8.4 mg/dL (8.5-10.5); Carbon Dioxide 27 mmol/L (22-29); Chloride 99 mmol/L (98-107); Glomerular Filtration Rate 46.4 mL/min (90-130); Glucose 255 mg/dL (65-115); Osmolality Calculated 300 mOsm/kg (285-295); Potassium 4.8 mmol/L (3.5-5.1); Sodium 137 mmol/L (136-145)
[2023-05-30 12:00] LABS: Glucose Point of Care 320 mg/dL (70-110)
--- NOTE | 2023-05-30 12:07 | PM.PN ---
Subjective Subjective: Patient was seen and examined this morning has remained afebrile in the last 24 hours, WBC is trending down. Medications: Medication Review Details: Generic Name Dose Route Start Last Admin Trade Name Bing PRN Reason Stop Dose Admin Albuterol/Ipratrop ium 3 ml 05/28/23 22:04 05/30/23 09:04 Ipratropium-Albu terol 3 Ml Neb INHALATION 3 ml Q6H.RESP DAPHNE Administration Amlodipine Besylat e 5 mg 05/29/23 09:00 05/30/23 08:31 Amlodipine 5 Mg Tablet PO 5 mg DAILY DAPHNE Administration Apixaban 5 mg 05/29/23 09:00 05/30/23 08:31 Apixaban 5 Mg Ta blet PO 5 mg BID@0900,2100 DAPHNE Administration Atorvastatin Calci um 40 mg 05/28/23 21:00 05/29/23 20:34 Atorvastatin 40 Mg Tablet PO 40 mg BEDTIME DAPHNE Administration Budesonide 0.5 mg 05/29/23 09:00 05/30/23 09:04 Budesonide 0.5 M g/2 Ml Neb INHALATION 0.5 mg BID.RESPIRATORY S CH Administration Clotrimazole 1 applic 05/29/23 09:00 05/30/23 08:31 Clotrimazole 1% Cream 30 Gm TOPICAL 1 applic BID DAPHNE Administration Dexamethasone 6 mg 05/28/23 21:15 05/29/23 20:34 Dexamethasone 10 Mg/Ml Inj IVP 6 mg Q24H DAPHNE Administration Duloxetine HCl 60 mg 05/29/23 09:00 05/30/23 08:31 Duloxetine 60 Mg Capsule PO 60 mg DAILY DAPHNE Administration Piperacillin Sod/T azobactam 50 mls @ 12.5 mls /hr 05/29/23 04:00 05/30/23 09:32 Sod 3.375 gm/ So dium Chloride IV Infused Q8H DAPHNE Infusion Protocol Fluconazole 100 mg / N/A 50 mls @ 50 mls/h r 05/28/23 22:04 05/30/23 09:32 IV Infused Q24H DAPHNE Infusion Vancomycin/PEG/NAD A/Lysine/Water 1,500 mg in 300 m ls @ 200 mls/hr 05/29/23 08:00 05/30/23 09:32 Vancocin IV Infused Q12H DAPHNE Infusion Insulin Human Lisp ro 0 unit 07/16/23 21:00 05/30/23 08:31 Insulin Lispro 1 00 Unit/1 Ml SUBCUT 10 unit WM&BEDTIME DAPHNE Administration Protocol Levothyroxine Sodi um 50 mcg 05/29/23 09:00 05/30/23 08:31 Levothyroxine 50 Mcg Tablet PO 50 mcg DAILY DAPHNE Administration Pantoprazole Sodiu m 40 mg 05/29/23 09:00 05/30/23 08:[address] 40 Mg Tablet PO 40 mg DAILY DAPHNE Administration Vitals/I&O/Wt Last Vital Signs Temp 97.7 F 05/30/23 04:38 Pulse 86 05/30/23 09:28 Resp 24 H 05/30/23 09:28 BP 125/72 05/30/23 09:28 Pulse Ox 90 05/30/23 09:28 O2 Del Method Nasal Cannula 05/30/23 09:28 O2 Flow Rate 14 05/30/23 09:28 FiO2 50 05/30/23 08:00 05/29/23 05/30/23 05/30/23 22:59 06:59 14:59 Intake Total 1100 / 1450 50 / 1500 700 / 700 Output Total 675 / 1100 1025 / 2125 450 / 450 Balance 425 / 350 -975 / -625 250 / 250 Weight last 48 hrs Weight 112.037 kg Physical Exam HENMT: COMMON NORMALS: normocephalic and atraumatic HEAD & SCALP: normocephalic and atraumatic Resp: COMMON NORMALS: clear to auscultation bilaterally AUSCULTATION: clear to auscultation bilaterally Cardio: COMMON NORMALS: regular rate, regular rhythm, S1 normal heart sound present, S2 normal heart sound present, No gallops present (Cardio), No murmurs present (Cardio), No rub (Cardio) and Peripheral pulses 2+ throughout RATE: regular rate RHYTHM: regular rhythm HEART SOUNDS: S1 normal heart sound present and S2 normal heart sound present PERIPHERAL PULSES: Peripheral pulses 2+ throughout GI: COMMON NORMALS: Normal to inspection, nondistended, normoactive bowel sounds present, Soft to palpation, non-tender, No hepatosplenomegaly present and no masses AUSCULTATION: Yes normoactive bowel sounds PALPATION: Yes Soft to palpation and Yes No hepatosplenomegaly present RECTAL EXAM: Yes deferred Extremity: COMMON NORMALS: no clubbing, cyanosis or edema and no pedal edema Urinary Catheter Management: Navas: Cath Placed During This Visit: yes Reason for Continuing Indwelling Catheter: Accurate Measurement of Urinary Output in Critically Ill Patients Urinary Catheter Date of Insertion: 05/28/23 Urinary Catheter Time of Insertion: 19:22 Data 05/30/23 09:10 05/30/23 09:10 Micro: Microbiology 05/28/23 19:17 Urine Culture - Preliminary Urine,Clean Catch Gram Negative Rods 05/28/23 18:47 Blood Culture - Preliminary Blood 05/28/23 18:45 Blood Culture - Preliminary Blood A&P Assessment and plan (1) Sepsis: 68-year-old male with a past medical history of COPD diabetes, possible cardiomyopathy, 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 Sepsis criteria is met with fever, leukocytosis, tachypnea, tachycardia and endorgan dysfunction by way of metabolic encephalopathy. Source appears to be genitourinary infection. Lactate 1.4. Been given sepsis bolus in the emergency room, further fluids have not been continued due to reported history of cardiomyopathy. Blood culture:4/4 bottles positive for group G Streptococcus Urine culture gram-negative lexie Follow repeat blood culture Follow 2D echo: CT of the pelvis without any focal gas or abscess. Noted changes of cellulitis as also seen on clinical exam. UA with positive nitrate, trace leukocyte esterase, 40-55 WBCs. Navas catheter has been placed in the emergency room Currently he is covered with broad-spectrum antibiotics namely vancomycin and Zosyn, he is also on fluconazole 100 mg IV daily due to severe intertrigo. (2) Altered mental status: Suspect metabolic encephalopathy from sepsis. Also noted to have hypercapnia on his ABG today, however pH is 7.39, appearing to be compensated chronic respiratory failure. Currently has resolved. (3) Acute UTI: Acute complicated UTI, management as above (4) Cellulitis, pelvic: Management as above, currently on empiric antibiotics (5) COPD (chronic obstructive pulmonary disease): COPD with acute exacerbation and respiratory distress necessitating BiPAP ventilation Diffuse bilateral wheezing on exam. DuoNeb every 6 hours and budesonide every 12 hours scheduled nebulization. Titrate to maintain saturation of around 90%. Dexamethasone 6 mg IV daily, aim for short course until clinical improvement Low probability of PE since patient is on Eliquis for history of A-fib. Plan Reported history of cardiomyopathy. Per it appears his last known EF is 20%. Follow repeat 2D echo Diabetes mellitus: Insulin sliding scale History of A-fib: Currently in sinus rhythm, rate between 95 to 127/min. Continue metoprolol Continue Eliquis for anticoagulant Attestations Medical Necessity Statement*: Needs to be in hospital for the management of sepsis, need for IV antibiotics. Coding Level of Care Code Acute Code for [facility] Fw Diagnoses Sepsis A41.9 Altered mental status R41.82 Acute UTI N39.0 Cellulitis, pelvic COPD (chronic obstructive pulmonary disease) J44.9
[2023-05-30 17:07] LABS: Glucose Point of Care 276 mg/dL (70-110)
--- NOTE | 2023-05-30 18:38 | PC.NURSE ---
Shift SUmmary: uneventful shift. Patient was up to a chair for about 5 hours No fever. Received antibiotics as ordered.
--- NOTE | 2023-05-30 18:54 | USCV_ITS ---
Sanchez Phillips Age: 68 Gender: M : 1955 Exam Date: 05/30/2023 19:30 Ordering Phys: Cruz Spears MD Technologist: VANESA Exam Location: [facility] – [place] Indication: sepsis. History of chronic necrotizing fasciitis. 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 No history of cardiac intervention. Patient is refusing OPTISON. BP: 120 / 72 HR: 84 Rhythm: Sinus Technical Quality: Suboptimal - Patient refusing OPTISON MEASUREMENTS (Male / Female) Normal Values 2D ECHO LV Diastolic Diameter PLAX 5.5 cm 4.2 - 5.9 / 3.9 - 5.3 cm LV Systolic Diameter PLAX 3.6 cm IVS Diastolic Thickness 1.7 cm 0.6 - 1.0 / 0.6 - 0.9 cm IVS Systolic Thickness 1.6 cm LVPW Diastolic Thickness 1.0 cm 0.6 - 1.0 / 0.6 - 0.9 cm LVPW Systolic Thickness 1.5 cm LVOT Diameter 2.1 cm LV Ejection Fraction 2D Teich 62.9 % LV Ejection Fraction MOD 2C 54.8 % LV Ejection Fraction 2C AL 56.6 % LA Diameter 4.1 cm LA Width 3.5 cm LA Height 5.8 cm RA Width 3.9 cm RA Height 5.0 cm Aorta at Sinotubular Diameter 3.0 cm M-MODE Aortic Annulus Diameter 3.5 cm LA Ao Ratio MM 1.1 DOPPLER AV Peak Velocity 134.0 cm/s LVOT Peak Velocity 93.0 cm/s AV Area Cont Eq vti 2.4 cm squared AV Area Cont Eq pk 2.5 cm squared MV Area PHT 4.8 cm squared Mitral E to A Ratio 0.8 MV E' Velocity 41.0 cm/s Mitral E to MV E' Ratio 9.8 Mitral E to LV E' Lateral Ratio 9.4 Mitral E to LV E' Septal Ratio 10.2 TV Peak E Velocity 28.0 cm/s PV Peak Velocity 85.0 cm/s RV Acceleration Time 0.1 s RV Ejection Time 0.3 s RV AcT/ET 0.2 FINDINGS Left Ventricle Normal left ventricular size with a slightly diminished ejection fraction of 52%. Relative hypokinesia of the septum.Grade I/IV diastolic dysfunction (abnormal relaxation filling pattern), normal to mildly elevated filling pressures. Right Ventricle The right ventricle is normal in size and function. Right Atrium The right atrium is normal in size. Left Atrium Mildly increased left atrial size. Mitral Valve Thickened mitral valve. Mild mitral annular calcification. Aortic Valve No gross abnormalities noted Tricuspid Valve No gross abnormalities noted Pulmonic Valve Pulmonic valve not well visualized. Pericardium Normal pericardium without effusion. Aorta Normal ascending aorta dimension. IVC The inferior vena cava appears normal. CONCLUSIONS Normal left ventricular size with a slightly diminished ejection fraction of 52%. Relative hypokinesia of the septum.Grade I/IV diastolic dysfunction (abnormal relaxation filling pattern), normal to mildly elevated filling pressures. Thickened mitral valve. Mild mitral annular calcification. Mildly increased left atrial size. There is no pericardial effusion. There are no intracardiac masses. Compared to the study from 05/29/2013, there is slight drop in the LV ejection fraction Dr Sergo Schwab MD FAC (Electronically Signed) Final Date: 30 May 2023 20:39 S
[2023-05-30 20:15] LABS: Vancomycin Trough 26.2 ug/mL (10-15)
[2023-05-30 20:36] LABS: Glucose Point of Care 240 mg/dL (70-110)
[2023-05-30] MEDS: dexamethasone 10 mg/mL INJ 6 MG IVP (20:43)
[2023-05-30] MEDS: atorvastatin 40 mg Tablet PO (20:44)
[2023-05-30] MEDS: metoprolol succinate ER (24 HR) 50 mg Tablet PO (20:44)
[2023-05-30] MEDS: fluconazole premix 100 MG in empty flexible container 1 EACH 50 MG IV (22:48)
[2023-05-30] MEDS: trazodone 100 mg Tablet PO (23:39)
[2023-05-31] VITALS (27 sets, daily range): BP systolic 120–154; BP diastolic 70–88; PULSE 61–83; RESP 13–27; TEMP 36.4–36.7; O2SAT 91–95
[2023-05-31] MEDS: vancomycin 1,500 MG/300 ML PIGGYBACK 200 MG IV (02:24)
[2023-05-31] MEDS: ipratropium-albuterol 3 mL Neb INHALATION ×3 (03:06→20:42)
[2023-05-31 03:25] LABS: Basophils % 0.2 %; Hematocrit 43.7 % (42.0-52.0); Hemoglobin 13.7 g/dL (11.7-16.6); Lymphocytes # 1.1 10^3/uL (0.8-4.8); Lymphocytes % 8.8 %; Mean Corpuscular HGB Conc 31.4 g/dL (30.0-36.0); Mean Corpuscular Hemoglobin 30.9 pg (28.0-34.0); Mean Corpuscular Volume 98.6 fl (80-94); Monocytes # 0.3 10^3/uL (0.2-0.9); Monocytes % 2.5 %; Neutrophils # 11.01 10^3/uL (1.8-7.7); Neutrophils % 87.5 %; Nucleated Red Blood Cells % 0.2 %; Platelet Count 142 10^3/cmm (130-400); Red Blood Count 4.43 10^6/uL (4.1-5.3); Red Cell Distribution Width 14.1 % (12.1-15.1); White Blood Count 12.6 10^3/uL (4.0-10.0)
[2023-05-31] MEDS: piperacillin-tazobactam 3.375 GM in sodium chloride 0.9% (plus) 50 ML IV ×2 (03:56→12:15)
[2023-05-31 03:59] LABS: Anion Gap 13.2 (5-19); Blood Urea Nitrogen 36 mg/dL (8-23); Carbon Dioxide 26 mmol/L (22-29); Chloride 102 mmol/L (98-107); Glomerular Filtration Rate 54.7 mL/min (90-130); Glucose 258 mg/dL (65-115); Osmolality Calculated 299 mOsm/kg (285-295); Potassium 5.2 mmol/L (3.5-5.1); Sodium 136 mmol/L (136-145)
--- NOTE | 2023-05-31 06:10 | PC.NURSE ---
Patient has been uncomfortable majoirty of night. Requested something to help with sleeping as he takes trazadone at home at bedtime. Orders received from Dr. Britton for 100 mg of trazadone. Patient was finally able to sleep. Patient also very persistent on refusal or bath and turning in bed. Bed had been tilted but within 5 minutes request made to return back to supine and refusal of placement of pillows.
[2023-05-31] MEDS: metoprolol succinate ER (24 HR) 50 mg Tablet PO ×2 (06:20→18:43)
[2023-05-31 08:40] LABS: Glucose Point of Care 247 mg/dL (70-110)
[2023-05-31] MEDS: amlodipine 5 mg Tablet PO (08:44)
[2023-05-31] MEDS: duloxetine 60 mg Capsule PO (08:44)
[2023-05-31] MEDS: apixaban 5 mg Tablet PO ×2 (08:44→20:28)
[2023-05-31] MEDS: levothyroxine 50 mcg Tablet PO (08:44)
[2023-05-31] MEDS: pantoprazole DR 40 mg Tablet PO (08:44)
[2023-05-31] MEDS: insulin lispro 100 unit/1 mL SUBCUT ×4 (08:44→20:28)
[2023-05-31] MEDS: clotrimazole 1% cream 30 gm 1 APPLIC TOPICAL ×2 (08:45→17:48)
--- NOTE | 2023-05-31 12:00 | PC.SOCIAL ---
IMM update IMM updated with patient's . Verbalized an understanding. Initialled, dated, timed, and placed in chart.
[2023-05-31 12:54] LABS: Glucose Point of Care 225 mg/dL (70-110)
[2023-05-31 18:08] LABS: Glucose Point of Care 197 mg/dL (70-110)
--- NOTE | 2023-05-31 18:14 | PM.PN ---
Subjective Subjective: Patient was seen and examined this morning has remained afebrile. Repeat blood cultures been drawn this morning. Medications: Medication Review Details: Generic Name Dose Route Start Last Admin Trade Name Bing PRN Reason Stop Dose Admin Albuterol/Ipratrop ium 3 ml 05/28/23 22:04 05/31/23 13:42 Ipratropium-Albu terol 3 Ml Neb INHALATION 3 ml Q6H.RESP DAPHNE Administration Amlodipine Besylat e 5 mg 05/29/23 09:00 05/31/23 08:44 Amlodipine 5 Mg Tablet PO 5 mg DAILY DAPHNE Administration Apixaban 5 mg 05/29/23 09:00 05/31/23 08:44 Apixaban 5 Mg Ta blet PO 5 mg BID@0900,2100 DAPHNE Administration Atorvastatin Calci um 40 mg 05/28/23 21:00 05/30/23 20:44 Atorvastatin 40 Mg Tablet PO 40 mg BEDTIME DAPHNE Administration Budesonide 0.5 mg 05/29/23 09:00 05/31/23 08:43 Budesonide 0.5 M g/2 Ml Neb INHALATION Not Given BID.RESPIRATORY S CH Clotrimazole 1 applic 05/29/23 09:00 05/31/23 17:48 Clotrimazole 1% Cream 30 Gm TOPICAL 1 applic BID DAPHNE Administration Dexamethasone 6 mg 05/28/23 21:15 05/30/23 20:43 Dexamethasone 10 Mg/Ml Inj IVP 6 mg Q24H DAPHNE Administration Duloxetine HCl 60 mg 05/29/23 09:00 05/31/23 08:44 Duloxetine 60 Mg Capsule PO 60 mg DAILY DAPHNE Administration Piperacillin Sod/T azobactam 50 mls @ 12.5 mls /hr 05/29/23 04:00 05/31/23 12:15 Sod 3.375 gm/ So dium Chloride IV 12.5 mls/hr Q8H DAPHNE Administration Protocol Fluconazole 100 mg / N/A 50 mls @ 50 mls/h r 05/28/23 22:04 05/30/23 22:48 IV 50 mls/hr Q24H DAPHNE Administration Vancomycin/PEG/NAD A/Lysine/Water 1,500 mg in 300 m ls @ 200 mls/hr 05/31/23 03:00 05/31/23 02:24 Vancocin IV 200 mls/hr Q18H DAPHNE Administration Insulin Human Lisp ro 0 unit 05/28/23 21:00 05/31/23 17:48 Insulin Lispro 1 00 Unit/1 Ml SUBCUT 6 unit WM&BEDTIME DAPHNE Administration Protocol Levothyroxine Sodi um 50 mcg 05/29/23 09:00 05/31/23 08:44 Levothyroxine 50 Mcg Tablet PO 50 mcg DAILY DAPHNE Administration Metoprolol Succina te 50 mg 05/30/23 19:15 05/31/23 06:20 Metoprolol Succi mitch Er (24 Hr) 50 Mg Tablet PO 50 mg Q12H DAPHNE Administration Pantoprazole Sodiu m 40 mg 05/29/23 09:00 05/31/23 08:[address] 40 Mg Tablet PO 40 mg DAILY DAPHNE Administration Trazodone HCl 100 mg 05/30/23 23:15 05/30/23 23:39 Trazodone 100 Mg Tablet PO 100 mg BEDTIME DAPHNE Administration Vitals/I&O/Wt Last Vital Signs Temp 97.9 F 05/31/23 18:00 Pulse 77 05/31/23 18:00 Resp 20 H 05/31/23 18:00 BP 137/81 05/31/23 18:00 Pulse Ox 93 05/31/23 18:00 O2 Del Method Nasal Cannula 05/31/23 18:00 O2 Flow Rate 4 05/31/23 18:00 FiO2 50 05/30/23 08:00 05/31/23 05/31/23 05/31/23 06:59 14:59 22:59 Intake Total 290 / 2220 450 / 450 400 / 850 Output Total 2400 / 3750 1200 / 1200 300 / 1500 Balance -2110 / -1530 -750 / -750 100 / -650 Physical Exam HENMT: COMMON NORMALS: normocephalic and atraumatic HEAD & SCALP: normocephalic and atraumatic Resp: COMMON NORMALS: clear to auscultation bilaterally AUSCULTATION: clear to auscultation bilaterally Cardio: COMMON NORMALS: regular rate, regular rhythm, S1 normal heart sound present, S2 normal heart sound present, No gallops present (Cardio), No murmurs present (Cardio), No rub (Cardio) and Peripheral pulses 2+ throughout RATE: regular rate RHYTHM: regular rhythm HEART SOUNDS: S1 normal heart sound present and S2 normal heart sound present PERIPHERAL PULSES: Peripheral pulses 2+ throughout GI: COMMON NORMALS: Normal to inspection, nondistended, normoactive bowel sounds present, Soft to palpation, non-tender, No hepatosplenomegaly present and no masses AUSCULTATION: Yes normoactive bowel sounds PALPATION: Yes Soft to palpation and Yes No hepatosplenomegaly present RECTAL EXAM: Yes deferred Extremity: COMMON NORMALS: no clubbing, cyanosis or edema and no pedal edema Urinary Catheter Management: Navas: Cath Placed During This Visit: yes Reason for Continuing Indwelling Catheter: Accurate Measurement of Urinary Output in Critically Ill Patients Urinary Catheter Date of Insertion: 05/28/23 Urinary Catheter Time of Insertion: 19:22 Data 05/31/23 03:00 05/31/23 03:00 Micro: Microbiology 05/28/23 19:17 Urine Culture - Final Urine,Clean Catch Escherichia coli Escherichia coli#2 05/28/23 18:45 Blood Culture - Preliminary Blood Group g streptococcus 05/31/23 03:15 Blood Culture - Preliminary Blood SPECIMEN COLLECTED 05/31/23 03:00 Blood Culture - Preliminary Blood SPECIMEN COLLECTED 05/28/23 18:47 Blood Culture - Preliminary Blood Group g streptococcus A&P Assessment and plan (1) Sepsis: 68-year-old male with a past medical history of COPD diabetes, possible cardiomyopathy, 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 Sepsis criteria is met with fever, leukocytosis, tachypnea, tachycardia and endorgan dysfunction by way of metabolic encephalopathy. Source appears to be genitourinary infection. Lactate 1.4. Been given sepsis bolus in the emergency room, further fluids have not been continued due to reported history of cardiomyopathy. Blood culture:4/4 bottles positive for group G Streptococcus Urine culture gram-negative lexie Follow repeat blood culture ( 12/01/2022 ) : Urine culture: E. coli 2D echo:Normal left ventricular size with a slightly diminished ejection?fraction of 52%.? Relative hypokinesia of the septum.Grade I/IV ?diastolic dysfunction (abnormal relaxation filling pattern), ?normal to mildly elevated filling pressures. Thickened mitral valve. Mild mitral annular calcification. Mildly increased left atrial size. There is no pericardial effusion. CT of the pelvis without any focal gas or abscess. Noted changes of cellulitis as also seen on clinical exam. UA with positive nitrate, trace leukocyte esterase, 40-55 WBCs. Navas catheter has been placed in the emergency room Was appropriately covered with broad-spectrum antibiotics namely vancomycin and Zosyn. Based on the sensitivity vancomycin and Zosyn has been discontinued, he has been started on ceftriaxone. he is also on fluconazole 100 mg IV daily due to severe intertrigo. (2) Altered mental status: Suspect metabolic encephalopathy from sepsis. CT head without contrast:No Acute intracranial pathology. Also noted to have hypercapnia on his ABG today, however pH is 7.39, appearing to be compensated chronic respiratory failure. Currently has resolved. (3) Acute UTI: Acute complicated UTI, management as above (4) Cellulitis, pelvic: Management as above, currently on empiric antibiotics (5) COPD (chronic obstructive pulmonary disease): COPD with acute exacerbation and respiratory distress necessitating BiPAP ventilation Diffuse bilateral wheezing on exam. DuoNeb every 6 hours and budesonide every 12 hours scheduled nebulization. Titrate to maintain saturation of around 90%. Dexamethasone 6 mg IV daily, aim for short course until clinical improvement Low probability of PE since patient is on Eliquis for history of A-fib. Plan Reported history of cardiomyopathy. Per it appears his last known EF is 20%. Follow repeat 2D echo: Result reviewed. Diabetes mellitus: Insulin sliding scale History of A-fib: Currently in sinus rhythm, rate between 95 to 127/min. Continue metoprolol Continue Eliquis for anticoagulant Attestations Medical Necessity Statement*: Needs to be in hospital for IV antibiotics. Coding Level of Care Code Acute Code for [facility] Diagnoses Sepsis A41.9 Altered mental status R41.82 Acute UTI N39.0 Cellulitis, pelvic COPD (chronic obstructive pulmonary disease) J44.9
--- NOTE | 2023-05-31 18:19 | PC.NURSE ---
SHift SUmmary: Uneventful shift. patient was up to a chair for about 3 hours, but otherwise stayed in bed. Physical therapy tried to work with the patient twice today but he refused each time, nurse was only able to get patient up to a chair after explaining the benefits multiple times. Refused bed bad. Total urine output has been 1200mL. 1 bowel movement.
[2023-05-31] MEDS: cefTRIAXone 1,000 MG in sodium chloride 0.9% (plus) 50 ML 100 MG IV (19:55)
[2023-05-31] MEDS: trazodone 100 mg Tablet PO (20:28)
[2023-05-31] MEDS: atorvastatin 40 mg Tablet PO (20:29)
[2023-05-31 20:31] LABS: Glucose Point of Care 236 mg/dL (70-110)
[2023-05-31] MEDS: budesonide 0.5 mg/2 mL Neb INHALATION (20:42)
--- NOTE | 2023-05-31 21:59 | PC.NURSE ---
2115- Pt report given to Tamy. Pt transferred to room 264. S.
[2023-05-31] MEDS: fluconazole premix 100 MG in empty flexible container 1 EACH 50 MG IV (22:53)
--- NOTE | 2023-05-31 23:07 | PC.NURSE ---
TRANSFER FROM ICU Pt was received to room from ICU at 2134. Is alert and oriented. O2 in place at 5l per NC on transfer. Denies SOB. Has a loose sounding cough but says he doesn't get anything coughed up. Denies pain but does say his lower legs & feet are quite tender. Has redness & edema to BLE. Bottoms of feet are dry with crusty, cracking on heels. No open areas noted. Navas intact via urinary diversion between scrotum & anus. teletypesetter monitor was placed. Oriented to new room, Call light in reach
[2023-06-01] VITALS (12 sets, daily range): BP systolic 113–145; BP diastolic 75–81; PULSE 18–74; RESP 16–18; TEMP 36.4–36.9; O2SAT 92–95
[2023-06-01] MEDS: ipratropium-albuterol 3 mL Neb INHALATION ×2 (01:45→14:59)
[2023-06-01 06:14] LABS: Basophils % 0.2 %; Eosinophils % 0.3 %; Hematocrit 46.5 % (42.0-52.0); Hemoglobin 14.5 g/dL (11.7-16.6); Lymphocytes # 2.3 10^3/uL (0.8-4.8); Lymphocytes % 24.7 %; Mean Corpuscular HGB Conc 31.2 g/dL (30.0-36.0); Mean Corpuscular Hemoglobin 30.3 pg (28.0-34.0); Mean Corpuscular Volume 97.3 fl (80-94); Mean Platelet Volume 11.2 fL (7.4-10.4); Monocytes # 0.6 10^3/uL (0.2-0.9); Neutrophils # 6.01 10^3/uL (1.8-7.7); Neutrophils % 65.5 %; Nucleated Red Blood Cells % 0 %; Platelet Count 149 10^3/cmm (130-400); Red Blood Count 4.78 10^6/uL (4.1-5.3); Red Cell Distribution Width 14.1 % (12.1-15.1); White Blood Count 9.2 10^3/uL (4.0-10.0)
[2023-06-01] MEDS: metoprolol succinate ER (24 HR) 50 mg Tablet PO ×2 (06:34→18:21)
[2023-06-01 06:36] LABS: Anion Gap 12.6 (5-19); Blood Urea Nitrogen 34 mg/dL (8-23); Calcium 8.8 mg/dL (8.5-10.5); Carbon Dioxide 29 mmol/L (22-29); Chloride 98 mmol/L (98-107); Glucose 195 mg/dL (65-115); Osmolality Calculated 293 mOsm/kg (285-295); Potassium 4.6 mmol/L (3.5-5.1); Sodium 135 mmol/L (136-145)
[2023-06-01 07:08] LABS: Glucose Point of Care 167 mg/dL (70-110)
[2023-06-01] MEDS: insulin lispro 100 unit/1 mL SUBCUT ×4 (09:32→20:45)
[2023-06-01] MEDS: predniSONE 20 mg Tablet 40 MG PO (09:33)
[2023-06-01] MEDS: pantoprazole DR 40 mg Tablet PO (09:33)
[2023-06-01] MEDS: amlodipine 5 mg Tablet PO (09:33)
[2023-06-01] MEDS: apixaban 5 mg Tablet PO ×2 (09:33→20:41)
[2023-06-01] MEDS: duloxetine 60 mg Capsule PO (09:33)
[2023-06-01] MEDS: clotrimazole 1% cream 30 gm 1 APPLIC TOPICAL ×2 (09:38→17:53)
[2023-06-01] MEDS: levothyroxine 50 mcg Tablet PO (09:39)
[2023-06-01 11:01] LABS: Glucose Point of Care 167 mg/dL (70-110)
[2023-06-01] MEDS: hyDROXYzine 25 mg Capsule PO (13:35)
[2023-06-01 14:26] LABS: Adenovirus Not Detected (NOT DETECT); Chlamydia Pneumoniae Not Detected (NOT DETECT); Coronavirus 229E,HKU1,NL63,OC4 Not Detected (NOT DETECT); Human Metapneumovirus Not Detected (NOT DETECT); Human Rhinovirus/Enterovirus Not Detected (NOT DETECT); Influenza A Not Detected (NOT DETECT); Influenza A H1 Not Detected (NOT DETECT); Influenza A H1-2009 Not Detected (NOT DETECT); Influenza A H3 Not Detected (NOT DETECT); Influenza B Not Detected (NOT DETECT); Mycoplasma Pneumoniae Not Detected (NOT DETECT); Parainfluenza Virus Type 1 Not Detected (NOT DETECT); Parainfluenza Virus Type 2 Not Detected (NOT DETECT); Parainfluenza Virus Type 3 Not Detected (NOT DETECT); Parainfluenza Virus Type 4 Not Detected (NOT DETECT); Respiratory Syncytial Virus A Not Detected (NOT DETECT); Respiratory Syncytial Virus B Not Detected (NOT DETECT); SARS-COV-2 Not Detected (NOT DETECT)
--- NOTE | 2023-06-01 14:45 | XRR_ITS ---
PROCEDURE INFORMATION: Exam: XR Chest Exam date and time: 06/01/2023 6:43 PM Age: 68 years old Clinical indication: Device placement; Picc; Additional info: Picc placement TECHNIQUE: Imaging protocol: Radiologic exam of the chest. Views: 1 view. COMPARISON: CR (CHEST, ) 05/28/2023 6:37 PM FINDINGS: Tubes, catheters and devices: Right PICC line with tip in the distal SVC. Lungs: Mild atelectasis in the left lung base. The right lung is clear. Pleural spaces: Unremarkable. No pleural effusion. No pneumothorax. Heart/Mediastinum: Unremarkable. No cardiomegaly. Bones/joints: Unremarkable. XR/XR chest 1V portable [id number] IMPRESSION: 1. No acute findings. 2. PICC line tip in the distal SVC.
--- NOTE | 2023-06-01 15:05 | PC.NURSE ---
PICC Insertion Consulted by house charge for PICC insertion. Discussed procedure at bedside with patient, patient's spouse and primary nurse. PICC needed for home abx. Obtained written consent at bedside; PICC education provided at that time. Assessed RUE via ultrasound and determined R Basilic best target for cannulation due to size and lack of evidence of thrombus or stenosis. Using US guidance, MST and sterile technique, accessed vein x1 stick. Advanced device without resistance. Positive blood return; flushed easily. Device secured with statlock; dressed with bio patch and tegederm. EBL <10mL. Patient tolerated as expected. Reported to primary nurse. [ End ]
[2023-06-01] MEDS: cefTRIAXone 2,000 MG in sodium chloride 0.9% (plus) 50 ML 100 MG IV (15:14)
--- NOTE | 2023-06-01 15:32 | PM.PN ---
Subjective Subjective: Patient was seen and examined this morning has remained afebrile. Repeat blood cultures has remained negative so far. Medications: Medication Review Details: Generic Name Dose Route Start Last Admin Trade Name Bing PRN Reason Stop Dose Admin Albuterol/Ipratrop ium 3 ml 05/28/23 22:04 06/01/23 14:59 Ipratropium-Albu terol 3 Ml Neb INHALATION 3 ml Q6H.RESP DAPHNE Administration Amlodipine Besylat e 5 mg 05/29/23 09:00 06/01/23 09:33 Amlodipine 5 Mg Tablet PO 5 mg DAILY DAPHNE Administration Apixaban 5 mg 05/29/23 09:00 06/01/23 09:33 Apixaban 5 Mg Ta blet PO 5 mg BID@0900,2100 DAPHNE Administration Atorvastatin Calci um 40 mg 05/28/23 21:00 05/31/23 20:29 Atorvastatin 40 Mg Tablet PO 40 mg BEDTIME DAPHNE Administration Budesonide 0.5 mg 05/29/23 09:00 06/01/23 09:28 Budesonide 0.5 M g/2 Ml Neb INHALATION Not Given BID.RESPIRATORY S CH Clotrimazole 1 applic 05/29/23 09:00 06/01/23 09:38 Clotrimazole 1% Cream 30 Gm TOPICAL 1 applic BID DAPHNE Administration Duloxetine HCl 60 mg 05/29/23 09:00 06/01/23 09:33 Duloxetine 60 Mg Capsule PO 60 mg DAILY DAPHNE Administration Hydroxyzine Pamoat e 25 mg 06/01/23 12:48 06/01/23 13:35 Hydroxyzine 25 M g Capsule PO 25 mg TID PRN Administration ANXIETY Ceftriaxone Sodium 2,000 mg/ 50 mls @ 100 mls/ hr 06/01/23 15:00 06/01/23 15:14 Sodium Chloride IV 100 mls/hr Q24H DAPHNE Administration Protocol Insulin Human Lisp ro 0 unit 05/28/23 21:00 06/01/23 13:35 Insulin Lispro 1 00 Unit/1 Ml SUBCUT 4 unit WM&BEDTIME DAPHNE Administration Protocol Levothyroxine Sodi um 50 mcg 05/29/23 09:00 06/01/23 09:39 Levothyroxine 50 Mcg Tablet PO 50 mcg DAILY DAPHNE Administration Metoprolol Succina te 50 mg 05/30/23 19:15 06/01/23 06:34 Metoprolol Succi mitch Er (24 Hr) 50 Mg Tablet PO 50 mg Q12H DAPHNE Administration Pantoprazole Sodiu m 40 mg 05/29/23 09:00 06/01/23 09:[address] 40 Mg Tablet PO 40 mg DAILY DAPHNE Administration Prednisone 40 mg 06/01/23 09:00 06/01/23 09:33 Prednisone 20 Mg Tablet PO 40 mg DAILY DAPHNE Administration Trazodone HCl 100 mg 05/30/23 23:15 05/31/23 20:28 Trazodone 100 Mg Tablet PO 100 mg BEDTIME DAPHNE Administration Vitals/I&O/Wt Last Vital Signs Temp 98 F 06/01/23 12:00 Pulse 18 L 06/01/23 15:00 Resp 16 06/01/23 15:00 BP 113/75 06/01/23 12:00 Pulse Ox 94 06/01/23 15:00 O2 Del Method Nasal Cannula 06/01/23 15:00 O2 Flow Rate 4 06/01/23 15:00 FiO2 50 05/30/23 08:00 06/01/23 06/01/23 06/01/23 06:59 14:59 22:59 Intake Total 300 / 1250 240 / 240 Output Total 2150 / 3650 Balance -1850 / -2400 240 / 240 Physical Exam HENMT: COMMON NORMALS: normocephalic and atraumatic HEAD & SCALP: normocephalic and atraumatic Resp: COMMON NORMALS: clear to auscultation bilaterally AUSCULTATION: clear to auscultation bilaterally Cardio: COMMON NORMALS: regular rate, regular rhythm, S1 normal heart sound present, S2 normal heart sound present, No gallops present (Cardio), No murmurs present (Cardio), No rub (Cardio) and Peripheral pulses 2+ throughout RATE: regular rate RHYTHM: regular rhythm HEART SOUNDS: S1 normal heart sound present and S2 normal heart sound present PERIPHERAL PULSES: Peripheral pulses 2+ throughout GI: COMMON NORMALS: Normal to inspection, nondistended, normoactive bowel sounds present, Soft to palpation, non-tender, No hepatosplenomegaly present and no masses AUSCULTATION: Yes normoactive bowel sounds PALPATION: Yes Soft to palpation and Yes No hepatosplenomegaly present RECTAL EXAM: Yes deferred Extremity: COMMON NORMALS: no clubbing, cyanosis or edema and no pedal edema Urinary Catheter Management: Navas: Cath Placed During This Visit: yes Reason for Continuing Indwelling Catheter: Acute Urinary Retention or Obstruction Urinary Catheter Date of Insertion: 05/28/23 Urinary Catheter Time of Insertion: 19: Data 06/01/23 05:32 06/01/23 05:32 Micro: Microbiology 05/31/23 03:00 Blood Culture - Preliminary Blood NEGATIVE TO DATE 05/31/23 03:15 Blood Culture - Preliminary Blood NEGATIVE TO DATE 05/28/23 19:17 Urine Culture - Final Urine,Clean Catch Escherichia coli Escherichia coli#2 05/28/23 18:45 Blood Culture - Preliminary Blood Group g streptococcus A&P Assessment and plan (1) Sepsis: 68-year-old male with a past medical history of COPD diabetes, possible cardiomyopathy, 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 Sepsis criteria is met with fever, leukocytosis, tachypnea, tachycardia and endorgan dysfunction by way of metabolic encephalopathy. Source appears to be genitourinary infection. Lactate 1.4. Been given sepsis bolus in the emergency room, further fluids have not been continued due to reported history of cardiomyopathy. Blood culture:4/4 bottles positive for group G Streptococcus Urine culture gram-negative lexie Follow repeat blood culture ( 12/01/2022 ) : Urine culture: E. coli 2D echo:Normal left ventricular size with a slightly diminished ejection?fraction of 52%.? Relative hypokinesia of the septum.Grade I/IV ?diastolic dysfunction (abnormal relaxation filling pattern), ?normal to mildly elevated filling pressures. Thickened mitral valve. Mild mitral annular calcification. Mildly increased left atrial size. There is no pericardial effusion. CT of the pelvis without any focal gas or abscess. Noted changes of cellulitis as also seen on clinical exam. UA with positive nitrate, trace leukocyte esterase, 40-55 WBCs. Navas catheter has been placed in the emergency room Was appropriately covered with broad-spectrum antibiotics namely vancomycin and Zosyn. Based on the sensitivity vancomycin and Zosyn has been discontinued, he has been started on ceftriaxone. We will plan to discharge him on 2 g ceftriaxone daily for 2 weeks from the day the repeat blood culture is negative. He is also on fluconazole 100 mg IV daily due to severe intertrigo. We will discharge him on p.o. fluconazole 100 daily for another 5 days. He will continue with clotrimazole cream. (2) Altered mental status: Suspect metabolic encephalopathy from sepsis. CT head without contrast:No Acute intracranial pathology. Also noted to have hypercapnia on his ABG today, however pH is 7.39, appearing to be compensated chronic respiratory failure. Currently has resolved. (3) Acute UTI: Acute complicated UTI, management as above (4) Cellulitis, pelvic: Management as above, currently on empiric antibiotics (5) COPD (chronic obstructive pulmonary disease): COPD with acute exacerbation and respiratory distress necessitating BiPAP ventilation Diffuse bilateral wheezing on exam. DuoNeb every 6 hours and budesonide every 12 hours scheduled nebulization. Titrate to maintain saturation of around 90%. Dexamethasone 6 mg IV daily, aim for short course until clinical improvement Low probability of PE since patient is on Eliquis for history of A-fib. Plan Reported history of cardiomyopathy. Per it appears his last known EF is 20%. Follow repeat 2D echo: Result reviewed. Diabetes mellitus: Insulin sliding scale History of A-fib: Currently in sinus rhythm, rate between 95 to 127/min. Continue metoprolol Continue Eliquis for anticoagulant Attestations Medical Necessity Statement*: Needs to be in hospital for IV antibiotic. Coding Level of Care Code Acute Code for [facility] Diagnoses Sepsis A41.9 Altered mental status R41.82 Acute UTI N39.0 Cellulitis, pelvic COPD (chronic obstructive pulmonary disease) J44.9
[2023-06-01 16:45] LABS: Glucose Point of Care 189 mg/dL (70-110)
[2023-06-01] MEDS: trazodone 100 mg Tablet PO (20:41)
[2023-06-01] MEDS: atorvastatin 40 mg Tablet PO (20:41)
[2023-06-01] MEDS: fluconazole 100 mg Tablet PO (20:41)
[2023-06-01 20:47] LABS: Glucose Point of Care 293 mg/dL (70-110)
[2023-06-01 21:00] LABS: Glucose Point of Care 324 mg/dL (70-110)
[2023-06-02 05:39] LABS: Basophils # 0.1 10^3/uL (0.0-0.1); Basophils % 0.5 %; Hematocrit 48.8 % (42.0-52.0); Lymphocytes # 1.8 10^3/uL (0.8-4.8); Lymphocytes % 18.5 %; Mean Corpuscular HGB Conc 30.7 g/dL (30.0-36.0); Mean Corpuscular Hemoglobin 29.8 pg (28.0-34.0); Mean Platelet Volume 11.2 fL (7.4-10.4); Monocytes # 0.5 10^3/uL (0.2-0.9); Neutrophils # 7.01 10^3/uL (1.8-7.7); Nucleated Red Blood Cells % 0 %; Platelet Count 172 10^3/cmm (130-400); Red Blood Count 5.03 10^6/uL (4.1-5.3); Red Cell Distribution Width 13.9 % (12.1-15.1); White Blood Count 9.9 10^3/uL (4.0-10.0)
[2023-06-02 05:55] VITALS: PULSE 64
[2023-06-02 06:13] LABS: Alanine Aminotransferase 9 U/L (0-41); Albumin Level 3.2 g/dL (3.5-5.2); Alkaline Phosphatase 108 U/L (40-130); Anion Gap 15.3 (5-19); Aspartate Amino Transferase 8 U/L (0-40); Blood Urea Nitrogen 42 mg/dL (8-23); Calcium 8.6 mg/dL (8.5-10.5); Carbon Dioxide 24 mmol/L (22-29); Chloride 103 mmol/L (98-107); Globulin 3.1 g/dL (1.3-4.6); Glomerular Filtration Rate 66.4 mL/min (90-130); Glucose 305 mg/dL (65-115); Osmolality Calculated 306 mOsm/kg (285-295); Potassium 5.3 mmol/L (3.5-5.1); Sodium 137 mmol/L (136-145); Total Bilirubin 0.2 mg/dL (0.15-1.2); Total Protein 6.3 g/dL (6.6-8.7)
[2023-06-02] MEDS: metoprolol succinate ER (24 HR) 50 mg Tablet PO (06:25)
[2023-06-02 06:53] LABS: Glucose Point of Care 294 mg/dL (70-110)
[2023-06-02 08:00] VITALS: BP 146/86; PULSE 68; RESP 17; TEMP 36.3; O2SAT 94
[2023-06-02 08:37] VITALS: PULSE 62; RESP 16; O2SAT 93
[2023-06-02] MEDS: insulin lispro 100 unit/1 mL SUBCUT ×2 (09:27→13:05)
[2023-06-02] MEDS: clotrimazole 1% cream 30 gm 1 APPLIC TOPICAL (09:28)
[2023-06-02] MEDS: pantoprazole DR 40 mg Tablet PO (09:28)
[2023-06-02] MEDS: predniSONE 20 mg Tablet 40 MG PO (09:28)
[2023-06-02] MEDS: duloxetine 60 mg Capsule PO (09:28)
[2023-06-02] MEDS: levothyroxine 50 mcg Tablet PO (09:28)
[2023-06-02] MEDS: amlodipine 5 mg Tablet PO (09:28)
--- NOTE | 2023-06-02 10:32 | PC.SOCIAL ---
IMM Update pg 2 of IMM updated and reviewed w/ patient. Copy provided and Copy in chart dated, and initialed.
[2023-06-02] MEDS: apixaban 5 mg Tablet PO (11:03)
[2023-06-02 11:24] LABS: Glucose Point of Care 196 mg/dL (70-110)
[2023-06-02 12:00] VITALS: BP 149/84; PULSE 62; RESP 18; TEMP 36.3; O2SAT 94
--- NOTE | 2023-06-02 14:20 | PM.DCS ---
Discharge Providers Date of Admission: 05/28/23 20:47 Date of Discharge: June 02, 2023 Attending Provider at Admission: Kerri White MD Attending Provider at Discharge: Cruz Spears MD Primary Care Provider: Naheed Tesfaye Diagnoses at Discharge Discharge Diagnosis (1) Sepsis: Status: Acute (2) Altered mental status: Status: Acute (3) Acute UTI: Status: Acute (4) Cellulitis, pelvic: Status: Acute (5) COPD (chronic obstructive pulmonary disease): Status: Acute Reason for Visit Reason for Visit: AMS Hospital Course Hospital Course 68 year old male with a past medical history of diabetes mellitus, COPD, possible cardiomyopathy, history of 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 Since then he has a urinary conduit that drains inferior to his scrotum and leads to recurrent skin excoriation and intertrigo, he was brought in with chief complaint of fever and chills, altered mental status, was admitted for the management of sepsis secondary to, UTI, was altered mental status, 2/2 sepsis and UTI, blood culture during the hospital stay showed: Group G Streptococcus sensitive to ceftriaxone, urine culture grew E. coli sensitive to ceftriaxone, repeat blood culture was negative at the time of discharge. CT abdomen and pelvis showed: ?Left inguinal lymphadenopathy may be reactive. No right-sided lymphadenopathy.Mild pannus skin thickening and subcutaneous edema in keeping with reported cellulitis. No abscess or soft tissue gas.2D echo showed: Normal left ventricular size with a slightly diminished ejection ?fraction of 52%.? Relative hypokinesia of the septum.Grade I/IV ?diastolic dysfunction (abnormal relaxation filling pattern),?normal to mildly elevated filling pressures. ?Thickened mitral valve. Mild mitral annular calcification. Mildly increased left atrial size. There is no pericardial effusion. CT head without contrast no acute intracranial pathology. During the hospital stay patient was kept on Broad-spectrum antibiotics initially namely Vanco and Zosyn, he was also on IV fluconazole, as well as on, clotrimazole topical ointment, later antibiotic was stopped to ceftriaxone, he was discharged on IV ceftriaxone 2 g daily for another 2 weeks, patient was also discharged on fluconazole 100 mg p.o. daily for, another 7 days, as well as topical clotrimazole cream. Patient responded well to above medical management, and was discharged in stable condition to home, at the time of discharge he was afebrile hemodynamically stable, Bumex has been kept on hold, as currently patient is, euvolemic, patient will follow with his primary care physician and at that time, based on his volume status, decision regarding resuming Bumex can be taken. Physical Exam HENMT: COMMON NORMALS: normocephalic and atraumatic HEAD & SCALP: normocephalic and atraumatic Resp: COMMON NORMALS: clear to auscultation bilaterally AUSCULTATION: clear to auscultation bilaterally Cardio: COMMON NORMALS: regular rate, regular rhythm, S1 normal heart sound present, S2 normal heart sound present, No gallops present (Cardio), No murmurs present (Cardio), No rub (Cardio) and Peripheral pulses 2+ throughout RATE: regular rate RHYTHM: regular rhythm HEART SOUNDS: S1 normal heart sound present and S2 normal heart sound present PERIPHERAL PULSES: Peripheral pulses 2+ throughout GI: COMMON NORMALS: Normal to inspection, nondistended, normoactive bowel sounds present, Soft to palpation, non-tender, No hepatosplenomegaly present and no masses AUSCULTATION: Yes normoactive bowel sounds PALPATION: Yes Soft to palpation and Yes No hepatosplenomegaly present RECTAL EXAM: Yes deferred Extremity: COMMON NORMALS: no clubbing, cyanosis or edema and no pedal edema Urinary Catheter Management: Navas: Cath Placed During This Visit: yes Reason for Continuing Indwelling Catheter: Acute Urinary Retention or Obstruction Urinary Catheter Date of Insertion: 05/28/23 Urinary Catheter Time of Insertion: 19:22 Discharge Data Studies Completed and Pending Completed Studies During Hospitalization Category Date Time Status CT head wo con* [id number] Stat Cat Scan 05/28/23 18:[address] pelvis w con* [id number] Stat Cat Scan 05/28/23 18:28 Completed CXRP [XR chest 1V portable [id number]] Routine Exams 06/01/23 14:45 Completed XR chest 1V portable [id number] Stat Exams 05/28/23 18:28 Completed CV. echo complete* [id number] Routine Ultrasound 05/29/23 00:31 Completed CV. echo complete* [id number] Routine Ultrasound 05/30/23 18:54 Completed Pending at discharge Category Date Time Status Blood Culture Routine Lab 05/31/23 03:15 Results Blood Culture Stat Lab 05/28/23 18:45 Results CBC Auto Diff [Complete Blood Count w/Auto] AM LABS Lab 06/03/23 04:00 Ordered CMP [Comprehensive Metabolic Panel] AM LABS Lab 06/03/23 04:00 Ordered Radiology Impressions Head CT 05/28/23 18:28 IMPRESSION: Stable CT head. No acute intracranial abnormality. Pelvis CT 05/28/23 18:28 IMPRESSION: 1. Left inguinal lymphadenopathy may be reactive. No right-sided lymphadenopathy. 2. Mild pannus skin thickening and subcutaneous edema in keeping with reported cellulitis. No abscess or soft tissue gas. Chest X-Ray 06/01/23 14:45 IMPRESSION: 1. No acute findings. 2. PICC line tip in the distal SVC. Laboratory Results WBC 9.9 10^3/uL (4.0-10.0) 06/02/23 05:17 RBC 5.03 10^6/uL (4.1-5.3) 06/02/23 05:17 Hgb 15.0 g/dL (11.7-16.6) 06/02/23 05:17 Hct 48.8 % (42.0-52.0) 06/02/23 05:17 MCV 97.0 fl (80-94) H 06/02/23 05:17 MCH 29.8 pg (28.0-34.0) 06/02/23 05:17 MCHC 30.7 g/dL (30.0-36.0) 06/02/23 05:17 RDW 13.9 % (12.1-15.1) 06/02/23 05:17 Plt Count 172 10^3/cmm (130-400) 06/02/23 05:17 MPV 11.2 fL (7.4-10.4) H 06/02/23 05:17 Neut % (Auto) 71.0 % 06/02/23 05:17 Lymph % (Auto) 18.5 % 06/02/23 05:17 [place] % (Auto) 5.0 % 06/02/23 05:17 Eos % (Auto) 0.0 % 06/02/23 05:17 Baso % (Auto) 0.5 % 06/02/23 05:17 Neut # (Auto) 7.01 10^3/uL (1.8-7.7) 06/02/23 05:17 Lymph # (Auto) 1.8 10^3/uL (0.8-4.8) 06/02/23 05:17 [place] # (Auto) 0.5 10^3/uL (0.2-0.9) 06/02/23 05:17 Eos # (Auto) 0.0 10^3/uL (0.0-0.8) 06/02/23 05:17 Baso # (Auto) 0.1 10^3/uL (0.0-0.1) 06/02/23 05:17 Nucleated RBC % (auto) 0 % 06/02/23 05:17 Nucleated RBCs # 0.0 /100WBC 06/02/23 05:17 D-Dimer 0.69 ug/mIFEU (0-0.59) H 05/28/23 17:50 Specimen Type Arterial 05/28/23 18:36 Sample Site Brachial, left 05/28/23 18:36 ABG pH 7.39 (7.35-7.45) 05/28/23 18:36 ABG pCO2 56.8 mmHg (35-45) H 05/28/23 18:36 ABG pO2 62.3 mmHg (80.0-100.0) L 05/28/23 18:36 ABG HCO3 34.4 mmol/L (22-26) H 05/28/23 18:36 ABG Base Excess 7.2 mmol/L (-2.0-2.0) H 05/28/23 18:36 Praful Test N/a 05/28/23 18:36 Hematocrit 50.4 % (42-52) 05/28/23 18:36 O2 Delivery Device Nc 05/28/23 18:36 O2 Liters/Min 6.0 % 05/28/23 18:36 FiO2 44.0 % 05/28/23 18:36 Customer Service Receptionist ID Amh 05/28/23 18:36 Sodium 137 mmol/L (136-145) 06/02/23 05:17 Potassium 5.3 mmol/L (3.5-5.1) H 06/02/23 05:17 Chloride 103 mmol/L (98-107) 06/02/23 05:17 Carbon Dioxide 24 mmol/L (22-29) 06/02/23 05:17 Anion Gap 15.3 (5-19) 06/02/23 05:17 BUN 42 mg/dL (8-23) H 06/02/23 05:17 Creatinine 1.1 mg/dL (0.7-1.2) 06/02/23 05:17 GFR Calculation 66.4 mL/min (90-130) L 06/02/23 05:17 Glucose 305 mg/dL (65-115) H 06/02/23 05:17 POC Glucose 196 mg/dL (70-110) H 06/02/23 11:07 Calculated Osmolality 306 mOsm/kg (285-295) H 06/02/23 05:17 Lactic Acid 1.4 mmol/L (0.5-2.2) 05/28/23 18:47 Calcium 8.6 mg/dL (8.5-10.5) 06/02/23 05:17 Total Bilirubin 0.2 mg/dL (0.15-1.2) 06/02/23 05:17 AST 8 U/L (0-40) 06/02/23 05:17 ALT 9 U/L (0-41) 06/02/23 05:17 Alkaline Phosphatase 108 U/L (40-130) 06/02/23 05:17 Troponin T Baseline 29 ng/L (0-15) H 05/28/23 17:50 Troponin T 120 Minute 28.07 ng/L (0-15) H 05/28/23 21:15 Delta Troponin T -0.93 ABS# (0-10) L 05/28/23 21:15 Troponin T Hi Sens 6Hr 28.96 ng/L (0-15) H 05/29/23 02:40 Troponin T Hi Sens 6Hr Delta -0.04 ng/L (0-12) L 05/29/23 02:40 C-Reactive Protein 32.3 mg/L (0.0-4.9) H 05/28/23 17:50 NT-Pro-B Natriuret Pep 379 pg/mL (0-125) H 05/28/23 17:50 Total Protein 6.3 g/dL (6.6-8.7) L 06/02/23 05:17 Albumin 3.2 g/dL (3.5-5.2) L 06/02/23 05:17 Globulin 3.1 g/dL (1.3-4.6) 06/02/23 05:17 TSH 1.34 uIU/mL (0.27-4.20) 05/28/23 17:50 Urine Color Yellow (Yellow) 05/28/23 19:17 Urine Appearance Cloudy (CLEAR) A 05/28/23 19:17 Urine pH 5 (5-7) 05/28/23 19:17 Ur Specific [place] 1.010 (1.005-1.030) 05/28/23 19:17 Urine Protein 3+ (Negative) H 05/28/23 19:17 Urine Glucose (UA) 4+ (Normal) H 05/28/23 19:17 Urine Ketones 1+ (Negative) H 05/28/23 19:17 Urine Blood 2+ (Negative) H 05/28/23 19:17 Urine Nitrate Positive (Negative) H 05/28/23 19:17 Urine Bilirubin Neg (Negative) 05/28/23 19:17 Urine Urobilinogen Norm mg/dL (Negative) 05/28/23 19:17 Ur Leukocyte Esterase Trace (Negative) H 05/28/23 19:17 Urine RBC 5-10 /hpf (0-2) H 05/28/23 19:17 Urine WBC 40-55 /hpf (0-5) H 05/28/23 19:17 Ur Squamous Epith Cells 0-4 /hpf (0-5) H 05/28/23 19:17 Amorphous Sediment Not Reportable 05/28/23 19:17 Urine Bacteria 2+ /hpf (NONE) H 05/28/23 19:17 Nasal Influ A H1 2008 PCR Not detected (NOT DETECT) 06/01/23 12:32 Vancomycin Trough 26.2 ug/mL (10-15) H* 05/30/23 19:16 Adenovirus (PCR) Not detected (NOT DETECT) 06/01/23 12:32 C. pneumoniae DNA (PCR) Not detected (NOT DETECT) 06/01/23 12:32 Coronavirus 229E (PCR) Not detected (NOT DETECT) 06/01/23 12:32 Human Metapneumovir PCR Not detected (NOT DETECT) 06/01/23 12:32 Influenza A (H1) PCR Not detected (NOT DETECT) 06/01/23 12:32 Influenza A (H3) PCR Not detected (NOT DETECT) 06/01/23 12:32 Influenza Type A (PCR) Not detected (NOT DETECT) 06/01/23 12:32 Influenza Type B (PCR) Not detected (NOT DETECT) 06/01/23 12:32 M. pneumoniae (PCR) Not detected (NOT DETECT) 06/01/23 12:32 Parainfluenza 1 (PCR) Not detected (NOT DETECT) 06/01/23 12:32 Parainfluenza 2 (PCR) Not detected (NOT DETECT) 06/01/23 12:32 Parainfluenza 3 (PCR) Not detected (NOT DETECT) 06/01/23 12:32 Parainfluenza 4 (PCR) Not detected (NOT DETECT) 06/01/23 12:32 RSV Type A (PCR) Not detected (NOT DETECT) 06/01/23 12:32 RSV Type B (PCR) Not detected (NOT DETECT) 06/01/23 12:32 Entero/Rhino (PCR) Not detected (NOT DETECT) 06/01/23 12:32 SARS-CoV-2 (PCR) Not detected (NOT DETECT) 06/01/23 12:32 Vitals Last Vital Signs Temp 97.3 F L 06/02/23 12:00 Pulse 62 06/02/23 12:00 Resp 18 06/02/23 12:00 BP 149/84 06/02/23 12:00 Pulse Ox 94 06/02/23 12:00 O2 Del Method Nasal Cannula 06/02/23 13:35 O2 Flow Rate 4 06/02/23 13:35 FiO2 50 05/30/23 08:00 Discharge Plan Discharge Patient Disposition: Home Health Service Condition: Stable Prescriptions: New fluconazole 100 mg tablet 100 mg PO DAILY 7 Days Qty: 7 0RF clotrimazole 1 % ointment 1 applic topical BID Qty: 56.7 0RF Continued insulin aspart U-100 [Novolog FlexPen U-100 Insulin] 100 unit/mL (3 mL) insulin pen See Rx Instructions .ROUTE .COMPLEX Rx Instructions: sliding scale three times a day pregabalin 150 mg capsule 150 mg PO TID insulin glargine [Lantus Solostar U-100 Insulin] 100 unit/mL (3 mL) insulin pen 60 unit SUBCUT QAM levothyroxine 50 mcg tablet 50 mcg PO QAM hydroxyzine HCl 25 mg tablet 25 mg PO TID PRN (Reason: Anxiety) duloxetine 60 mg Capsule,Delayed Release(Dr/Ec) 60 mg PO BEDTIME albuterol sulfate 90 mcg/actuation HFA aerosol inhaler 2 inh inhalation Q8H PRN (Reason: shortness of breath or wheezing) Qty: 8.5 3RF fluticasone propion-salmeterol [Advair Diskus] 250-50 mcg/dose blister with device 1 inh inhalation BID Qty: 60 3RF Eliquis 5 mg tablet 5 mg PO BID metoprolol succinate 50 mg tablet extended release 24 hr 50 mg PO Q12H atorvastatin 40 mg tablet 40 mg PO BEDTIME Farxiga 5 mg tablet 5 mg PO QAM pantoprazole 40 mg tablet,delayed release (DR/EC) 40 mg PO QAM trazodone 100 mg tablet 100 mg PO BEDTIME Held bumetanide 1 mg tablet 1 mg PO QAM Hold Instructions: Resume on 06/19/23. Patient will follow up with his pcp and decision regarding resuming it can be taken at that time, depending upon the volume status at that time. Discharge Orders: Discharge Order (Routine); Ordered 06/02/23 Ordered By: Cruz Spears Other Ambulatory Orders: DME: Hospital Bed (Order) Location: None Selected Ordered By: Cruz Spears Referrals: [facility] [Outside] Naheed Tesfaye PARAEDUCATOR [Primary Care Provider] - 06/06/23 10:30 am Patient Instructions: Hyponatremia (ED), Benzodiazepine Use Disorder (ED), Dementia (ED), Non-diabetic Hypoglycemia (ED), Hypoglycemia in a Person with Diabetes (ED), Concussion (ED), Alcohol Intoxication (ED), Subarachnoid Hemorrhage (GEN), Altered Mental Status (ED), Opioid Safety Activity Restrictions/Additional Instructions: Maintain Navas until f/up w/ PCP on 06/06/2023 to make sure groin area is healing. Discharge Attestations Time Spent in Discharge Care*: less than 30 min Quality Metrics Clinical Quality Measures [ No reported AMI, CVA or VTE this stay] Coding Level of Care Code Acute Code for Chg Fwd Diagnoses Sepsis A41.9 Altered mental status R41.82 Acute UTI N39.0 Cellulitis, pelvic COPD (chronic obstructive pulmonary disease) J44.9
[2023-06-02] MEDS: cefTRIAXone 2,000 MG in sodium chloride 0.9% (plus) 50 ML 100 MG IV (14:31)
[2023-06-02 16:00] VITALS: BP 126/75; PULSE 63; RESP 19; TEMP 36.3; O2SAT 94
[2023-06-02 16:50] LABS: Glucose Point of Care 253 mg/dL (70-110)
[2023-06-02 17:17] VITALS: BP 149/84; PULSE 62; RESP 18; TEMP 36.3; O2SAT 94
== END 2023-06-02 17:20 | disposition home health service (06) | DRG 871 ==
LOC: ER 20:39 → ICU 21:12 → MEDSURG 05-31 21:42
PROVIDERS: Admitting Provider Student in an Organized Health Care Education/Training Program; Emergency Provider Emergency Medicine; PCP Nurse Practitioner Family; Visit Provider Internal Medicine
DX: A41.9 Sepsis, unspecified organism (principal); G93.41 Metabolic encephalopathy; K65.0 Generalized (acute) peritonitis; J96.90 Respiratory failure, unspecified, unspecified whether with hypoxia or hypercapnia; N39.0 Urinary tract infection, site not specified; J44.1 Chronic obstructive pulmonary disease with (acute) exacerbation; I12.9 Hypertensive chronic kidney disease with stage 1 through stage 4 chronic kidney disease, or unspecified chronic kidney disease; E11.22 Type 2 diabetes mellitus with diabetic chronic kidney disease; F17.210 Nicotine dependence, cigarettes, uncomplicated; N18.30 Chronic kidney disease, stage 3 unspecified; Z79.4 Long term (current) use of insulin; Z79.01 Long term (current) use of anticoagulants; E11.51 Type 2 diabetes mellitus with diabetic peripheral angiopathy without gangrene; B96.20 Unspecified Escherichia coli [E. coli] as the cause of diseases classified elsewhere; Z99.81 Dependence on supplemental oxygen; L30.4 Erythema intertrigo; F41.9 Anxiety disorder, unspecified; I34.81 Nonrheumatic mitral (valve) annulus calcification; E11.42 Type 2 diabetes mellitus with diabetic polyneuropathy; E78.5 Hyperlipidemia, unspecified; I48.91 Unspecified atrial fibrillation; I51.9 Heart disease, unspecified; F32.A Depression, unspecified; Z87.440 Personal history of urinary (tract) infections; Z85.45 Personal history of malignant neoplasm of unspecified male genital organ; Z96.0 Presence of urogenital implants; Z90.79 Acquired absence of other genital organ(s); Z79.84 Long term (current) use of oral hypoglycemic drugs
CPT/HCPCS: 36415; 36416; 36573; 36600; 51702; 70450; 71045; 72193; 80048; 80053; 80202; 81001; 82803; 82962; 83605; 83880; 84443; 84484; 85025; 85378; 86140; 87040; 87077; 87086; 87150; 87186; 87205; 87486; 87581; 87633; 92523; 92610; 93005; 93306; 94640; 94660; 96365; 96367; 96372; 96375; 96376; 97110; 97162; 97530; 99285; J0696; J1100; J1450; J1650; J1815; J1885; J2543; J3370; J7030; J7512; J7626; Q9967

== ENCOUNTER 2023-06-03 16:10 | Outpatient (CLI) | payer MEDICARE, SELFPAY ==
[2023-06-03 22:36] LABS: Basophils % 0.2 %; Eosinophils # 0.3 10^3/uL (0.0-0.8); Eosinophils % 1.9 %; Hematocrit 45.9 % (42.0-52.0); Hemoglobin 14.8 g/dL (11.7-16.6); Lymphocytes # 3.1 10^3/uL (0.8-4.8); Lymphocytes % 23.5 %; Mean Corpuscular HGB Conc 32.2 g/dL (30.0-36.0); Mean Corpuscular Hemoglobin 30.3 pg (28.0-34.0); Mean Corpuscular Volume 93.9 fl (80-94); Mean Platelet Volume 11.7 fL (7.4-10.4); Monocytes # 0.8 10^3/uL (0.2-0.9); Monocytes % 6.2 %; Neutrophils # 8.05 10^3/uL (1.8-7.7); Neutrophils % 60.7 %; Nucleated Red Blood Cells % 0 %; Platelet Count 199 10^3/cmm (130-400); Red Blood Count 4.89 10^6/uL (4.1-5.3); Red Cell Distribution Width 13.7 % (12.1-15.1); White Blood Count 13.3 10^3/uL (4.0-10.0)
== END 2023-06-03 16:11 | disposition home or self-care (01) ==
LOC: LAB 22:19
PROVIDERS: PCP Nurse Practitioner Family; Visit Provider Nurse Practitioner Family
DX: Z01.89 Encounter for other specified special examinations (principal)
CPT/HCPCS: 85025

== ENCOUNTER 2023-06-14 12:31 | Outpatient (CLI) | payer MEDICARE, SELFPAY ==
[2023-06-14 12:55] LABS: Basophils # 0.1 10^3/uL (0.0-0.1); Basophils % 0.6 %; Eosinophils # 0.3 10^3/uL (0.0-0.8); Eosinophils % 3.5 %; Hematocrit 44.4 % (42.0-52.0); Hemoglobin 14.4 g/dL (11.7-16.6); Lymphocytes # 2.6 10^3/uL (0.8-4.8); Lymphocytes % 27.1 %; Mean Corpuscular HGB Conc 32.4 g/dL (30.0-36.0); Mean Corpuscular Hemoglobin 30.8 pg (28.0-34.0); Mean Corpuscular Volume 95.1 fl (80-94); Mean Platelet Volume 11.3 fL (7.4-10.4); Monocytes # 0.9 10^3/uL (0.2-0.9); Monocytes % 9.4 %; Neutrophils # 5.59 10^3/uL (1.8-7.7); Neutrophils % 58.2 %; Nucleated Red Blood Cells % 0 %; Platelet Count 153 10^3/cmm (130-400); Red Blood Count 4.67 10^6/uL (4.1-5.3); Red Cell Distribution Width 14.3 % (12.1-15.1); White Blood Count 9.6 10^3/uL (4.0-10.0)
== END 2023-06-14 12:32 | disposition home or self-care (01) ==
LOC: LAB 12:34
PROVIDERS: PCP Nurse Practitioner Family; Visit Provider Nurse Practitioner Family
DX: A41.9 Sepsis, unspecified organism (principal); E03.9 Hypothyroidism, unspecified
CPT/HCPCS: 85025

== ENCOUNTER 2023-06-19 15:40 | Outpatient (CLI) | payer MEDICARE, SELFPAY ==
[2023-06-19 16:20] LABS: Basophils # 0.1 10^3/uL (0.0-0.1); Basophils % 0.6 %; Eosinophils # 0.6 10^3/uL (0.0-0.8); Eosinophils % 6.5 %; Hematocrit 45.7 % (42.0-52.0); Hemoglobin 14.6 g/dL (11.7-16.6); Lymphocytes % 35.3 %; Mean Corpuscular HGB Conc 31.9 g/dL (30.0-36.0); Mean Corpuscular Hemoglobin 29.9 pg (28.0-34.0); Mean Corpuscular Volume 93.6 fl (80-94); Mean Platelet Volume 11.4 fL (7.4-10.4); Monocytes # 0.7 10^3/uL (0.2-0.9); Monocytes % 8.1 %; Neutrophils # 4.16 10^3/uL (1.8-7.7); Neutrophils % 48.3 %; Nucleated Red Blood Cells % 0 %; Platelet Count 126 10^3/cmm (130-400); Red Blood Count 4.88 10^6/uL (4.1-5.3); Red Cell Distribution Width 14.6 % (12.1-15.1); White Blood Count 8.6 10^3/uL (4.0-10.0)
[2023-06-19 16:49] LABS: Alanine Aminotransferase 10 U/L (0-41); Albumin Level 3.4 g/dL (3.5-5.2); Alkaline Phosphatase 120 U/L (40-130); Anion Gap 12.5 (5-19); Aspartate Amino Transferase 15 U/L (0-40); Blood Urea Nitrogen 21 mg/dL (8-23); Calcium 9.3 mg/dL (8.5-10.5); Carbon Dioxide 33 mmol/L (22-29); Chloride 98 mmol/L (98-107); Globulin 4.5 g/dL (1.3-4.6); Glucose 171 mg/dL (65-115); Osmolality Calculated 295 mOsm/kg (285-295); Potassium 4.5 mmol/L (3.5-5.1); Sodium 139 mmol/L (136-145); Thyroid Stimulating Hormone 2.86 uIU/mL (0.27-4.20); Total Bilirubin 0.4 mg/dL (0.15-1.2); Total Protein 7.9 g/dL (6.6-8.7)
== END 2023-06-19 15:41 | disposition home or self-care (01) ==
PROVIDERS: PCP Nurse Practitioner Family; Visit Provider Nurse Practitioner Family
DX: A41.9 Sepsis, unspecified organism (principal); Z79.899 Other long term (current) drug therapy
CPT/HCPCS: 80053; 84443; 85025

== ENCOUNTER 2023-06-20 14:43 | Outpatient (CLI) | payer MEDICARE, SELFPAY ==
[2023-06-20 15:22] LABS: Blood Urine 3+ (Negative); Glucose Urine UA 4+ (Normal); Ketones Urine Negative (Negative); Nitrate Urine Negative (Negative); Protein Urine 1+ (Negative); Specific Gravity, Urine 1.015 (1.005-1.030); Urine Appearance Clear (CLEAR); Urine Color Yellow (Yellow); pH Urine 6 (5-7)
[2023-06-20 15:23] LABS: Add Urine Microscopic? YES; Bilirubin Urine Neg (Negative); Leukocyte Esterase Urine Trace (Negative); Urobilinogen Urine Norm (Negative)
[2023-06-20 15:24] LABS: Add Urine Culture? Yes; Bacteria Urine TRACE /hpf; Squamous Epithelial Cell Urine 0-4 /hpf (0-5)
== END 2023-06-20 14:44 | disposition home or self-care (01) ==
LOC: LAB 14:45
PROVIDERS: PCP Nurse Practitioner Family; Visit Provider Nurse Practitioner Family
DX: N39.0 Urinary tract infection, site not specified (principal)
CPT/HCPCS: 81001; 87077; 87086; 87186

== ENCOUNTER 2023-07-04 15:51 | Outpatient (CLI) | payer MEDICARE, SELFPAY ==
[2023-07-04 17:21] LABS: Add Urine Microscopic? YES; Bilirubin Urine Neg (Negative); Blood Urine 2+ (Negative); Glucose Urine UA 4+ (Normal); Ketones Urine Negative (Negative); Leukocyte Esterase Urine Negative (Negative); Nitrate Urine Negative (Negative); Protein Urine Neg (Negative); Specific Gravity, Urine 1.015 (1.005-1.030); Urine Appearance Cloudy (CLEAR); Urine Color Yellow (Yellow); Urobilinogen Urine Norm (Negative); pH Urine 5 (5-7)
[2023-07-04 17:22] LABS: Add Urine Culture? No; Bacteria Urine 4+ /hpf; Squamous Epithelial Cell Urine 0-4 /hpf (0-5)
== END 2023-07-04 15:52 | disposition home or self-care (01) ==
PROVIDERS: PCP Nurse Practitioner Family; Visit Provider Nurse Practitioner Family
DX: A41.9 Sepsis, unspecified organism (principal)
CPT/HCPCS: 81001; 87077; 87086; 87186

== ENCOUNTER 2023-07-14 11:06 | Outpatient (CLI) | payer MEDICARE, SELFPAY ==
[2023-07-14 11:56] LABS: Basophils # 0.1 10^3/uL (0.0-0.1); Basophils % 1.1 %; Eosinophils # 1.1 10^3/uL (0.0-0.8); Eosinophils % 14.1 %; Hematocrit 43.2 % (37-53); Lymphocytes # 2.4 10^3/uL (0.8-4.8); Lymphocytes % 30.2 %; Mean Corpuscular HGB Conc 31.7 g/dL (30-55); Mean Corpuscular Hemoglobin 30.5 pg (27-33); Mean Corpuscular Volume 96.2 fl (82-101); Mean Platelet Volume 11.6 fL (7.4-10.4); Monocytes # 0.6 10^3/uL (0.2-0.9); Neutrophils # 3.57 10^3/uL (1.8-7.7); Neutrophils % 44.6 %; Nucleated Red Blood Cells % 0 %; Platelet Count 141 10^3/cmm (157-399); Red Blood Count 4.49 10^6/uL (3.85-5.65); Red Cell Distribution Width 15.9 % (12.1-15.1); White Blood Count 8.01 10^3/uL (3.29-11.43)
[2023-07-14 12:11] LABS: Alanine Aminotransferase 88 U/L (0-41); Albumin Level 3.4 g/dL (3.5-5.2); Alkaline Phosphatase 339 U/L (40-130); Anion Gap 9.7 (5-19); Aspartate Amino Transferase 50 U/L (0-40); Blood Urea Nitrogen 40 mg/dL (8-23); Calcium 8.8 mg/dL (8.5-10.5); Carbon Dioxide 35 mmol/L (22-29); Chloride 95 mmol/L (98-107); Globulin 4.7 g/dL (1.3-4.6); Glomerular Filtration Rate 40.2 mL/min (90-130); Glucose 247 mg/dL (65-115); Osmolality Calculated 298 mOsm/kg (285-295); Potassium 4.7 mmol/L (3.5-5.1); Sodium 135 mmol/L (136-145); Total Bilirubin 0.4 mg/dL (0.15-1.2); Total Protein 8.1 g/dL (6.6-8.7)
== END 2023-07-14 11:07 | disposition home or self-care (01) ==
PROVIDERS: PCP Nurse Practitioner Family; Visit Provider Nurse Practitioner Family
DX: A41.9 Sepsis, unspecified organism (principal)
CPT/HCPCS: 80053; 85025